=== PATIENT | female | born 1965 | race Caucasian/White ===

== ENCOUNTER 2022-06-24 10:52 | Inpatient (IN) ==
[2022-06-24] MEDS ORDERED: cefTRIAXone SODIUM 2,000 MG/70 ML BAG IV STA (11:21)
[2022-06-24] MEDS ORDERED: ALBUT/IPRATROP 3MG/0.5MG NEB 3 ML VIAL NEB ONE (11:21)
[2022-06-24] MEDS ORDERED: methylPREDNISolone 125 MG/2 ML VIAL IV STA (11:21)
--- NOTE | 2022-06-24 11:34 | Emergency Department Note ---
Impression & Plan Hypoxia, COPD exacerbation, SOB (shortness of breath), Left leg swelling ED Provider Note NAME: KYLAH Chen YOUNG AGE: 56 SEX: F : 1965 ARRIVES VIA: Ambulance INFORMANT: [Patient][nursing] ED PROVIDER(S): [Griffin Palafox MD] CHIEF COMPLAINT: Short of breath HISTORY OF PRESENT ILLNESS: The patient is a 56-year-old female with a history of COPD. She has noticed increasing shortness of breath for a few months. In the last 2 or 3 weeks, she has had increased cough. The cough has been productive. She has had some chills and sweats but no fever. She feels much worse with exertion. She denies chest pain. There has been no abdominal pain. The patient has notic ed some bloody stools with bowel movements but this has been an ongoing issue she feels from her hemorrhoids. The patient went to her doctor's office today, her O2 saturation was low at 84%, she does not typically wear oxygen. She was sent to the hospital for evaluation. REVIEW OF SYSTEMS: See HPI for pertinent positives and negatives. A total of ten systems were r eviewed and were otherwise negative. PMHx/PSHx: See Below SOCIAL HISTORY: See Below. PHYSICAL EXAM: GENERAL: Patient is in no acute distress. HEENT: No acute trauma, normocephalic atraumatic, mucous membranes moist, no nasal congestion, no scleral icterus. NECK: No stridor, no adenopathy, no meningismus, trachea is midline. LUNGS: The patient does seem short of breath with speaking. No actual respiratory distress. She has wheezing bilaterally with diminished breath sounds bilaterally. HEART: Without murmurs gallops or rubs, regular rate and rhythm. ABDOMEN: Soft, nontender, bowel sounds positive, no peritonitis. EXTREMITIES: No cyanosis. The left lower extremity is edematous when compared to the right. There is some slight erythema to the left lower extremity but no increased warmth. NEUROLOGIC: Oriented x 3, no acute motor or sensory deficits, no focal weakness. SKIN: No jaundice, no diaphoresis. DIFFERENTIAL DIAGNOSIS: Reactive airway disease, pneumonia, COVID-19, influenza, RSV, pneumothorax, COPD, CHF, infection, cardiac ischemia, pulmonary embolism, bronchitis, m usculoskeletal, gastrointestinal, as well as other pathologies. EMERGENCY DEPARTMENT COURSE/PROCEDURES: ECG: Indication was shortness of breath. The ECG shows a normal sinus rhythm with a rate of 67. There is a right bundle branch block. There is no ST elevation. No PVCs. The QTc is 456. Compared to an ECG from 31 May 2018, I see no significant change. Continuous Cardiac Monitoring: An order was placed for continuous cardiac monitoring. The monitor shows a rate of 72 with normal sinus rhythm. Critical Care Note: I have personally spent 49 minutes of critical care time in the direct management of this patient. This includes bedside care, interpretation of diagnostic studies, and testing, discussion with consultants, patient, and family members, and other required patient management activities. This 49 minutes is in excess of all separately billable procedures. MEDICAL DECISION MAKING: There is no leukocytosis or concerning anemia. There is a normal platelet count. No coagulopathy. No renal failure or significant electrolyte abnormality. Lactic acid level is not elevated making severe sepsis less likely. No worrisome liver enzyme elevation. ECG shows a normal sinus rhythm, no ischemia. Cardiac enzyme testing x1 is not consistent with acute cardiac injury. Urinalysis does not show infection. COVID, influenza and RSV test were negative. Chest x-ray did not show pneumonia or CHF, no pneumothorax. The patient was wheezing and seemed quite short of breath. She was recorded hypoxic at her doctor's office. The patient was aggressively managed. She was given a 1 hour DuoNeb, she received IV Solu-Medrol and IV ceftriaxone. The ceftriaxone was for empiric antibiotic coverage. The patient is in need of a hospital stay. She is in no condition to be discharged home. She appears to be having an exacerbation of her COPD. I did speak with the case management team, I talked to the patient. The on-call hospitalist was consulted. Past Med/Surg History Medical History Asthma inhalers and nebulizer prn Biliary colic Chronic back pain on suboxone Chronic hepatitis Treated with Mavyret, 8 week course. Finished in 05/2019 Closed head injury pt states "a long time ago" COPD (chronic obstructive pulmonary disease) Depression Emphysema lung History of drug abuse History of DVT (deep vein thrombosis) hx of in left leg HTN (hypertension) Migraine Morbid obesity with BMI of 40.0-44.9, adult Obesity, morbid, BMI 40.0-49.9 Personal history of stroke with residual effects 12/2016--left side pain--no neurologist [facility] Reactive lymphoid hyperplasia (RLH) of head, face and neck Tobacco use Surgical History History of bilateral tubal ligation History of section x3 History of colonoscopy History of herniorrhaphy History of tooth extraction all teeth removed Hx of bilateral breast reduction surgery Family History Aunt Family history of diabetes mellitus Mother Family history of diabetes mellitus Other Cancer Diabetes Heart disease Hypertension Liver transplant recipient No family history of adverse response to anesthesia Social History Smoking Status: Current every day smoker Cigarettes Per Day: 0.5; Second Hand Exposure: Yes (father smoked); Do You Dip or Chew Tobacco: No; Tobacco Cessation Education Requested by Patient: No Hx Alcohol Use: No Hx Substance Use: Yes (pt states currently on suboxone) Preferred Language: Uzbek Communication Ability: Impaired Lead Presser Required: Yes and No Beliefs That Will Affect Care: None marital status: in relationship Current Living Situation: Other Current Living Situation Comment: patient states she lives with "her old man" Feels Safe at Home: Yes Safety Concerns: Feels Safe At This Time Assistive Devices: Cane and Glasses Assistive Devices Comment: pt states she has a cane at home but doesn't use it Allergies Allergies Allergy/AdvReac Type Severity Reaction Status Date / Time Penicillins Allergy Severe Hives Verified 05/03/20 12:20 adhesive AdvReac Intermediate itching Verified 05/03/20 12:20 morphine AdvReac Intermediate redness, Verified 05/03/20 12:20 hives tramadol AdvReac Intermediate vomiting Verified 05/03/20 12:20 Home Meds Home Medications Medication Instructions Recorded Confirmed albuterol sulfate 90 mcg/actuation 2 puff inhalation Q4H PRN 06/24/22 06/24/22 aerosol inhaler Shortness Of Breath Or Wheezing buprenorphine 8 mg-naloxone 2 mg 1 tab sublingual TID 06/24/22 06/24/22 sublingual tablet ipratropium 0.5 mg-albuterol 3 mg 3 ml inhalation Q4H PRN Shortness 06/24/22 06/24/22 (2.5 mg base)/3 mL nebulization Of Breath Or Wheezing soln pantoprazole 20 mg tablet,delayed 20 mg PO DAILY 06/24/22 06/24/22 release Results & Data (ED) Vital Signs Vital Signs - 24 hr 06/24/22 10:53 06/24/22 10:53 06/24/22 14:03 Temperature 36.9 C Temperature Source Oral Pulse Rate 71 Pulse Rate from SpO2 Sensor Respiratory Rate 22 Blood Pressure 132/77 Blood Pressure Mean 95 Pulse Oximetry 92 88 L Oxygen Delivery Method Room Air Room Air Room Air Oxygen Flow Rate Sepsis Recent Fever Within 48 Hours No Sepsis New/Unexplained Change in Mental Status No Sepsis Action Taken by Nursing No Action Required 06/24/22 11:02 06/24/22 11:30 06/24/22 12:00 Temperature Temperature Source Pulse Rate 68 64 Pulse Rate from SpO2 Sensor 67 Respiratory Rate 15 18 Blood Pressure Blood Pressure Mean Pulse Oximetry 94 97 99 Oxygen Delivery Method Nasal Cannula Nasal Cannula Nasal Cannula Oxygen Flow Rate 2 2 2 Sepsis Recent Fever Within 48 Hours Sepsis New/Unexplained Change in Mental Status Sepsis Action Taken by Nursing 06/24/22 12:30 06/24/22 13:00 06/24/22 13:30 Temperature Temperature Source Pulse Rate 68 71 64 Pulse Rate from SpO2 Sensor Respiratory Rate 21 15 13 Blood Pressure Blood Pressure Mean Pulse Oximetry 100 92 93 Oxygen Delivery Method Nasal Cannula Nasal Cannula Nasal Cannula Oxygen Flow Rate 2 2 2 Sepsis Recent Fever Within 48 Hours Sepsis New/Unexplained Change in Mental Status Sepsis Action Taken by Nursing 06/24/22 14:00 Temperature Temperature Source Pulse Rate 62 Pulse Rate from SpO2 Sensor Respiratory Rate 20 Blood Pressure Blood Pressure Mean Pulse Oximetry 88 L Oxygen Delivery Method Room Air Oxygen Flow Rate Sepsis Recent Fever Within 48 Hours Sepsis New/Unexplained Change in Mental Status Sepsis Action Taken by Shelter Medications Current Medication List: was personally reviewed by me Laboratory Data Attestation: I reviewed the patient's lab results. Result diagrams: 06/24/22 12:27 06/24/22 12:27 Lab Results 06/24/22 06/24/22 06/24/22 Range/Units 12:27 12:27 12:27 WBC 8.56 (4.8-10.8) K/ul RBC 4.20 (3.93-5.22) M/uL Hgb 13.8 (12.0-16.0) g/dl Hct 42.1 (34.1-44.9) % MCV 100.2 H (80.0-100.0) fL MCH 32.9 (25.0-34.0) pg MCHC 32.8 (32.0-36.0) g/dL RDW Std Deviation 49.0 H (36.4-46.3) fL RDW Coeff of Sharon 13.3 (11.5-14.5) % Plt Count 157 (130-400) K/uL MPV 12.3 (9.4-12.3) fL Immature Gran % (Auto) 0.2 % Neut % (Auto) 76.3 % Lymph % (Auto) 16.5 % [place]umas % (Auto) 4.3 % Eos % (Auto) 2.3 % Baso % (Auto) 0.4 % Neut # (Auto) 6.53 H (1.4-6.5) K/uL Lymph # (Auto) 1.41 (1.2-3.4) K/uL [place] # (Auto) 0.37 (0.24-0.82) K/uL Eos # (Auto) 0.20 (0-0.50) K/uL Baso # (Auto) 0.03 (0-0.2) K/uL Immature Gran # (Auto) 0.02 (0.00-0.02) K/uL PT 10.7 (9.0-12.0) Seconds INR 1.0 (0.9-1.1) APTT 25.1 (21.0-31.0) Seconds PTT Ratio 0.9 Sodium (136-145) mmol/L Potassium (3.5-5.1) mmol/L Chloride (98-107) mmol/L Carbon Dioxide (21-32) mmol/L Anion Gap (3-11) BUN (6-23) mg/dl Creatinine (0.6-1.2) mg/dl Est Cr Clr Drug Dosing ml/min Est GFR ( Amer) ml/min Est GFR (Non-Af Amer) ml/min BUN/Creatinine Ratio (10-20) Glucose (70-99(Fasting)) mg/dl Lactate 0.6 (0.4-2.0) mmol/L Calcium (8.5-10.1) mg/dl Magnesium (1.7-2.4) mg/dl Total Bilirubin (0.2-1.0) mg/dl AST (13-39) U/L ALT (7-52) U/L Alkaline Phosphatase (34-104) U/L Troponin I High Sens (0-14) pg/ml Total Protein (6.0-8.3) gm/dl Albumin (3.4-5.0) gm/dl Globulin (2.5-4.0) gm/dl Albumin/Globulin Ratio (0.9-2) 06/24/22 Range/Units 12:27 WBC (4.8-10.8) K/ul RBC (3.93-5.22) M/uL Hgb (12.0-16.0) g/dl Hct (34.1-44.9) % MCV (80.0-100.0) fL MCH (25.0-34.0) pg MCHC (32.0-36.0) g/dL RDW Std Deviation (36.4-46.3) fL RDW Coeff of Sharon (11.5-14.5) % Plt Count (130-400) K/uL MPV (9.4-12.3) fL Immature Gran % (Auto) % Neut % (Auto) % Lymph % (Auto) % [place] % (Auto) % Eos % (Auto) % Baso % (Auto) % Neut # (Auto) (1.4-6.5) K/uL Lymph # (Auto) (1.2-3.4) K/uL [place] # (Auto) (0.24-0.82) K/uL Eos # (Auto) (0-0.50) K/uL Baso # (Auto) (0-0.2) K/uL Immature Gran # (Auto) (0.00-0.02) K/uL PT (9.0-12.0) Seconds INR (0.9-1.1) APTT (21.0-31.0) Seconds PTT Ratio Sodium 137 (136-145) mmol/L Potassium 4.2 (3.5-5.1) mmol/L Chloride 102 (98-107) mmol/L Carbon Dioxide 32 (21-32) mmol/L Anion Gap 3 (3-11) BUN 14 (6-23) mg/dl Creatinine 0.59 L (0.6-1.2) mg/dl Est Cr Clr Drug Dosing 129.3 ml/min Est GFR ( Amer) 120.4 ml/min Est GFR (Non-Af Amer) 103.9 ml/min BUN/Creatinine Ratio 23.7 H (10-20) Glucose 97 (70-99(Fasting)) mg/dl Lactate (0.4-2.0) mmol/L Calcium 8.5 (8.5-10.1) mg/dl Magnesium 1.7 (1.7-2.4) mg/dl Total Bilirubin 0.4 (0.2-1.0) mg/dl AST 9 L (13-39) U/L ALT 6 L (7-52) U/L Alkaline Phosphatase 102 (34-104) U/L Troponin I High Sens 2.3 (0-14) pg/ml Total Protein 6.4 (6.0-8.3) gm/dl Albumin 3.7 (3.4-5.0) gm/dl Globulin 2.7 (2.5-4.0) gm/dl Albumin/Globulin Ratio 1.4 (0.9-2) Administered Medications Albuterol (Albut/Ipratrop 3mg/0.5mg Neb 3 Ml Vial) 3 ml NEB QIDR [facility]; Protocol Stop: 07/24/22 16:33 Last Admin: 06/24/22 19:26 Dose: 3 ml Documented By: Admin: 06/24/22 17:37 Dose: Not Given Documented By: REMINGTON Enoxaparin Sodium (Enoxaparin Inj 40 Mg/0.4 Ml Syr) 40 mg SQ Q24H [facility] Stop: 07/24/22 16:59 Last Admin: 06/24/22 17:52 Dose: 40 mg Documented By: LOU Nicotine (Nicotine 14 Mg/24 Hr Patch) 14 mg TD QAM [facility] Stop: 07/24/22 16:59 Last Admin: 06/24/22 17:52 Dose: 14 mg Documented By: LOU Discontinued Medications Albuterol (Albut/Ipratrop 3mg/0.5mg Neb 3 Ml Vial) 12 ml NEB ONE ONE; Protocol Stop: 06/24/22 11:22 Last Admin: 06/24/22 11:51 Dose: 12 ml Documented By: HG Furosemide (Furosemide Inj 20 Mg/2 Ml Vial) 20 mg IV NOW STA Stop: 06/24/22 15:04 Last Admin: 06/24/22 15:36 Dose: 20 mg Documented By: ML Ceftriaxone Sodium (Rocephin) 2,000 mg in 70 mls @ 140 mls/hr IV NOW STA Stop: 06/24/22 11:50 Last Infusion: 06/24/22 12:14 Dose: 0 mls/hr Documented By: Admin: 06/24/22 11:42 Dose: 140 mls/hr Documented By: HG Methylprednisolone (Methylprednisolone 125 Mg/2 Ml Vial) 125 mg IV NOW STA Stop: 06/24/22 11:22 Last Admin: 06/24/22 11:40 Dose: 125 mg Documented By: HG Imaging Data Radiologist's Impression: Chest X-Ray 06/24/22 11:22 XR chest 1V portable HISTORY: Dyspnea COMPARISON: Chest 05/31/2018. FINDINGS: The heart is borderline enlarged. There is mild central pulmonary vascular congestion without overt edema. No focal lung consolidations to suggest a pneumonia. No pleural effusions. No pneumothorax. IMPRESSION: Mild central pulmonary vascular congestion without overt edema. ACT 112: Negative or not required by law. Electronically signed by: Julio Jones M.D. 06/24/2022 12:23 PM Venous Doppler Study 06/24/22 11:22 LEFT LOWER EXTREMITY VENOUS DOPPLER HISTORY: Dyspnea COMPARISON STUDY: Left leg venous Doppler 05/31/2018. FINDINGS: The left common femoral vein is patent. There is again noted chronic standing within the left femoral, popliteal, posterior tibial veins consistent with chronic thrombus. This remains unchanged. There is normal compressibility, flow, and augmentation within the left lower extremity deep venous system. IMPRESSION: No change in the chronic nonocclusive DVT as described above. No evidence for acute DVT within the left lower extremity. ACT 112: Negative or not required by law. Electronically signed by: Julio Jones M.D. 06/24/2022 2:38 PM Discharge Plan Visit Data Chief Complaint: Shortness of Breath/Dyspnea ED Provider: Griffin Palafox Discharge Problem: Hypoxia, COPD exacerbation, SOB (shortness of breath), Left leg swelling Patient Disposition: Admitted As Inpatient Condition: Fair Discharge Instructions Interventions: ED Discharge Assessment Last Done: 06/24/22 15:56
--- NOTE | 2022-06-24 12:25 | XRay Report ---
XR chest 1V portable HISTORY: Dyspnea COMPARISON: Chest 05/31/2018. FINDINGS: The heart is borderline enlarged. There is mild central pulmonary vascular congestion witho ut overt edema. No focal lung consolidations to suggest a pneumonia. No pleural effusions. No pneumot horax. IMPRESSION: Mild central pulmonary vascular congestion without overt edema. ACT 112: Negative or not required by law. Electronically signed by: Julio Jones M.D. 06/24/2022 12:23 PM
[2022-06-24 12:40] LABS: Basophils # (auto) 0.03 K/uL (0-0.2); Basophils % (auto) 0.4 %; Eosinophils % (auto) 2.3 %; Hematocrit (blood only) 42.1 % (34.1-44.9); Hemoglobin 13.8 g/dl (12.0-16.0); Immature Granulocytes # (auto) 0.02 K/uL (0.00-0.02); Immature Granulocytes % (auto) 0.2 %; Lymphocytes # (auto) 1.41 K/uL (1.2-3.4); Lymphocytes % (auto) 16.5 %; Mean Corpuscular Hemoglobin 32.9 pg (25.0-34.0); Mean Corpuscular Hgb Conc 32.8 g/dL (32.0-36.0); Mean Corpuscular Volume 100.2 fL (80.0-100.0); Mean Platelet Volume 12.3 fL (9.4-12.3); Monocytes # (auto) 0.37 K/uL (0.24-0.82); Monocytes % (auto) 4.3 %; Neutrophils # (auto) 6.53 K/uL (1.4-6.5); Neutrophils % (auto) 76.3 %; Platelet Count 157 K/uL (130-400); RDW Coefficient of Variation 13.3 % (11.5-14.5); White Blood Count 8.56 K/ul (4.8-10.8)
[2022-06-24 12:50] LABS: Partial Thromboplastin Ratio 0.9; Partial Thromboplastin Time 25.1 Seconds (21.0-31.0); Prothrombin Time 10.7 Seconds (9.0-12.0)
[2022-06-24 13:05] LABS: Troponin I High Sensitivity 2.3 pg/ml (0-14)
[2022-06-24 13:06] LABS: Albumin Globulin Ratio 1.4 (0.9-2); Albumin Level 3.7 gm/dl (3.4-5.0); BUN Creatinine Ratio 23.7 (10-20); Bilirubin,Total 0.4 mg/dl (0.2-1.0); Calcium 8.5 mg/dl (8.5-10.1); Creatinine Clr Calc Pharmacy 129.3 ml/min; Est GFR (African American) 120.4 ml/min; Est GFR (Non-African American) 103.9 ml/min; Globulin 2.7 gm/dl (2.5-4.0); Magnesium 1.7 mg/dl (1.7-2.4); Potassium 4.2 mmol/L (3.5-5.1); Total Protein 6.4 gm/dl (6.0-8.3)
[2022-06-24 13:17] LABS: Influenza A virus by PCR Negative (Neg); Influenza B virus by PCR Negative (Neg); RSV by PCR Negative (Neg); SARS CoV2 RNA(COVID-19) Ceph NEGATIVE (Negative)
--- NOTE | 2022-06-24 14:13 | History & Physical Report ---
Date of Service June 24, 2022 Assessment & Plan (1) Acute respiratory failure: (2) COPD exacerbation: Plan: Patient is 56-year-old female with PMH COPD, chronic DVT LLE, RBBB, HTN, chronic hepatitis C presented to ER with c/o increased exertional SOB for past 2-3 months with acute worsening past 2 weeks with productive cough, congestion. Has not been using inhalers outpatient. Outpatient clinic today with O2 sat of 84% In ER afebrile, 88% on RA up to 92% on 2L via NC, other vitals stable. No leukocytosis, lactate WNL. Negative COVID-19, influenza, RSV PCR CXR: Mild central pulmonary vascular congestion without overt edema. Suspect acute COPD exacerbation. DDx: CHF Blood cultures pending In ER given Rocephin, hour-long neb treatment, Solu-Medrol 125mg IV Patient previously on fluticasone-salmeterol 250-50 however has not taken for years. Albuterol that she had been using is outdated Supplemental oxygen as needed Continue Rocephin Duonebs Solu-Medrol 40 mg every 8 hours Monitor I's and O's, low-sodium diet BNP pending. Initial dose Lasix 20 mg IV given in ER. Monitor. May need to consider further work-up CBC, BMP in a.m. (3) Edema of left lower extremity: Plan: Chronic DVT of LLE Chronic edema of LLE, skin discoloration LLE venous Doppler: No change in the chronic nonocclusive DVT as described above. No evidence for acute DVT within the left lower extremity If worsening may need to consider arterial Doppler (4) HTN (hypertension): Plan: Patient has not seen PCP for 2 years. Has not been on medication BP stable Monitor BP (5) Chronic hepatitis: Plan: Chronic hepatitis C Completed treatment with Mavyret x8 weeks and 05/2019 (6) History of drug abuse: Plan: History IV drug use with cocaine. Last use reported in 2008 Follows with [facility] Continue Suboxone (7) Tobacco use: Plan: Smokes half pack per day x40 years Smoking cessation encouraged Nicotine patch (8) Constipation: Plan: Chronic constipation with chronic painful BMs and red rectal bleeding with BMs only. Patient on Suboxone Hemoglobin stable. Start bowel regimen History colonoscopy 2020 diverticulosis sigmoid colon, otherwise unremarkable exam May need to consider outpatient GI follow-up (9) Obesity, morbid, BMI 40.0-49.9: Plan: BMI 48 Lifestyle modifications recommended DVT Prophylaxis Lovenox SQ Full Code as per discussion with pt Follows with Dr Santiago for routine care Pt was seen and care coordinated with Dr Avila. See addendum History of Present Illness Chief Complaint: SOB Primary Care Provider: Elliott Santiago MD Patient is 56-year-old female with PMH COPD, chronic DVT LLE, RBBB, HTN, chronic hepatitis C presented to ER with c/o SOB. History obtained from patient and chart review. Patient reports past 2 to 3 months with shortness of breath with exertion and chest tightness. Minimal exertion with walking throughout her house makes her short of breath and she needs to stop and rest. Also has dizziness with the exertional shortness of breath. She complains of increasing shortness of breath and wheezing of the last couple weeks. Has chronic nonproductive cough however has worsened over the past couple weeks. Reports nasal congestion, sweats, decreased appetite productive cough of green color sputum for the past 2 weeks. Denies any known fever. She has been using an albuterol inhaler as needed without relief however, inhaler patient has been using in 2018. She states she has been using a friend's nebulizer past few days with minimal relief of shortness of breath. She reports chronic left lower extremity edema and leg discoloration. Feels more pain to left lower leg and more purple discoloration for past couple of months. History of DVT to that leg many years ago. Patient denies any recent injury or trauma. Patient reports has been sedentary secondary to exertional shortness of breath. Chronic orthopnea, uses 2 pillows. Unsure if worsening. Also reports chronic constipation. Does not use any OTC treatments. She reports pain to anus with BM as well as bright red blood noted on toilet paper with BMs. Denies rectal bleeding not associated with BMs. History colonoscopy 2019: Diverticulosis in sigmoid colon, exam otherwise normal. Patient was seen at PCP office today and found to have pulse ox of 84% on room air and was transported to ER via EMS. Patient has not been seen at PCP since 2019 and has not been taking her medications regularly. Denies N/V/D, CHEN, syncope, vision changes, neck pain, palpitations, hemoptysis, sore throat, choking, otalgia, abdominal pain, paresthesias, weakness, extremity weakness, rashes, urinary symptoms. Allergies Allergy/AdvReac Type Severity Reaction Status Date / Time Penicillins Allergy Severe Hives Verified 05/03/20 12:20 adhesive AdvReac Intermediate itching Verified 05/03/20 12:20 morphine AdvReac Intermediate redness, Verified 05/03/20 12:20 hives tramadol AdvReac Intermediate vomiting Verified 05/03/20 12:20 Home Medications Medication Instructions Recorded Confirmed Type albuterol sulfate 90 mcg/actuation 2 puff inhalation Q4H PRN 06/24/22 06/24/22 History aerosol inhaler Shortness Of Breath Or Wheezing buprenorphine 8 mg-naloxone 2 mg 1 tab sublingual TID 06/24/22 06/24/22 History sublingual tablet ipratropium 0.5 mg-albuterol 3 mg 3 ml inhalation Q4H PRN Shortness 06/24/22 06/24/22 History (2.5 mg base)/3 mL nebulization Of Breath Or Wheezing soln pantoprazole 20 mg tablet,delayed 20 mg PO DAILY 06/24/22 06/24/22 History release Past Med/Surg History Medical History Asthma inhalers and nebulizer prn Biliary colic Chronic back pain on suboxone Chronic hepatitis Treated with Mavyret, 8 week course. Finished in 05/2019 Closed head injury pt states "a long time ago" COPD (chronic obstructive pulmonary disease) Depression Emphysema lung History of drug abuse History of DVT (deep vein thrombosis) hx of in left leg HTN (hypertension) Migraine Morbid obesity with BMI of 40.0-44.9, adult Obesity, morbid, BMI 40.0-49.9 Personal history of stroke with residual effects 12/2016--left side pain--no neurologist RBBB Reactive lymphoid hyperplasia (RLH) of head, face and neck Tobacco use Surgical History History of bilateral tubal ligation History of section x3 History of colonoscopy History of herniorrhaphy History of tooth extraction all teeth removed Hx of bilateral breast reduction surgery Family History Aunt Family history of diabetes mellitus Mother Family history of diabetes mellitus Other Cancer Diabetes Heart disease Hypertension Liver transplant recipient No family history of adverse response to anesthesia Social History Smoking Status: Current every day smoker Cigarettes Per Day: 0.5; Second Hand Exposure: Yes (father smoked); Do You Dip or Chew Tobacco: No; Tobacco Cessation Education Requested by Patient: No Hx Alcohol Use: No Hx Substance Use: Yes (pt states currently on suboxone) Preferred Language: [place] Communication Ability: Impaired Document Control Associate Required: Yes and No Beliefs That Will Affect Care: None marital status: in relationship Current Living Situation: Other Current Living Situation Comment: patient states she lives with "her old man" Feels Safe at Home: Yes Safety Concerns: Feels Safe At This Time Assistive Devices: Cane and Glasses Assistive Devices Comment: pt states she has a cane at home but doesn't use it Review of Systems Review of Systems: All systems reviewed & are unremarkable except as noted in HPI & below Physical Exam Physical Exam: General: no acute distress on 2L oxygen, obese Head: normocephalic, atraumatic Eyes: conjunctiva non-injected, anicteric ENT: normal inspection external ears, nose, mucous membranes moist Neck: supple, trachea midline Lungs: +dyspneic with lying supine, sitting up in no respiratory distress on 2L via NC, +diffuse wheezing throughout, no rales noted CV: RRR, no murmur Abd: protuberant, normal BS, soft, non-tender Rectal: +skin tag, no thrombosed hemorrhoids, no fissure noted, no blood noted Ext: no cyanosis, LLE: +edema, red/purple discoloration lower leg, skin is warm to touch and similar to RLE, +diffuse tenderness to palpation LLE, dorsalis pedis pulses intact, sensation to light touch intact Neuro: A&O x 3, no focal deficits noted, normal affect Skin: warm, dry Results & Data Results & Data ([facility]) Vital Signs (Past 12 Hours) Vital Signs Temp Pulse Resp BP Pulse Ox O2 Del Method 06/24/22 14:03 88 L Room Air 06/24/22 10:53 36.9 C 71 22 132/77 92 Room Air 06/24/22 10:53 Room Air Laboratory Results Short CBC 12/07/22 Range/Units 12:27 WBC 8.56 (4.8-10.8) K/ul Hgb 13.8 (12.0-16.0) g/dl Hct 42.1 (34.1-44.9) % Plt Count 157 (130-400) K/uL BMP 06/24/22 12:27 Sodium 137 Potassium 4.2 Chloride 102 Carbon Dioxide 32 BUN 14 Creatinine 0.59 L Glucose 97 Calcium 8.5 Liver Function 06/24/22 Range/Units 12:27 Total Bilirubin 0.4 (0.2-1.0) mg/dl AST 9 L (13-39) U/L ALT 6 L (7-52) U/L Alkaline Phosphatase 102 (34-104) U/L Albumin 3.7 (3.4-5.0) gm/dl Diagnostic Findings Chest X-Ray 06/24/22 11:22 XR chest 1V portable HISTORY: Dyspnea COMPARISON: Chest 05/31/2018. FINDINGS: The heart is borderline enlarged. There is mild central pulmonary vascular congestion without overt edema. No focal lung consolidations to suggest a pneumonia. No pleural effusions. No pneumothorax. IMPRESSION: Mild central pulmonary vascular congestion without overt edema. ACT 112: Negative or not required by law. Electronically signed by: Julio Jones M.D. 06/24/2022 12:23 PM Venous Doppler Study 06/24/22 11:22 LEFT LOWER EXTREMITY VENOUS DOPPLER HISTORY: Dyspnea COMPARISON STUDY: Left leg venous Doppler 05/31/2018. FINDINGS: The left common femoral vein is patent. There is again noted chronic standing within the left femoral, popliteal, posterior tibial veins consistent with chronic thrombus. This remains unchanged. There is normal compressibility, flow, and augmentation within the left lower extremity deep venous system. IMPRESSION: No change in the chronic nonocclusive DVT as described above. No evidence for acute DVT within the left lower extremity. ACT 112: Negative or not required by law. Electronically signed by: Julio Jones M.D. 06/24/2022 2:38 PM ECG Rhythm: sinus rhythm Findings: + RBBB Change: no significant change Supervising Physician Co-Signing Physician Notes ATTENDING ADDENDUM: I have seen and examined the patient and have discussed the case with the provider above. I agree with the assessment and plan as stated with the following exceptions. 56-year-old female smoker presents with a COPD exacerbation. Symptoms including cough, productive sputum, shortness of breath especially with exertion have been present for the past couple of weeks. She is on chronic Suboxone and has a low activity level at baseline. She has a history of a provoked DVT with over 30 years ago and reports that 7 months back her leg from the knee down became more swollen, darker in color and painful. She reports some numbness is present in this area. Denies history of CAD or CHF. On physical exam she is overweight and is not in any significant respiratory distress. She has an intermittent coarse cough and wheezing all throughout her lung carrasquillo. She is resting comfortably at 94% oxygen saturation on 2 L/min via nasal cannula. She has no conversational dyspnea. Cardiac auscultation reveals S1/2 without murmurs gallops or rubs. Abdomen is protuberant but soft and nondistended. Miosis is seen in the right pupil with left pupil being of normal diameter. Patient reports not being able to sweat on her left side? Work-up reveals a normal CBC with an elevated MCV of 100. Coags are within normal limits, CMP is within normal limits. Magnesium is 1.7. Lactate is 0.6. Glucose within normal limits. Urinalysis is unrevealing. Nasal swab for flu, RSV and COVID are negative. CXR with no infiltrate and mild congestion. Overall this is an obese 56-year-old smoker presenting with COPD exacerbation. Agree with continuation of steroids, scheduled nebulized bronchodilator therapy and Rocephin. Smoking cessation strongly advised. Continue oxygen supplementation and other supportive cares as needed. For her left leg she has very tight leggings on today which may be obscuring the color of her left leg which was slightly darker than the right. An ultrasound Doppler of the left leg revealed evidence of a chronic DVT. We will continue to monitor this leg with the leggings off to see if there is any difference by tomorrow. May consider arterial studies if needed but would probably be best served as outpatient. For her anisocoria and anhydrosis, will screen for pancoast tumor with chest CT. DO [place]
--- NOTE | 2022-06-24 14:30 | Electrocardiogram Report ---
Test Reason : Blood Pressure : / mmHG Vent. Rate : 067 BPM Atrial Rate : 067 BPM P-R Int : 146 ms QRS Dur : 134 ms QT Int : 432 ms P-R-T Axes : 035 042 026 degrees QTc Int : 456 ms Normal sinus rhythm Right bundle branch block Abnormal ECG When compared with ECG of 31-MAY-2018 18:21, No significant change was found Confirmed by Julien Jimenez ([id number]) on 06/24/2022 2:30:17 PM Referred By: Confirmed By:Julien Jimenez
--- NOTE | 2022-06-24 14:40 | Ultrasound Report ---
LEFT LOWER EXTREMITY VENOUS DOPPLER HISTORY: Dyspnea COMPARISON STUDY: Left leg venous Doppler 05/31/2018. FINDINGS: The left common femoral vein is patent. There is again noted chronic standing within the le ft femoral, popliteal, posterior tibial veins consistent with chronic thrombus. This remains unchange d. There is normal compressibility, flow, and augmentation within the left lower extremity deep venou s system. IMPRESSION: No change in the chronic nonocclusive DVT as described above. No evidence for acute DVT within the le ft lower extremity. ACT 112: Negative or not required by law. Electronically signed by: Julio Jones M.D. 06/24/2022 2:38 PM
[2022-06-24] MEDS ORDERED: FUROSEMIDE INJ 20 MG/2 ML VIAL IV STA (15:03)
[2022-06-24 16:03] LABS: Appearance Urine Clear (Clear); Bilirubin Urine Negative (Negative); Blood Urine Negative (Negative); Color Urine Yellow; Glucose Urine UA Negative (Negative); Ketones Urine Negative (Negative); Leukocyte Esterase Urine Negative (Negative); Nitrite Urine Negative (Negative); Protein Urine Negative (Negative); Specific Gravity Urine 1.018 (1.000-1.030); Urobilinogen Urine Negative (Negative); pH Urine 5.5 (4.5-7.5)
--- NOTE | 2022-06-24 16:04 | Communication Note ---
Date of Service: June 24, 2022 ATTENDING ADDENDUM: I have seen and examined the patient and have discussed the case with the provider above. I agree with the assessment and plan as stated with the following exceptions. 56-year-old female smoker presents with a COPD exacerbation. Symptoms including cough, productive sputum, shortness of breath especially with exertion have been present for the past couple of weeks. She is on chronic Suboxone and has a low activity level at baseline. She has a history of a provoked DVT with over 30 years ago and reports that 7 months back her leg from the knee down became more swollen, darker in color and painful. She reports some numbness is present in this area. Denies history of CAD or CHF. On physical exam she is overweight and is not in any significant respiratory distress. She has an intermittent coarse cough and wheezing all throughout her lung carrasquillo. She is resting comfortably at 94% oxygen saturation on 2 L/min via nasal cannula. She has no conversational dyspnea. Cardiac auscultation reveals S1/2 without murmurs gallops or rubs. Abdomen is protuberant but soft and nondistended. Miosis is seen in the right pupil with left pupil being of normal diameter. Patient reports not being able to sweat on her left side? Work-up reveals a normal CBC with an elevated MCV of 100. Coags are within normal limits, CMP is within normal limits. Magnesium is 1.7. Lactate is 0.6. Glucose within normal limits. Urinalysis is unrevealing. Nasal swab for flu, RSV and COVID are negative. CXR with no infiltrate and mild congestion. Overall this is an obese 56-year-old smoker presenting with COPD exacerbation. Agree with continuation of steroids, scheduled nebulized bronchodilator therapy and Rocephin. Smoking cessation strongly advised. Continue oxygen supplementation and other supportive cares as needed. For her left leg she has very tight leggings on today which may be obscuring the color of her left leg which was slightly darker than the right. An ultrasound Doppler of the left leg revealed evidence of a chronic DVT. We will continue to monitor this leg with the leggings off to see if there is any difference by tomorrow. May consider arterial studies if needed but would probably be best served as outpatient. For her anisocoria and anhydrosis, will screen for pancoast tumor with chest CT. DO [place]
[2022-06-24] MEDS ORDERED: ONDANSETRON INJ 2 MG/ML 2 ML VIAL IV PRN (16:34)
--- NOTE | 2022-06-24 16:59 | CT Scan Report ---
CT chest diagnostic wo con CT DOSE: 886.51 mGy.cm HISTORY: Maryanne's syndrome. Shortness of breath. Atypical chest pain., rule out pancoast tumor TECHNIQUE: Multiaxial CT images of the chest were performed without contrast. A dose lowering techni que was utilized adhering to the principles of ALARA. COMPARISON: Chest CTA 03/23/2016. FINDINGS: The central airways are patent. No pneumothorax. No pleural effusions. A stable 3 mm subple ural nodule within the right middle lobe on image 176. There is a punctate calcified granuloma within the base of the right lower lobe posteriorly. Small patchy densities within the lung bases favor dep endent change/atelectasis. Otherwise, no focal lung consolidations to suggest a pneumonia. No new or suspicious pulmonary nodules identified. No suspicious lytic or blastic osseous lesions. Degenerative changes noted within the thoracic spine. No mediastinal or hilar lymphadenopathy. Normal caliber tho racic aorta. Mild calcified plaque within the coronary arteries. The heart is normal in size. Limited views of the upper abdomen demonstrate a normal liver, spleen, and adrenal glands. Normal esophagus. IMPRESSION: No significant abnormality within the chest. Specifically, no pulmonary masses identified ACT 112: Negative or not required by law. Electronically signed by: Julio Jones M.D. 06/24/2022 4:57 PM
[2022-06-24] MEDS: ALBUT/IPRATROP 3MG/0.5MG NEB 3 ML VIAL NEB SCH ×2 (17:37→19:26)
[2022-06-24] MEDS: ENOXAPARIN INJ 40 MG/0.4 ML SYR SQ SCH (17:52)
[2022-06-24] MEDS: NICOTINE 14 MG/24 HR PATCH TD SCH (17:52)
[2022-06-24] MEDS: DOCUSATE SODIUM 100 MG CAP PO SCH (19:48)
[2022-06-24] MEDS: BUPRENORPHINE/NALOXONE 8/2 MG TAB SL SCH (20:30)
[2022-06-24] MEDS ORDERED: NON-FORMULARY MEDICATION (Buprenorphine-Naloxone 8-2 mg tablet, sublingual) SL SCH (21:00)
[2022-06-24] MEDS ORDERED: ALBUT/IPRATROP 3MG/0.5MG NEB 3 ML VIAL NEB STA (22:53)
[2022-06-24] MEDS: MAGNESIUM SULFATE / D5W 1 GM/100 ML BAG IV SCH (23:23)
[2022-06-25] MEDS: MAGNESIUM SULFATE / D5W 1 GM/100 ML BAG IV SCH (01:19)
[2022-06-25] MEDS: ALBUT/IPRATROP 3MG/0.5MG NEB 3 ML VIAL NEB SCH ×6 (07:19→22:15)
[2022-06-25] MEDS: NICOTINE 14 MG/24 HR PATCH TD SCH (07:23)
[2022-06-25] MEDS: POLYETHYLENE (MIRALAX) 17 GM PACK PO SCH (07:24)
[2022-06-25] MEDS: DOCUSATE SODIUM 100 MG CAP PO SCH ×2 (07:24→20:24)
[2022-06-25] MEDS: ACETAMINOPHEN 325 MG TAB PO PRN (07:24)
[2022-06-25] MEDS: PANTOprazole 40 MG TAB PO SCH (07:24)
[2022-06-25] MEDS: methylPREDNISolone 40 MG in SYRINGE 0 ML IV SCH ×2 (07:25→17:11)
[2022-06-25] MEDS: BUPRENORPHINE/NALOXONE 8/2 MG TAB SL SCH ×3 (07:25→20:37)
[2022-06-25 08:55] LABS: Hematocrit (blood only) 42.9 % (34.1-44.9); Hemoglobin 14.5 g/dl (12.0-16.0); Mean Corpuscular Hemoglobin 32.4 pg (25.0-34.0); Mean Corpuscular Hgb Conc 33.8 g/dL (32.0-36.0); Mean Corpuscular Volume 95.8 fL (80.0-100.0); Mean Platelet Volume 12.3 fL (9.4-12.3); Platelet Count 166 K/uL (130-400); RDW Coefficient of Variation 13.2 % (11.5-14.5); RDW Standard Deviation 46.6 fL (36.4-46.3); Red Blood Count 4.48 M/uL (3.93-5.22); White Blood Count 11.59 K/ul (4.8-10.8)
[2022-06-25 09:26] LABS: BUN Creatinine Ratio 32.2 (10-20); Calcium 9.1 mg/dl (8.5-10.1); Creatinine Clr Calc Pharmacy 126.9 ml/min; Est GFR (African American) 120.4 ml/min; Est GFR (Non-African American) 103.9 ml/min; Potassium 4.7 mmol/L (3.5-5.1)
[2022-06-25] MEDS: FLUTICASONE/VILANTEROL 100/25MCG 14 PUFFS/INHALER INH SCH (10:31)
[2022-06-25] MEDS ORDERED: cefTRIAXone SODIUM 2,000 MG in DEXTROSE 5% 50 ML IV SCH (11:00)
[2022-06-25] MEDS ORDERED: ALBUT/IPRATROP 3MG/0.5MG NEB 3 ML VIAL NEB SCH (12:15)
--- NOTE | 2022-06-25 12:29 | Hospitalist Progress Note ---
Date of Service June 25, 2022 Assessment & Plan (1) Acute respiratory failure: (2) COPD exacerbation: Plan: Patient is 56-year-old female with PMH COPD, chronic DVT LLE, RBBB, HTN, chronic hepatitis C presented to ER with c/o increased exertional SOB for past 2-3 months with acute worsening past 2 weeks with productive cough, congestion. Has not been using inhalers outpatient. Outpatient clinic today with O2 sat of 84% In ER afebrile, 88% on RA up to 92% on 2L via NC, other vitals stable. No leukocytosis, lactate WNL. Negative COVID-19, influenza, RSV PCR CXR: Mild central pulmonary vascular congestion without overt edema. Suspect acute COPD exacerbation. DDx: CHF Blood cultures pending In ER given Rocephin, hour-long neb treatment, Solu-Medrol 125mg IV Patient previously on fluticasone-salmeterol 250-50 however has not taken for years. Albuterol that she had been using is outdated BNP- 100s. Plan: DuoNeb [id number] every 4 hours. Continue IV steroid with methylprednisolone. Azithromycin for 3 days for COPD excerebration. will start the patient on LAMA on discharge for COPD management. Will need follow-up with PCP and pulmonology referral. (3) Edema of left lower extremity: Plan: Chronic DVT of LLE Chronic edema of LLE, skin discoloration LLE venous Doppler: No change in the chronic nonocclusive DVT as described a shanel. No evidence for acute DVT within the left lower extremity (4) HTN (hypertension): Plan: Patient has not seen PCP for 2 years. Has not been on medication BP stable Monitor BP (5) Chronic hepatitis: Plan: Chronic hepatitis C Completed treatment with [facility] x8 weeks and 05/2019 (6) History of drug abuse: Plan: History IV drug use with cocaine. Last use reported in 2008 Follows with [facility] Continue Suboxone (7) Tobacco use: Plan: Smokes half pack per day x40 years Nicotine patch Discussed smoking cessation (8) Constipation: Plan: Chronic constipation with chronic painful BMs and red rectal bleeding with BMs only. Patient on Suboxone Hemoglobin stable. Start bowel regimen History colonoscopy 2020 diverticulosis sigmoid colon, otherwise unremarkable exam (9) Obesity, morbid, BMI 40.0-49.9: Plan: BMI 48 Lifestyle modifications recommended DVT Prophylaxis Lovenox SQ Full Code as per discussion with pt Follows with Dr Santiago for routine care Admission and Anticipated Discharge Date Admission Date: June 24, 2022 Subjective Patient seen and examined at bedside. She reports shortness of breath on exertion. Denies any chest pain, dizziness, abdominal pain or urinary symptoms. Review of Systems Review of Systems: All systems reviewed & are unremarkable except as noted in Subjective Physical Exam Physical Exam: Constitutional: WD/WN, vitals as above, NAD, sitting up in bed, pleasant, conversing easily Respiratory: Bilateral wheeze heard with prolonged expiration. Cardiovascular: RRR, no murmur, no edema Vessels: no JVD or carotid bruit Chest: normal inspection of chest Abdomen: normal bowel sounds, soft, nontender, no hepatosplenomegaly Musculoskeletal: no cyanosis or clubbing, extremities motor strength 5/5 Skin: no rashes, warm and dry normal turgor Neurologic: PERRL, EOMI, accommodation nl, no face palsy, no dysarthria CN's II- XI intact bilaterally and moves all extremities Psychiatric: A+Ox3, euthymic affect Lymphatic: no cervical or axillary lymphadenopathy : deferred Results & Data Results & Data ([facility]) Vital Signs (Past 12 Hours) Vital Signs Temp Pulse Pulse Resp BP Pulse Ox O2 Del Method 06/25/22 11:38 36.5 C 76 18 125/69 95 Nasal Cannula 06/25/22 10:48 74 20 94 Nasal Cannula 06/25/22 08:00 Nasal Cannula 06/25/22 07:29 36.7 C 79 20 149/99 H 93 Nasal Cannula 06/25/22 07:21 70 20 91 Nasal Cannula 06/25/22 07:03 86 06/25/22 03:38 36.6 C 61 18 111/75 94 Nasal Cannula O2 Flow Rate 06/25/22 11:38 2 06/25/22 10:48 2 06/25/22 08:00 2 06/25/22 07:29 2 06/25/22 07:21 2 06/25/22 07:03 06/25/22 03:38 2 Laboratory Results Laboratory Results WBC 11.59 K/ul (4.8-10.8) H 06/25/22 08:27 RBC 4.48 M/uL (3.93-5.22) 06/25/22 08: Hgb 14.5 g/dl (12.0-16.0) 06/25/22 08: Hct 42.9 % (34.1-44.9) 06/25/22 08: MCV 95.8 fL (80.0-100.0) 06/25/22 08: MCH 32.4 pg (25.0-34.0) 06/25/22 08: MCHC 33.8 g/dL (32.0-36.0) 06/25/22 08: RDW Std Deviation 46.6 fL (36.4-46.3) H 06/25/22 08: RDW Coeff of [place] 13.2 % (11.5-14.5) 06/25/22 08: Plt Count 166 K/uL (130-400) 06/25/22 08: MPV 12.3 fL (9.4-12.3) 06/25/22 08: Immature Gran % (Auto) 0.2 % 06/24/22 12:27 Neut % (Auto) 76.3 % 06/24/22 12:27 Lymph % (Auto) 16.5 % 06/24/22 12:27 [place] % (Auto) 4.3 % 06/24/22 12:27 Eos % (Auto) 2.3 % 06/24/22 12:27 Baso % (Auto) 0.4 % 06/24/22 12:27 Neut # (Auto) 6.53 K/uL (1.4-6.5) H 06/24/22 12:27 Lymph # (Auto) 1.41 K/uL (1.2-3.4) 06/24/22 12:27 [place] # (Auto) 0.37 K/uL (0.24-0.82) 06/24/22 12:27 Eos # (Auto) 0.20 K/uL (0-0.50) 06/24/22 12:27 Baso # (Auto) 0.03 K/uL (0-0.2) 06/24/22 12:27 Immature Gran # (Auto) 0.02 K/uL (0.00-0.02) 06/24/22 12:27 PT 10.7 Seconds (9.0-12.0) 06/24/22 12:27 INR 1.0 (0.9-1.1) 06/24/22 12:27 APTT 25.1 Seconds (21.0-31.0) 06/24/22 12:27 PTT Ratio 0.9 06/24/22 12:27 Sodium 136 mmol/L (136-145) 06/25/22 08:27 Potassium 4.7 mmol/L (3.5-5.1) 06/25/22 08:27 Chloride 101 mmol/L (98-107) 06/25/22 08:27 Carbon Dioxide 28 mmol/L (21-32) 06/25/22 08:27 Anion Gap 7 (3-11) 06/25/22 08:27 BUN 19 mg/dl (6-23) 06/25/22 08:27 Creatinine 0.59 mg/dl (0.6-1.2) L 06/25/22 08:27 Est Cr Clr Drug Dosing 126.9 ml/min 06/25/22 08:27 Est GFR ( Amer) 120.4 ml/min 06/25/22 08:27 Est GFR (Non-Af Amer) 103.9 ml/min 06/25/22 08:27 BUN/Creatinine Ratio 32.2 (10-20) H 06/25/22 08:27 Glucose 127 mg/dl (70-99(Fasting)) H 06/25/22 08:27 Lactate 0.6 mmol/L (0.4-2.0) 06/24/22 12:27 Calcium 9.1 mg/dl (8.5-10.1) 06/25/22 08:27 Magnesium 1.7 mg/dl (1.7-2.4) 06/24/22 12:27 Total Bilirubin 0.4 mg/dl (0.2-1.0) 06/24/22 12:27 AST 9 U/L (13-39) L 06/24/22 12:27 ALT 6 U/L (7-52) L 06/24/22 12:27 Alkaline Phosphatase 102 U/L (34-104) 06/24/22 12:27 Troponin I High Sens 2.3 pg/ml (0-14) 06/24/22 12:27 B-Natriuretic Peptide 100 pg/ml (0-100) 06/24/22 15:50 Total Protein 6.4 gm/dl (6.0-8.3) 06/24/22 12:27 Albumin 3.7 gm/dl (3.4-5.0) 06/24/22 12:27 Globulin 2.7 gm/dl (2.5-4.0) 06/24/22 12: Albumin/Globulin Ratio 1.4 (0.9-2) 06/24/22 12:27 Urine Color Yellow 06/24/22 15:48 Urine Appearance Clear (Clear) 06/24/22 15:48 Urine pH 5.5 (4.5-7.5) 06/24/22 15:48 Ur Specific [place] 1.018 (1.000-1.030) 06/24/22 15:48 Urine Protein Negative (Negative) 06/24/22 15:48 Urine Glucose (UA) Negative (Negative) 06/24/22 15:48 Urine Ketones Negative (Negative) 06/24/22 15:48 Urine Blood Negative (Negative) 06/24/22 15:48 Urine Nitrite Negative (Negative) 06/24/22 15:48 Urine Bilirubin Negative (Negative) 06/24/22 15:48 Urine Urobilinogen Negative (Negative) 06/24/22 15:48 Ur Leukocyte Esterase Negative (Negative) 06/24/22 15:48 SARS-CoV-2 (PCR) NEGATIVE (Negative) 06/24/22 Unknown Influenza Type A (PCR) Negative (Neg) 06/24/22 Unknown Influenza Type B (PCR) Negative (Neg) 06/24/22 Unknown RSV (RT-PCR) Negative (Neg) 06/24/22 Unknown Impressions Chest X-Ray 06/24/22 11:22 XR chest 1V portable HISTORY: Dyspnea COMPARISON: Chest 05/31/2018. FINDINGS: The heart is borderline enlarged. There is mild central pulmonary vascular congestion without overt edema. No focal lung consolidations to suggest a pneumonia. No pleural effusions. No pneumothorax. IMPRESSION: Mild central pulmonary vascular congestion without overt edema. ACT 112: Negative or not required by law. Electronically signed by: Julio Jones M.D. 06/24/2022 12:23 PM Venous Doppler Study 06/24/22 11:22 LEFT LOWER EXTREMITY VENOUS DOPPLER HISTORY: Dyspnea COMPARISON STUDY: Left leg venous Doppler 05/31/2018. FINDINGS: The left common femoral vein is patent. There is again noted chronic standing within the left femoral, popliteal, posterior tibial veins consistent with chronic thrombus. This remains unchanged. There is normal compressibility, flow, and augmentation within the left lower extremity deep venous system. IMPRESSION: No change in the chronic nonocclusive DVT as described above. No evidence for acute DVT within the left lower extremity. ACT 112: Negative or not required by law. Electronically signed by: Julio Jones M.D. 06/24/2022 2:[address] 06/24/22 15:59 CT chest diagnostic wo con CT DOSE: 886.51 mGy.cm HISTORY: Maryanne's syndrome. Shortness of breath. Atypical chest pain., rule out pancoast tumor TECHNIQUE: Multiaxial CT images of the chest were performed without contrast. A dose lowering technique was utilized adhering to the principles of ALARA. COMPARISON: Chest CTA 03/23/2016. FINDINGS: The central airways are patent. No pneumothorax. No pleural effusions. A stable 3 mm subpleural nodule within the right middle lobe on image 176. There is a punctate calcified granuloma within the base of the right lower lobe posteriorly. Small patchy densities within the lung bases favor dependent change/atelectasis. Otherwise, no focal lung consolidations to suggest a pneumonia. No new or suspicious pulmonary nodules identified. No suspicious lytic or blastic osseous lesions. Degenerative changes noted within the thoracic spine. No mediastinal or hilar lymphadenopathy. Normal caliber thoracic aorta. Mild calcified plaque within the coronary arteries. The heart is normal in size. Limited views of the upper abdomen demonstrate a normal liver, spleen, and adrenal glands. Normal esophagus. IMPRESSION: No significant abnormality within the chest. Specifically, no pulmonary masses identified ACT 112: Negative or not required by law. Electronically signed by: Julio Jones M.D. 06/24/2022 4:57 PM
[2022-06-25] MEDS: AZITHROMYCIN 250 MG TAB PO SCH (13:29)
[2022-06-25] MEDS: ENOXAPARIN INJ 40 MG/0.4 ML SYR SQ SCH (17:12)
[2022-06-25] MEDS: DICLOFENAC SOD 1% GEL 100 GM TUBE EXT SCH (20:24)
[2022-06-26] MEDS: methylPREDNISolone 40 MG in SYRINGE 0 ML IV SCH ×3 (01:31→16:44)
[2022-06-26] MEDS: ALBUT/IPRATROP 3MG/0.5MG NEB 3 ML VIAL NEB SCH ×6 (02:55→22:14)
[2022-06-26 07:25] LABS: Basophils # (auto) 0.01 K/uL (0-0.2); Basophils % (auto) 0.1 %; Hematocrit (blood only) 42.9 % (34.1-44.9); Hemoglobin 13.7 g/dl (12.0-16.0); Immature Granulocytes # (auto) 0.09 K/uL (0.00-0.02); Immature Granulocytes % (auto) 0.6 %; Lymphocytes # (auto) 0.63 K/uL (1.2-3.4); Lymphocytes % (auto) 4.4 %; Mean Corpuscular Hgb Conc 31.9 g/dL (32.0-36.0); Mean Corpuscular Volume 100.2 fL (80.0-100.0); Mean Platelet Volume 13.1 fL (9.4-12.3); Monocytes # (auto) 0.38 K/uL (0.24-0.82); Monocytes % (auto) 2.7 %; Neutrophils # (auto) 13.09 K/uL (1.4-6.5); Neutrophils % (auto) 92.2 %; Platelet Count 159 K/uL (130-400); RDW Coefficient of Variation 13.5 % (11.5-14.5); RDW Standard Deviation 49.4 fL (36.4-46.3); Red Blood Count 4.28 M/uL (3.93-5.22)
[2022-06-26 07:28] LABS: BUN Creatinine Ratio 37.7 (10-20); Calcium 8.8 mg/dl (8.5-10.1); Creatinine Clr Calc Pharmacy 96.1 ml/min; Est GFR (African American) 114.4 ml/min; Est GFR (Non-African American) 98.7 ml/min; Potassium 4.8 mmol/L (3.5-5.1)
[2022-06-26] MEDS: PANTOprazole 40 MG TAB PO SCH (08:24)
[2022-06-26] MEDS: AZITHROMYCIN 250 MG TAB PO SCH (08:24)
[2022-06-26] MEDS: FLUTICASONE/VILANTEROL 100/25MCG 14 PUFFS/INHALER INH SCH (08:25)
[2022-06-26] MEDS: DICLOFENAC SOD 1% GEL 100 GM TUBE EXT SCH ×2 (08:25→20:58)
[2022-06-26] MEDS: NICOTINE 14 MG/24 HR PATCH TD SCH (08:25)
[2022-06-26] MEDS: BUPRENORPHINE/NALOXONE 8/2 MG TAB SL SCH ×3 (08:31→20:58)
[2022-06-26] MEDS: POLYETHYLENE (MIRALAX) 17 GM PACK PO SCH (08:31)
[2022-06-26] MEDS: DOCUSATE SODIUM 100 MG CAP PO SCH ×2 (08:31→20:58)
--- NOTE | 2022-06-26 10:13 | Hospitalist Progress Note ---
Date of Service June 26, 2022 Assessment & Plan (1) Acute respiratory failure: (2) COPD exacerbation: Plan: Patient is 56-year-old female with PMH COPD, chronic DVT LLE, RBBB, HTN, chronic hepatitis C presented to ER with c/o increased exertional SOB for past 2-3 months with acute worsening past 2 weeks with productive cough, congestion. Has not been using inhalers outpatient. Outpatient clinic today with O2 sat of 84% In ER afebrile, 88% on RA up to 92% on 2L via NC, other vitals stable. No leukocytosis, lactate WNL. Negative COVID-19, influenza, RSV PCR CXR: Mild central pulmonary vascular congestion without overt edema. Suspect acute COPD exacerbation. DDx: CHF Blood cultures pending In ER given Rocephin, hour-long neb treatment, Solu-Medrol 125mg IV Patient previously on fluticasone-salmeterol 250-50 however has not taken for years. Albuterol that she had been using is outdated BNP- 100s. Plan: Patient continues to be symptomatic and has bilateral wheeze on examination. We will continue on DuoNeb [id number]. Continue IV steroid for today; will transition to oral based on response. Azithromycin for 3 days for COPD excerebration; 6 currently on day 2. will start the patient on LAMA on discharge for COPD management. Will need follow-up with PCP and pulmonology referral. (3) Edema of left lower extremity: Plan: Chronic DVT of LLE Chronic edema of LLE, skin discoloration LLE venous Doppler: No change in the chronic nonocclusive DVT as described above. No evidence for acute DVT within the left lower extremity (4) HTN (hypertension): Plan: Patient has not seen PCP for 2 years. Has not been on medication BP stable Monitor BP (5) Chronic hepatitis: Plan: Chronic hepatitis C Completed treatment with [facility] x8 weeks and 05/2019 (6) History of drug abuse: Plan: History IV drug use with cocaine. Last use reported in 2008 Follows with [facility] Continue Suboxone (7) Tobacco use: Plan: Smokes half pack per day x40 years Nicotine patch Discussed smoking cessation (8) Constipation: Plan: Chronic constipation with chronic painful BMs and red rectal bleeding with BMs only. Patient on Suboxone Hemoglobin stable. on bowel regimen History colonoscopy 2020 diverticulosis sigmoid colon, otherwise unremarkable exam (9) Obesity, morbid, BMI 40.0-49.9: Plan: BMI 48 Lifestyle modifications recommended DVT Prophylaxis Lovenox SQ Full Code as per discussion with pt Follows with Dr Santiago for routine care Admission and Anticipated Discharge Date Admission Date: June 24, 2022 Subjective Patient seen and examined at bedside. She reports slight improvement in her shortness of breath. No chest pain, abdomen pain or urinary symptoms. She feels that the breathing treatment has been helping her. Review of Systems Review of Systems: All systems reviewed & are unremarkable except as noted in Subjective Physical Exam Physical Exam: Constitutional: WD/WN, vitals as above, NAD, sitting up in bed, pleasant, conversing easily Respiratory: Bilateral wheeze heard; slightly improved compared to yesterday. Cardiovascular: RRR, no murmur, no edema Vessels: no JVD or carotid bruit Chest: normal inspection of chest Abdomen: normal bowel sounds, soft, nontender, no hepatosplenomegaly Musculoskeletal: no cyanosis or clubbing, extremities motor strength 5/5 Skin: no rashes, warm and dry normal turgor Neurologic: PERRL, EOMI, accommodation nl, no face palsy, no dysarthria CN's II- XI intact bilaterally and moves all extremities Psychiatric: A+Ox3, euthymic affect Lymphatic: no cervical or axillary lymphadenopathy : deferred Results & Data Results & Data ([facility]) Vital Signs (Past 12 Hours) Vital Signs Temp Pulse Pulse Resp BP BP Pulse Ox 06/26/22 07:43 06/26/22 07:36 36.9 C 65 18 113/70 95 06/26/22 07:22 63 19 96 06/26/22 06:49 54 L 06/26/22 03:35 36.5 C 75 16 118/70 94 06/26/22 02:30 06/25/22 22:29 80 06/25/22 23:05 36.9 C 78 20 103/66 93 06/25/22 22:16 76 18 94 O2 Del Method O2 Flow Rate 06/26/22 07:43 Nasal Cannula 2 06/26/22 07:36 Nasal Cannula 2 06/26/22 07:22 Nasal Cannula 2 06/26/22 06:49 06/26/22 03:35 Nasal Cannula 1.5 06/26/22 02:30 Nasal Cannula 2 06/25/22 22:29 06/25/22 23:05 Nasal Cannula 2.0 06/25/22 22:16 Nasal Cannula 2 Laboratory Results Laboratory Results WBC 14.20 K/ul (4.8-10.8) H 06/26/22 06:15 RBC 4.28 M/uL (3.93-5.22) 06/26/22 06:15 Hgb 13.7 g/dl (12.0-16.0) 06/26/22 06:15 Hct 42.9 % (34.1-44.9) 06/26/22 06:15 MCV 100.2 fL (80.0-100.0) H 06/26/22 06:15 MCH 32.0 pg (25.0-34.0) 06/26/22 06:15 MCHC 31.9 g/dL (32.0-36.0) L 06/26/22 06:15 RDW Std Deviation 49.4 fL (36.4-46.3) H 06/26/22 06:15 RDW Coeff of [place] 13.5 % (11.5-14.5) 06/26/22 06:15 Plt Count 159 K/uL (130-400) 06/26/22 06:15 MPV 13.1 fL (9.4-12.3) H 06/26/22 06:15 Immature Gran % (Auto) 0.6 % 06/26/22 06:15 Neut % (Auto) 92.2 % 06/26/22 06:15 Lymph % (Auto) 4.4 % 06/26/22 06:15 [place] % (Auto) 2.7 % 06/26/22 06:15 Eos % (Auto) 0.0 % 06/26/22 06:15 Baso % (Auto) 0.1 % 06/26/22 06:15 Neut # (Auto) 13.09 K/uL (1.4-6.5) H 06/26/22 06:15 Lymph # (Auto) 0.63 K/uL (1.2-3.4) L 06/26/22 06:15 [place] # (Auto) 0.38 K/uL (0.24-0.82) 06/26/22 06:15 Eos # (Auto) 0.00 K/uL (0-0.50) 06/26/22 06:15 Baso # (Auto) 0.01 K/uL (0-0.2) 06/26/22 06:15 Immature Gran # (Auto) 0.09 K/uL (0.00-0.02) H 06/26/22 06:15 PT 10.7 Seconds (9.0-12.0) 06/24/22 12:27 INR 1.0 (0.9-1.1) 06/24/22 12:27 APTT 25.1 Seconds (21.0-31.0) 06/24/22 12:27 PTT Ratio 0.9 06/24/22 12:27 Sodium 138 mmol/L (136-145) 06/26/22 06:15 Potassium 4.8 mmol/L (3.5-5.1) 06/26/22 06:15 Chloride 104 mmol/L (98-107) 06/26/22 06:15 Carbon Dioxide 30 mmol/L (21-32) 06/26/22 06:15 Anion Gap 4 (3-11) 06/26/22 06:15 BUN 26 mg/dl (6-23) H 06/26/22 06:15 Creatinine 0.69 mg/dl (0.6-1.2) 06/26/22 06:15 Est Cr Clr Drug Dosing 96.1 ml/min 06/26/22 06:15 Est GFR ( Amer) 114.4 ml/min 06/26/22 06:15 Est GFR (Non-Af Amer) 98.7 ml/min 06/26/22 06:15 BUN/Creatinine Ratio 37.7 (10-20) H 06/26/22 06:15 Glucose 134 mg/dl (70-99(Fasting)) H 06/26/22 06:15 Lactate 0.6 mmol/L (0.4-2.0) 06/24/22 12:27 Calcium 8.8 mg/dl (8.5-10.1) 06/26/22 06:15 Magnesium 1.7 mg/dl (1.7-2.4) 06/24/22 12:27 Total Bilirubin 0.4 mg/dl (0.2-1.0) 06/24/22 12:27 AST 9 U/L (13-39) L 06/24/22 12:27 ALT 6 U/L (7-52) L 06/24/22 12:27 Alkaline Phosphatase 102 U/L (34-104) 06/24/22 12:27 Troponin I High Sens 2.3 pg/ml (0-14) 06/24/22 12:27 B-Natriuretic Peptide 100 pg/ml (0-100) 06/24/22 15:50 Total Protein 6.4 gm/dl (6.0-8.3) 06/24/22 12:27 Albumin 3.7 gm/dl (3.4-5.0) 06/24/22 12:27 Globulin 2.7 gm/dl (2.5-4.0) 06/24/22 12:27 Albumin/Globulin Ratio 1.4 (0.9-2) 06/24/22 12:27 Urine Color Yellow 06/24/22 15:48 Urine Appearance Clear (Clear) 06/24/22 15:48 Urine pH 5.5 (4.5-7.5) 06/24/22 15:48 Ur Specific [place] 1.018 (1.000-1.030) 06/24/22 15:48 Urine Protein Negative (Negative) 06/24/22 15:48 Urine Glucose (UA) Negative (Negative) 06/24/22 15:48 Urine Ketones Negative (Negative) 06/24/22 15:48 Urine Blood Negative (Negative) 06/24/22 15:48 Urine Nitrite Negative (Negative) 06/24/22 15:48 Urine Bilirubin Negative (Negative) 06/24/22 15:48 Urine Urobilinogen Negative (Negative) 06/24/22 15:48 Ur Leukocyte Esterase Negative (Negative) 06/24/22 15:48 SARS-CoV-2 (PCR) NEGATIVE (Negative) 06/24/22 Unknown Influenza Type A (PCR) Negative (Neg) 06/24/22 Unknown Influenza Type B (PCR) Negative (Neg) 06/24/22 Unknown RSV (RT-PCR) Negative (Neg) 06/24/22 Unknown Impressions Chest X-Ray 06/24/22 11:22 XR chest 1V portable HISTORY: Dyspnea COMPARISON: Chest 05/31/2018. FINDINGS: The heart is borderline enlarged. There is mild central pulmonary vascular congestion without overt edema. No focal lung consolidations to suggest a pneumonia. No pleural effusions. No pneumothorax. IMPRESSION: Mild central pulmonary vascular congestion without overt edema. ACT 112: Negative or not required by law. Electronically signed by: Julio Jones M.D. 06/24/2022 12:23 PM Venous Doppler Study 06/24/22 11:22 LEFT LOWER EXTREMITY VENOUS DOPPLER HISTORY: Dyspnea COMPARISON STUDY: Left leg venous Doppler 05/31/2018. FINDINGS: The left common femoral vein is patent. There is again noted chronic standing within the left femoral, popliteal, posterior tibial veins consistent with chronic thrombus. This remains unchanged. There is normal compressibility, flow, and augmentation within the left lower extremity deep venous system. IMPRESSION: No change in the chronic nonocclusive DVT as described above. No evidence for acute DVT within the left lower extremity. ACT 112: Negative or not required by law. Electronically signed by: Julio Jones M.D. 06/24/2022 2:[address] 06/24/22 15:59 CT chest diagnostic wo con CT DOSE: 886.51 mGy.cm HISTORY: Maryanne's syndrome. Shortness of breath. Atypical chest pain., rule out pancoast tumor TECHNIQUE: Multiaxial CT images of the chest were performed without contrast. A dose lowering technique was utilized adhering to the principles of ALARA. COMPARISON: Chest CTA 03/23/2016. FINDINGS: The central airways are patent. No pneumothorax. No pleural effusions. A stable 3 mm subpleural nodule within the right middle lobe on image 176. There is a punctate calcified granuloma within the base of the right lower lobe posteriorly. Small patchy densities within the lung bases favor dependent change/atelectasis. Otherwise, no focal lung consolidations to suggest a pneumonia. No new or suspicious pulmonary nodules identified. No suspicious lytic or blastic osseous lesions. Degenerative changes noted within the thoracic spine. No mediastinal or hilar lymphadenopathy. Normal caliber thoracic aorta. Mild calcified plaque within the coronary arteries. The heart is normal in size. Limited views of the upper abdomen demonstrate a normal liver, spleen, and adrenal glands. Normal esophagus. IMPRESSION: No significant abnormality within the chest. Specifically, no pulmonary masses identified ACT 112: Negative or not required by law. Electronically signed by: Julio Jones M.D. 06/24/2022 4:57 PM
[2022-06-26] MEDS: ENOXAPARIN INJ 40 MG/0.4 ML SYR SQ SCH (16:44)
[2022-06-27] MEDS: methylPREDNISolone 40 MG in SYRINGE 0 ML IV SCH ×3 (00:50→16:10)
[2022-06-27] MEDS: ALBUT/IPRATROP 3MG/0.5MG NEB 3 ML VIAL NEB SCH ×6 (02:28→22:24)
[2022-06-27 06:37] LABS: BUN Creatinine Ratio 38.2 (10-20); Calcium 8.4 mg/dl (8.5-10.1); Creatinine Clr Calc Pharmacy 99.3 ml/min; Est GFR (African American) 114.9 ml/min; Est GFR (Non-African American) 99.2 ml/min
[2022-06-27 07:03] LABS: Basophils # (auto) 0.01 K/uL (0-0.2); Basophils % (auto) 0.1 %; Hematocrit (blood only) 42.8 % (34.1-44.9); Hemoglobin 13.7 g/dl (12.0-16.0); Immature Granulocytes # (auto) 0.16 K/uL (0.00-0.02); Immature Granulocytes % (auto) 1.3 %; Lymphocytes # (auto) 0.63 K/uL (1.2-3.4); Lymphocytes % (auto) 5.1 %; Mean Corpuscular Hemoglobin 32.3 pg (25.0-34.0); Mean Corpuscular Volume 100.9 fL (80.0-100.0); Mean Platelet Volume 13.2 fL (9.4-12.3); Monocytes # (auto) 0.29 K/uL (0.24-0.82); Monocytes % (auto) 2.4 %; Neutrophils # (auto) 11.21 K/uL (1.4-6.5); Neutrophils % (auto) 91.1 %; Platelet Count 152 K/uL (130-400); RDW Coefficient of Variation 13.4 % (11.5-14.5); RDW Standard Deviation 49.8 fL (36.4-46.3); Red Blood Count 4.24 M/uL (3.93-5.22)
[2022-06-27] MEDS: NICOTINE 14 MG/24 HR PATCH TD SCH (08:41)
[2022-06-27] MEDS: PANTOprazole 40 MG TAB PO SCH (08:41)
[2022-06-27] MEDS: POLYETHYLENE (MIRALAX) 17 GM PACK PO SCH (08:41)
[2022-06-27] MEDS: DICLOFENAC SOD 1% GEL 100 GM TUBE EXT SCH ×2 (08:42→21:21)
[2022-06-27] MEDS: AZITHROMYCIN 250 MG TAB PO SCH (08:42)
[2022-06-27] MEDS: DOCUSATE SODIUM 100 MG CAP PO SCH ×2 (08:43→21:22)
[2022-06-27] MEDS: ACETAMINOPHEN 325 MG TAB PO PRN ×3 (08:44→21:24)
[2022-06-27] MEDS: BUPRENORPHINE/NALOXONE 8/2 MG TAB SL SCH ×3 (08:50→21:24)
--- NOTE | 2022-06-27 09:46 | Pulmonary Consultation ---
Date of Consultation June 27, 2022 Assessment & Plan (1) Bronchospasm: (2) SOB (shortness of breath): (3) Tobacco use: (4) Obesity, morbid, BMI 40.0-49.9: Plan Agree with empiric systemic corticosteroids and weaning to p.o. steroids starting tomorrow. Agree with Pulmicort and Brovana while inpatient. Continue 4 times daily DuoNebs. We will also add hypertonic saline and vest percussive therapy to help promote mucociliary clearance. Incentive spirometry to help promote lung expansion. Would not give more than a 10-day course of systemic corticosteroids. Transition to high-dose ICS/LABA under the presumption that she has asthma and COPD overlap. Will need RAST panel and IgE level as an outpatient. Will need PFTs and NIOX. Recommend out of bed to chair. Early PT. Target oxygen saturations 90 to 92%. Will need oxygen evaluation prior to discharge. Complete smoking cessation encouraged. Weight loss encouraged. Recommend outpatient sleep study. Discussed with bedside nurse and asked that she call RT for an urgent DuoNeb treatment now given the patient's cough and wheezing. Thank you for the consult. Please call with questions. History of Present Illness Reason for Consultation: "COPD exacerbation" Attending Physician: Sacha Graves MD History of Present Illness 56-year-old female with a history of DVT, hypertension, hepatitis C, IV drug abuse and tobacco abuse presenting to the hospital due to increasing shortness of breath and cough. She is currently requiring supplemental oxygen. She is on IV Solu-Medrol, Pulmicort twice daily and Brovana twice daily. CT chest this admission did not reveal any acute findings. No evidence of emphysema seen. She does endorse chronic cough that has gotten worse along with shortness of breath. She is endorsing wheeze. She has a [id number] smoking history. She continues to have a severe cough with occasional yellow sputum production. Denies chest pain. No fevers or chills. Short of breath with minimal exertion. She only uses a rescue inhaler at home and she has run out of the medication. Allergies Allergy/AdvReac Type Severity Reaction Status Date / Time Penicillins Allergy Severe Hives Verified 05/03/20 12:20 adhesive AdvReac Intermediate itching Verified 05/03/20 12:20 morphine AdvReac Intermediate redness, Verified 05/03/20 12:20 hives tramadol AdvReac Intermediate vomiting Verified 05/03/20 12:20 Home Medications Medication Instructions Recorded Confirmed Type albuterol sulfate 90 mcg/actuation 2 puff inhalation Q4H PRN 06/24/22 06/24/22 History aerosol inhaler Shortness Of Breath Or Wheezing buprenorphine 8 mg-naloxone 2 mg 1 tab sublingual TID 06/24/22 06/24/22 History sublingual tablet ipratropium 0.5 mg-albuterol 3 mg 3 ml inhalation Q4H PRN Shortness 06/24/22 06/24/22 History (2.5 mg base)/3 mL nebulization Of Breath Or Wheezing soln pantoprazole 20 mg tablet,delayed 20 mg PO DAILY 06/24/22 06/24/22 History release Patient History Medical History Asthma inhalers and nebulizer prn Biliary colic Bronchospasm Chronic back pain on suboxone Chronic hepatitis Treated with Mavyret, 8 week course. Finished in 05/2019 Closed head injury pt states "a long time ago" COPD (chronic obstructive pulmonary disease) Depression Emphysema lung History of drug abuse History of DVT (deep vein thrombosis) hx of in left leg HTN (hypertension) Migraine Morbid obesity with BMI of 40.0-44.9, adult Obesity, morbid, BMI 40.0-49.9 Personal history of stroke with residual effects 12/2016--left side pain--no neurologist RBBB Reactive lymphoid hyperplasia (RLH) of head, face and neck Tobacco use Surgical History History of bilateral tubal ligation History of section x3 History of colonoscopy History of herniorrhaphy History of tooth extraction all teeth removed Hx of bilateral breast reduction surgery Family History Aunt Family history of diabetes mellitus Mother Family history of diabetes mellitus Other Cancer Diabetes Heart disease Hypertension Liver transplant recipient No family history of adverse response to anesthesia Social History Smoking Status: Current every day smoker Cigarettes Per Day: 0.5; Second Hand Exposure: Yes (father smoked); Do You Dip or Chew Tobacco: No; Tobacco Cessation Education Requested by Patient: No Hx Alcohol Use: No Hx Substance Use: Yes (pt states currently on suboxone) Preferred Language: German Communication Ability: Impaired Fiscal Clerk Required: Yes and No Beliefs That Will Affect Care: None marital status: in relationship Current Living Situation: Other Current Living Situation Comment: patient states she lives with "her old man" Feels Safe at Home: Yes Safety Concerns: Feels Safe At This Time Assistive Devices: Glasses Assistive Devices Comment: pt states she has a cane at home but doesn't use it Review of Systems Review of Systems: All systems reviewed & are unremarkable except as noted in HPI & below Physical Exam Physical Exam: Constitutional: Obese appearing female in mild distress. Eyes: Pupils are equal round and reactive to light. Conjunctivae are normal. Anicteric sclera. Ears nose, mouth and throat: Mallampati class 2. Normal posterior oropharynx. Uvula is midline. Neck: Trachea is midline. Visual inspection is normal. Respiratory: Diffuse expiratory wheeze and rhonchi. Prolonged phase of exhalation. Cardiovascular: Regular rate and rhythm. No murmurs. No edema. Gastrointestinal: Normal bowel sounds, soft, nontender and nondistended. No hepatosplenomegaly noted. Musculoskeletal: No cyanosis. Patient is able to move all extremities. Strength is 5 out of 5 in the upper and lower extremities. Skin: No rashes, warm dry and intact. Neurologic: No obvious focal neurological deficits seen. Psychiatric: Alert and oriented x3 with a euthymic affect. Results & Data Results & Data ([facility]) Vital Signs (Past 12 Hours) Vital Signs Temp Pulse Pulse Resp BP BP Pulse Ox 06/27/22 07:41 06/27/22 07:27 36.6 C 79 20 161/88 H 89 L 06/27/22 06:25 85 27 H 94 06/27/22 04:55 61 127/82 95 06/27/22 03:08 68 141/83 H 06/27/22 02:59 36.6 C 70 18 90/56 L 96 06/27/22 02:29 18 96 06/26/22 21:55 70 06/26/22 23:19 36.8 C 81 20 106/68 94 06/26/22 22:16 79 18 93 O2 Del Method O2 Flow Rate 06/27/22 07:41 Nasal Cannula 2 06/27/22 07:27 Nasal Cannula 2 06/27/22 06:25 Nasal Cannula 1 06/27/22 04:55 Nasal Cannula 2 06/27/22 03:08 06/27/22 02:59 Nasal Cannula 2 06/27/22 02:29 Nasal Cannula 1 06/26/22 21:55 06/26/22 23:19 Nasal Cannula 1 06/26/22 22:16 Nasal Cannula 1 PG Care Time/CCT Total # of Minutes Spent Total Time Spent with Patient: Total time spent is greater than 50% in coordination of care (as documented) at patient's floor/unit and/or counseling patient: Coding Level of Care Code 27689 Inpt Consult Level 5 Diagnoses Bronchospasm J98.01 SOB (shortness of breath) R06.02 Tobacco use Z72.0 Obesity, morbid, BMI 40.0-49.9 E66.01
[2022-06-27] MEDS: BUDESONIDE 0.5 MG/2 ML VIAL (PULMICORT) NEB SCH ×2 (10:18→19:44)
[2022-06-27] MEDS: FORMOTEROL 20 MCG/2 ML VIAL NEB SCH ×2 (10:18→19:44)
--- NOTE | 2022-06-27 11:19 | Hospitalist Progress Note ---
Date of Service June 27, 2022 Assessment & Plan (1) Acute respiratory failure: (2) COPD exacerbation: Plan: Patient is 56-year-old female with PMH COPD, chronic DVT LLE, RBBB, HTN, chronic hepatitis C presented to ER with c/o increased exertional SOB for past 2-3 months with acute worsening past 2 weeks with productive cough, congestion. Has not been using inhalers outpatient. Outpatient clinic today with O2 sat of 84% In ER afebrile, 88% on RA up to 92% on 2L via NC, other vitals stable. No leukocytosis, lactate WNL. Negative COVID-19, influenza, RSV PCR CXR: Mild central pulmonary vascular congestion without overt edema. Suspect acute COPD exacerbation. DDx: CHF Blood cultures pending In ER given Rocephin, hour-long neb treatment, Solu-Medrol 125mg IV Patient previously on fluticasone-salmeterol 250-50 however has not taken for years. Albuterol that she had been using is outdated BNP- 100s. Plan: Patient continues to be symptomatic and has bilateral wheeze on examination. We will continue on DuoNeb [id number]. Continue IV steroid for today; will transition to oral based on response. Pulmonology on board; agree with same. - Started on budesonide and formoterol nebulizer. Azithromycin for 3 days for COPD excerebration; currently on day 3. Plan for transition to high-dose ICS/LABA on discharge. Patient also started on hypertonic saline. --PT OT ordered. (3) Edema of left lower extremity: Plan: Chronic DVT of LLE Chronic edema of LLE, skin discoloration LLE venous Doppler: No change in the chronic nonocclusive DVT as described above. No evidence for acute DVT within the left lower extremity (4) HTN (hypertension): Plan: Patient has not seen PCP for 2 years. Has not been on medication BP stable Monitor BP (5) Chronic hepatitis: Plan: Chronic hepatitis C Completed treatment with Mavyret x8 weeks and 05/2019 (6) History of drug abuse: Plan: History IV drug use with cocaine. Last use reported in 2008 Follows with [facility] Continue Suboxone (7) Tobacco use: Plan: Smokes half pack per day x40 years Nicotine patch Discussed smoking cessation (8) Constipation: Plan: Chronic constipation with chronic painful BMs and red rectal bleeding with BMs only. Patient on Suboxone Hemoglobin stable. on bowel regimen History colonoscopy 2020 diverticulosis sigmoid colon, otherwise unremarkable exam (9) Obesity, morbid, BMI 40.0-49.9: Plan: BMI 48 Lifestyle modifications recommended DVT Prophylaxis Lovenox SQ Full Code as per discussion with pt Follows with Dr Santiago for routine care Admission and Anticipated Discharge Date Admission Date: June 24, 2022 Subjective Patient seen and examined at bedside. She reports continued shortness of breath. She reports that she had attack of asthma overnight. Review of Systems Review of Systems: All systems reviewed & are unremarkable except as noted in Subjective Physical Exam Physical Exam: Constitutional: WD/WN, vitals as above, NAD, sitting up in bed, pleasant, conversing easily Respiratory: Bilateral diffuse wheeze heard with prolonged expiration. Cardiovascular: RRR, no murmur, no edema Vessels: no JVD or carotid bruit Chest: normal inspection of chest Abdomen: normal bowel sounds, soft, nontender, no hepatosplenomegaly Musculoskeletal: no cyanosis or clubbing, extremities motor strength 5/5 Skin: no rashes, warm and dry normal turgor Neurologic: PERRL, EOMI, accommodation nl, no face palsy, no dysarthria CN's II-XI intact bilaterally and moves all extremities Psychiatric: A+Ox3, euthymic affect Lymphatic: no cervical or axillary lymphadenopathy : deferred Results & Data Results & Data ([facility]) Vital Signs (Past 12 Hours) Vital Signs Temp Pulse Pulse Resp BP BP Pulse Ox 06/27/22 11:14 37.1 C 82 19 144/82 H 92 06/27/22 10:23 77 20 95 06/27/22 07:00 84 06/27/22 07:41 06/27/22 07:27 36.6 C 79 20 161/88 H 89 L 06/27/22 06:25 85 27 H 94 06/27/22 04:55 61 127/82 95 06/27/22 03:08 68 141/83 H 06/27/22 02:59 36.6 C 70 18 90/56 L 96 06/27/22 02:29 18 96 06/26/22 23:19 36.8 C 81 20 106/68 94 O2 Del Method O2 Flow Rate 06/27/22 11:14 Nasal Cannula 2 06/27/22 10:23 Nasal Cannula 1 06/27/22 07:00 06/27/22 07:41 Nasal Cannula 2 06/27/22 07:27 Nasal Cannula 2 06/27/22 06:25 Nasal Cannula 1 06/27/22 04:55 Nasal Cannula 2 06/27/22 03:08 06/27/22 02:59 Nasal Cannula 2 06/27/22 02:29 Nasal Cannula 1 06/26/22 23:19 Nasal Cannula 1 Laboratory Results Laboratory Results WBC 12.30 K/ul (4.8-10.8) H 06/27/22 05:44 RBC 4.24 M/uL (3.93-5.22) 06/27/22 05:44 Hgb 13.7 g/dl (12.0-16.0) 06/27/22 05:44 Hct 42.8 % (34.1-44.9) 06/27/22 05:44 MCV 100.9 fL (80.0-100.0) H 06/27/22 05:44 MCH 32.3 pg (25.0-34.0) 06/27/22 05:44 MCHC 32.0 g/dL (32.0-36.0) 06/27/22 05:44 RDW Std Deviation 49.8 fL (36.4-46.3) H 06/27/22 05:44 RDW Coeff of [place] 13.4 % (11.5-14.5) 06/27/22 05:44 Plt Count 152 K/uL (130-400) 06/27/22 05:44 MPV 13.2 fL (9.4-12.3) H 06/27/22 05:44 Immature Gran % (Auto) 1.3 % 06/27/22 05:44 Neut % (Auto) 91.1 % 06/27/22 05:44 Lymph % (Auto) 5.1 % 06/27/22 05:44 [place] % (Auto) 2.4 % 06/27/22 05:44 Eos % (Auto) 0.0 % 06/27/22 05:44 Baso % (Auto) 0.1 % 06/27/22 05:44 Neut # (Auto) 11.21 K/uL (1.4-6.5) H 06/27/22 05:44 Lymph # (Auto) 0.63 K/uL (1.2-3.4) L 06/27/22 05:44 [place] # (Auto) 0.29 K/uL (0.24-0.82) 06/27/22 05:44 Eos # (Auto) 0.00 K/uL (0-0.50) 06/27/22 05:44 Baso # (Auto) 0.01 K/uL (0-0.2) 06/27/22 05:44 Immature Gran # (Auto) 0.16 K/uL (0.00-0.02) H 06/27/22 05:44 PT 10.7 Seconds (9.0-12.0) 06/24/22 12:27 INR 1.0 (0.9-1.1) 06/24/22 12: APTT 25.1 Seconds (21.0-31.0) 06/24/22 12: PTT Ratio 0.9 06/24/22 12:27 Sodium 137 mmol/L (136-145) 06/27/22 05:44 Potassium 5.0 mmol/L (3.5-5.1) 06/27/22 05:44 Chloride 104 mmol/L (98-107) 06/27/22 05:44 Carbon Dioxide 31 mmol/L (21-32) 06/27/22 05:44 Anion Gap 2 (3-11) L 06/27/22 05:44 BUN 26 mg/dl (6-23) H 06/27/22 05:44 Creatinine 0.68 mg/dl (0.6-1.2) 06/27/22 05:44 Est Cr Clr Drug Dosing 99.3 ml/min 06/27/22 05:44 Est GFR ( Amer) 114.9 ml/min 06/27/22 05:44 Est GFR (Non-Af Amer) 99.2 ml/min 06/27/22 05:44 BUN/Creatinine Ratio 38.2 (10-20) H 06/27/22 05:44 Glucose 127 mg/dl (70-99(Fasting)) H 06/27/22 05:44 Lactate 0.6 mmol/L (0.4-2.0) 06/24/22 12:27 Calcium 8.4 mg/dl (8.5-10.1) L 06/27/22 05:44 Magnesium 1.7 mg/dl (1.7-2.4) 06/24/22 12:27 Total Bilirubin 0.4 mg/dl (0.2-1.0) 06/24/22 12:27 AST 9 U/L (13-39) L 06/24/22 12:27 ALT 6 U/L (7-52) L 06/24/22 12:27 Alkaline Phosphatase 102 U/L (34-104) 06/24/22 12:27 Troponin I High Sens 2.3 pg/ml (0-14) 06/24/22 12:27 B-Natriuretic Peptide 100 pg/ml (0-100) 06/24/22 15:50 Total Protein 6.4 gm/dl (6.0-8.3) 06/24/22 12:27 Albumin 3.7 gm/dl (3.4-5.0) 06/24/22 12:27 Globulin 2.7 gm/dl (2.5-4.0) 06/24/22 12:27 Albumin/Globulin Ratio 1.4 (0.9-2) 06/24/22 12:27 Urine Color Yellow 06/24/22 15:48 Urine Appearance Clear (Clear) 06/24/22 15:48 Urine pH 5.5 (4.5-7.5) 06/24/22 15:48 Ur Specific [place] 1.018 (1.000-1.030) 06/24/22 15:48 Urine Protein Negative (Negative) 06/24/22 15:48 Urine Glucose (UA) Negative (Negative) 06/24/22 15:48 Urine Ketones Negative (Negative) 06/24/22 15:48 Urine Blood Negative (Negative) 06/24/22 15:48 Urine Nitrite Negative (Negative) 06/24/22 15:48 Urine Bilirubin Negative (Negative) 06/24/22 15:48 Urine Urobilinogen Negative (Negative) 06/24/22 15:48 Ur Leukocyte Esterase Negative (Negative) 06/24/22 15:48 SARS-CoV-2 (PCR) NEGATIVE (Negative) 06/24/22 Unknown Influenza Type A (PCR) Negative (Neg) 06/24/22 Unknown Influenza Type B (PCR) Negative (Neg) 06/24/22 Unknown RSV (RT-PCR) Negative (Neg) 06/24/22 Unknown Impressions Chest X-Ray 06/24/22 11:22 XR chest 1V portable HISTORY: Dyspnea COMPARISON: Chest 05/31/2018. FINDINGS: The heart is borderline enlarged. There is mild central pulmonary vascular congestion without overt edema. No focal lung consolidations to suggest a pneumonia. No pleural effusions. No pneumothorax. IMPRESSION: Mild central pulmonary vascular congestion without overt edema. ACT 112: Negative or not required by law. Electronically signed by: Julio Jones M.D. 06/24/2022 12:23 PM Venous Doppler Study 06/24/22 11:22 LEFT LOWER EXTREMITY VENOUS DOPPLER HISTORY: Dyspnea COMPARISON STUDY: Left leg venous Doppler 05/31/2018. FINDINGS: The left common femoral vein is patent. There is again noted chronic standing within the left femoral, popliteal, posterior tibial veins consistent with chronic thrombus. This remains unchanged. There is normal compressibility, flow, and augmentation within the left lower extremity deep venous system. IMPRESSION: No change in the chronic nonocclusive DVT as described above. No evidence for acute DVT within the left lower extremity. ACT 112: Negative or not required by law. Electronically signed by: Julio Jones M.D. 06/24/2022 2:[address] 06/24/22 15:59 CT chest diagnostic wo con CT DOSE: 886.51 mGy.cm HISTORY: Maryanne's syndrome. Shortness of breath. Atypical chest pain., rule out pancoast tumor TECHNIQUE: Multiaxial CT images of the chest were performed without contrast. A dose lowering technique was utilized adhering to the principles of ALARA. COMPARISON: Chest CTA 03/23/2016. FINDINGS: The central airways are patent. No pneumothorax. No pleural effusions. A stable 3 mm subpleural nodule within the right middle lobe on image 176. There is a punctate calcified granuloma within the base of the right lower lobe posteriorly. Small patchy densities within the lung bases favor dependent change/atelectasis. Otherwise, no focal lung consolidations to suggest a pneumonia. No new or suspicious pulmonary nodules identified. No suspicious lytic or blastic osseous lesions. Degenerative changes noted within the thoracic spine. No mediastinal or hilar lymphadenopathy. Normal caliber thoracic aorta. Mild calcified plaque within the coronary arteries. The heart is normal in size. Limited views of the upper abdomen demonstrate a normal liver, spleen, and adrenal glands. Normal esophagus. IMPRESSION: No significant abnormality within the chest. Specifically, no pulmonary masses identified ACT 112: Negative or not required by law. Electronically signed by: Julio Jones M.D. 06/24/2022 4:57 PM
[2022-06-27] MEDS: ENOXAPARIN INJ 40 MG/0.4 ML SYR SQ SCH (16:10)
[2022-06-27] MEDS: SODIUM CHLOR 7% 4 ML NEB NEB SCH (19:44)
[2022-06-27] MEDS: guaiFENesin 600 MG TABCR PO SCH (21:22)
[2022-06-28] MEDS: methylPREDNISolone 40 MG in SYRINGE 0 ML IV SCH ×2 (00:51→08:06)
[2022-06-28] MEDS: ALBUT/IPRATROP 3MG/0.5MG NEB 3 ML VIAL NEB SCH ×3 (02:15→10:17)
[2022-06-28] MEDS: ACETAMINOPHEN 325 MG TAB PO PRN (02:39)
[2022-06-28] MEDS: FORMOTEROL 20 MCG/2 ML VIAL NEB SCH (07:23)
[2022-06-28] MEDS: BUDESONIDE 0.5 MG/2 ML VIAL (PULMICORT) NEB SCH (07:23)
[2022-06-28] MEDS: SODIUM CHLOR 7% 4 ML NEB NEB SCH (07:42)
[2022-06-28] MEDS: DICLOFENAC SOD 1% GEL 100 GM TUBE EXT SCH (08:06)
[2022-06-28] MEDS: guaiFENesin 600 MG TABCR PO SCH (08:06)
[2022-06-28] MEDS: NICOTINE 14 MG/24 HR PATCH TD SCH (08:06)
[2022-06-28] MEDS: PANTOprazole 40 MG TAB PO SCH (08:06)
[2022-06-28] MEDS: DOCUSATE SODIUM 100 MG CAP PO SCH (08:07)
[2022-06-28] MEDS: POLYETHYLENE (MIRALAX) 17 GM PACK PO SCH (08:07)
[2022-06-28] MEDS: BUPRENORPHINE/NALOXONE 8/2 MG TAB SL SCH ×2 (08:11→13:39)
--- NOTE | 2022-06-28 10:33 | Pulmonology Progress Note ---
Date of Service June 28, 2022 Assessment & Plan (1) Bronchospasm: (2) SOB (shortness of breath): (3) Tobacco use: (4) Obesity, morbid, BMI 40.0-49.9: Plan Agree with empiric systemic corticosteroids and weaning to p.o. steroids starting today. Agree with Pulmicort and Brovana while inpatient. Continue 4 times daily DuoNebs. Continue hypertonic saline and vest percussive therapy to help promote mucociliary clearance. Incentive spirometry to help promote lung expansion. Would not give more than a 10-day course of systemic corticosteroids. Transition to high-dose ICS/LABA under the presumption that she has asthma and COPD overlap. Will need RAST panel and IgE level as an outpatient. Will need PFTs and NIOX. Recommend out of bed to chair. Early PT. Target oxygen saturations 90 to 92%. Will need oxygen evaluation prior to discharge. Complete smoking cessation encouraged. Weight loss encouraged. Recommend outpatient sleep study. Please call with questions. Pulmonary to sign off. Thank you for the consult. Admission and Anticipated Discharge Date Admission Date: June 24, 2022 Subjective Patient appears comfortable and more improved than yesterday. Saturating well on room air. Wheezing and coughing have improved some. Still not at baseline. Review of Systems Review of Systems: All systems reviewed & are unremarkable except as noted in HPI & below Physical Exam Physical Exam: Constitutional: Obese appearing female in mild distress. Eyes: Pupils are equal round and reactive to light. Conjunctivae are normal. Anicteric sclera. Ears nose, mouth and throat: Mallampati class 2. Normal posterior oropharynx. Uvula is midline. Neck: Trachea is midline. Visual inspection is normal. Respiratory: Diffuse expiratory wheeze and rhonchi. Prolonged phase of exhalation. Cardiovascular: Regular rate and rhythm. No murmurs. No edema. Gastrointestinal: Normal bowel sounds, soft, nontender and nondistended. No hepatosplenomegaly noted. Musculoskeletal: No cyanosis. Patient is able to move all extremities. Strength is 5 out of 5 in the upper and lower extremities. Skin: No rashes, warm dry and intact. Neurologic: No obvious focal neurological deficits seen. Psychiatric: Alert and oriented x3 with a euthymic affect. Results & Data Results & Data ([facility]) Vital Signs (Past 12 Hours) Vital Signs Temp Pulse Pulse Pulse Pulse Pulse Pulse 06/28/22 10:20 105 H 86 76 06/28/22 10:18 83 06/28/22 09:37 36.6 C 65 60 06/28/22 07:10 51 L 06/28/22 07:52 36.6 C 60 06/28/22 07:35 06/28/22 07:26 06/28/22 02:28 36.7 C 65 06/28/22 02:16 06/27/22 23:52 62 06/27/22 22:50 37 C 67 Resp Resp Resp Resp BP BP Pulse Ox 06/28/22 10:20 28 H 20 18 06/28/22 10:18 20 93 06/28/22 09:37 20 161/88 H 155/90 H 94 06/28/22 07:10 06/28/22 07:52 20 155/90 H 94 06/28/22 07:35 06/28/22 07:26 24 06/28/22 02:28 20 155/84 H 94 06/28/22 02:16 20 06/27/22 23:52 06/27/22 22:50 20 144/81 H 95 Pulse Ox Pulse Ox Pulse Ox O2 Del Method O2 Flow Rate 06/28/22 10:20 91 93 92 06/28/22 10:18 Room Air 06/28/22 09:37 06/28/22 07:10 06/28/22 07:52 Nasal Cannula 1 06/28/22 07:35 Nasal Cannula 2 06/28/22 07:26 Nasal Cannula 06/28/22 02:28 Nasal Cannula 0.5 06/28/22 02:16 Nasal Cannula 1 06/27/22 23:52 06/27/22 22:50 Nasal Cannula 0.5 PG Care Time/CCT Total # of Minutes Spent Total Time Spent with Patient: Total time spent is greater than 50% in coordination of care (as documented) at patient's floor/unit and/or counseling patient: Coding Level of Care Code 83266 Subseq Hosp Care Lvl 2 Diagnoses Bronchospasm J98.01 SOB (shortness of breath) R06.02 Tobacco use Z72.0 Obesity, morbid, BMI 40.0-49.9 E66.01
--- NOTE | 2022-06-28 10:57 | Discharge Summary ---
Date of Service June 28, 2022 Admission HPI Per Admitting Provider Patient is 56-year-old female with PMH COPD, chronic DVT LLE, RBBB, HTN, chronic hepatitis C presented to ER with c/o SOB. History obtained from patient and chart review. Patient reports past 2 to 3 months with shortness of breath with exertion and chest tightness. Minimal exertion with walking throughout her house makes her short of breath and she needs to stop and rest. Also has dizziness with the exertional shortness of breath. She complains of increasing shortness of breath and wheezing of the last couple weeks. Has chronic nonproductive cough however has worsened over the past couple weeks. Reports nasal congestion, sweats, decreased appetite productive cough of green color sputum for the past 2 weeks. Denies any known fever. She has been using an albuterol inhaler as needed without relief however, inhaler patient has been using in 2018. She states she has been using a friend's nebulizer past few days with minimal relief of shortness of breath. She reports chronic left lower extremity edema and leg discoloration. Feels more pain to left lower leg and more purple discoloration for past couple of months. History of DVT to that leg many years ago. Patient denies any recent injury or trauma. Patient reports has been sedentary secondary to exertional shortness of breath. Chronic orthopnea, uses 2 pillows. Unsure if worsening. Also reports chronic constipation. Does not use any OTC treatments. She reports pain to anus with BM as well as bright red blood noted on toilet paper with BMs. Denies rectal bleeding not associated with BMs. History colonoscopy 2019: Diverticulosis in sigmoid colon, exam otherwise normal. Patient was seen at PCP office today and found to have pulse ox of 84% on room air and was transported to ER via EMS. Patient has not been seen at PCP since 2019 and has not been taking her medications regularly. Denies N/V/D, CHEN, syncope, vision changes, neck pain, palpitations, hemoptysis, sore throat, choking, otalgia, abdominal pain, paresthesias, weakness, extremity weakness, rashes, urinary symptoms. Admission Exam Per Admitting Provider General: no acute distress on 2L oxygen, obese Head: normocephalic, atraumatic Eyes: conjunctiva non-injected, anicteric ENT: normal inspection external ears, nose, mucous membranes moist Neck: supple, trachea midline Lungs: +dyspneic with lying supine, sitting up in no respiratory distress on 2L via NC, +diffuse wheezing throughout, no rales noted CV: RRR, no murmur Abd: protuberant, normal BS, soft, non-tender Rectal: +skin tag, no thrombosed hemorrhoids, no fissure noted, no blood noted Ext: no cyanosis, LLE: +edema, red/purple discoloration lower leg, skin is warm to touch and similar to RLE, +diffuse tenderness to palpation LLE, dorsalis pedis pulses intact, sensation to light touch intact Neuro: A&O x 3, no focal deficits noted, normal affect Skin: warm, dry Principal Diagnosis (1) Acute respiratory failure: (2) COPD exacerbation: Discharge Exam Constitutional: WD/WN, vitals as above, NAD, sitting up in bed, pleasant, conversing easily Respiratory: Bilateral diffuse wheeze heard with prolonged expiration. Cardiovascular: RRR, no murmur, no edema Vessels: no JVD or carotid bruit Chest: normal inspection of chest Abdomen: normal bowel sounds, soft, nontender, no hepatosplenomegaly Musculoskeletal: no cyanosis or clubbing, extremities motor strength 5/5 Skin: no rashes, warm and dry normal turgor Neurologic: PERRL, EOMI, accommodation nl, no face palsy, no dysarthria CN's II- XI intact bilaterally and moves all extremities Psychiatric: A+Ox3, euthymic affect Lymphatic: no cervical or axillary lymphadenopathy : deferred Discharge Data Allergies Allergy/AdvReac Type Severity Reaction Status Date / Time Penicillins Allergy Severe Hives Verified 05/03/20 12:20 adhesive AdvReac Intermediate itching Verified 05/03/20 12:20 morphine AdvReac Intermediate redness, Verified 05/03/20 12:20 hives tramadol AdvReac Intermediate vomiting Verified 05/03/20 12:20 Consultations 06/24/22 14:06 ED Decision to Admit Stat 06/27/22 08:25 Consult Pulmonology Routine Ordered Studies 06/24/22 11:22 US venous doppler LE LT Stat 06/24/22 15:59 CT chest diagnostic wo con Routine Hospital Course (1) Acute respiratory failure: (2) COPD exacerbation: Patient is 56-year-old female with PMH COPD, chronic DVT LLE, RBBB, HTN, chronic hepatitis C presented to ER with c/o increased exertional SOB for past 2-3 months with acute worsening past 2 weeks with productive cough, congestion. Has not been using inhalers outpatient. In ER afebrile, 88% on RA up to 92% on 2L via NC, other vitals stable. No leukocytosis, lactate WNL. Negative COVID-19, influenza, RSV PCR. Patient was admitted to telemetry floor for COPD exacerbation. She was started on IV Solu-Medrol, [id number] duo nebs, budesonide and formoterol nebulizer. She was also given azithromycin 500 mg for 3 days. Pulmonology was consulted for comanagement. Over the course of the hospitalization, patient's breathing and wheezing improved. Two-step oxygen evaluation was done; patient did not require any home oxygen. She was discharged home with prednisone taper. She was started on inhaled corticosteroids/LABA as per recommendation per pulmonology. She was instructed to follow-up with her primary care doctor and obtain pulmonology referral for PFT and long-term management of COPD. Total Time Total Time Spent Total Time Spent (In Minutes): 40 Total Time Includes: Examination of the Patient, Discharge Planning, Medication Reconciliation, Communication With Other Providers and Other Discharge Plan Discharge Items Patient Disposition: Home - Self-Care Reason For Visit: HYPOXIA Discharge Diagnosis: Acute respiratory failure COPD exacerbation Condition on Discharge: Fair Activity: Resume your previous activity Non-emergency contact: Primary Care Provider Call non-emergency contact if: you have any medication questions and your symptoms worsen Follow-up/Referrals: Elliott Santiago MD [Primary Care Provider] - (Date & Time 07/01/2022 12:40 PM Provider Josh Sandoval MD [facility] ) Diet: Regular Addtl Attending Provider Instructions: You were admitted to the hospital with COPD exacerbation. You were restarted on following medications: 1) Inhaler, Advair Diskus twice daily. 2) Tablet Prednisone: 40mg daily for 2 days---> 20mg once daily for 2 days--> 10 mg once daily for 2 days Use rescue inhaler and DuoNeb as needed for shortness of breath. You have primary care appointment on July 01. You will need pulmonology referral for PFT and long-term management for COPD. You will also need outpatient sleep study. Pending Studies at Discharge: No Stand-Alone Forms: My [facility], Smoking Cessation Medications and DC Order Prescriptions: New prednisone 10 mg tablet See Taper PO BID Qty: 14 0RF Taper: Taper, Blank 40 mg DAILY for 2 Days 20 mg DAILY for 2 Days 10 mg DAILY for 2 Days fluticasone propion-salmeterol [Advair Diskus] 250-50 mcg/dose blister with de vice 1 inh inhalation BID Qty: 60 0RF ipratropium-albuterol 0.5 mg-3 mg(2.5 mg base)/3 mL solution for nebulization 3 ml inhalation Q8H PRN (Reason: wheezing) Qty: 90 0RF Continued ipratropium-albuterol 0.5 mg-3 mg(2.5 mg base)/3 mL solution for nebulization 3 ml INHALATION Q4H PRN (Reason: Shortness Of Breath Or Wheezing) pantoprazole 20 mg tablet,delayed release (DR/EC) 20 mg PO DAILY albuterol sulfate 90 mcg/actuation HFA aerosol inhaler 2 puff INHALATION Q4H PRN (Reason: Shortness Of Breath Or Wheezing) buprenorphine-naloxone 8-2 mg tablet, sublingual 1 tab SUBLINGUAL TID Discharge Orders: Discharge Order (Routine); Ordered 06/28/22 Ordered By: Sacha Graves Admission Data Admit Date/Time: 06/24/22 14:19 Attending Provider: Sacha Graves Admit Provider: Christy Avila Primary Care Provider: Elliott Santiago Other Providers: Christy Avila ; Jesus Benson Other Interventions: Discharge Summary Assessment (RN) Last Done: 06/28/22 09:37
[2022-06-28] MEDS ORDERED: predniSONE 20 MG TAB PO SCH (11:00)
[2022-06-29] MEDS ORDERED: predniSONE 20 MG TAB PO SCH (09:00)
== END 2022-06-28 14:20 | disposition home or self-care (01) | DRG 190 ==
LOC: ED 10:52 → SUATTDRO 14:19 → EDINP 14:19 → 2N 15:56

== ENCOUNTER 2022-07-04 04:50 | Inpatient (IN) ==
[2022-07-04] MEDS ORDERED: dexAMETHasone**PF** 10 MG/ML VIAL IV ONE (04:59)
[2022-07-04] MEDS ORDERED: ALBUT/IPRATROP 3MG/0.5MG NEB 3 ML VIAL NEB ONE (04:59)
--- NOTE | 2022-07-04 05:03 | Emergency Department Note ---
Impression & Plan Acute and chronic respiratory failure with hypoxia, COPD with acute exacerbation, Acute febrile illness ED Provider Note Name: KYLAH Chen YOUNG Age: 56 Sex: F Arrives Via: Ambulance Informant: Patient, EMS ED Provider: Andrew Sosa MD Chief Complaint: Shortness of breath Impression: As per impressions above Medical Decision Makin-year-old female with extensive past medical history including severe COPD with previous hospitalizations including 1 week ago. Patient notes initially doing well at home though over the last day rapidly worsening shortness of breath. EMS arrived to find patient with oxygen sats in the 70s. She improved on CPAP by EMS on the way to the ER and on arrival was transitioned to BiPAP. She is significantly more comfortable on BiPAP with a continuous DuoNeb. She is febrile somewhat tachycardiac thus blood cultures were obtained along with a lactate. She was also given empiric cefepime and Doxy for presumed lung source of infection. She was given a small bolus of fluid but without hypotension nor elevated lactate and not feel fluid recess beyond initial bolus was necessary. She is not septic shock at this time. Chest x-ray without any clear evidence of pneumonia. Given the need for BiPAP and her findings the hospitalist was consulted for further management. While patient does have a history of DVT and is not on any anticoagulation in the setting of her exam consistent with COPD exacerbation and a fever likely secondary to whatever infectious etiology is setting off her COPD exacerbation I do not feel that getting a CT PE study is indicated at this time. Also note that patient's EKG does show some worsening of ST depressions compared to previous EKG which I would suspect is secondary to her respiratory event and at this point troponin remained stable without significant chest discomfort. Prior Medical Record and Triage/Nursing Notes reviewed by Me Additional history obtained from chart Differentials:Reactive airway disease, pneumonia, pneumothorax, COPD, CHF, infections, cardiac ischemia, pulmonary embolism, musculoskeletal, gastrointestinal, as well as other pathologies. Vital Signs: reviewed and remarkable for fever and hypoxia Interventions: BiPAP, DuoNeb continuous, Decadron 10 mg IV, cefepime 2 g IV, doxycycline 100 mg IV, Tylenol 1 g IV Labs:Reviewed and remarkable for no significant abnormalities Imagin view chest x-ray no acute infiltrate appreciated EKG:Per My Interpretation: Indication SHOB: Sinus Tach 102 bpm, qtc 477. No Ectopy. No Ischemia. Compared to EKG 06/24/[address] depressions anteriorly Cardiac/Tele Monitoring: Cardiac Monitoring: An Order was placed for continuous cardiac monitoring. The monitor shows a rate of 90 with a normal sinus rhythm. [facility] Plan: Disposition:Hospitalization. Condition: Fair History of Present Illness: 56-year-old female arrives for evaluation of shortness of breath. Patient with a history of COPD/emphysema who had been admitted at this facility last week for COPD exacerbation. Patient arrives with severe worsening over the last 24 to 48 hours. She notes she is about done with her steroid prescription. This evening unable to breathe thus 911 was called. EMS reported and in the 70s and she was put on oxygen. She was switched to CPAP for increased respiratory issues. CPAP did seem to help in route. Patient notes she is having chest tightness and significant difficulty breathing. She does feel better now that she is on the CPAP. She denies any swelling to her arms or legs beyond baseline. States no fevers, falls, trauma. Denies any abdominal pain or back pain. No medications prior to arrival. Gets better with CPAP, worse with any exertion. ROS: See above HPI for pertinent positives & negatives. A total of 10 systems reviewed and were otherwise negative. Past Medical History:See Below Past Surgical History:See Below Family History:See Below Social History:See Below Home Medications:See Below Allergies:See Below Vitals:Blood Pressure: 111/72, Pulse 98, RR 26, T 38.2C, O2 99% on BIPAP Physical Exam: GENERAL: Patient is severely unwell appearing and in moderate distress. CPAP on patient. EYES: No scleral icterus, unremarkable pupils. ENT: Mucous membranes moist, no nasal congestion. NECK: No masses appreciated, nomeningismus, trachea is midline. RESPIRATORY: Diffuse tight lung sounds with expiratory wheezing CARDIOVASCULAR: Regular rate and rhythm.No murmurs, rubs, gallops appreciated. GASTROINTESTINAL: Abdomen soft, non-tender, no peritonitis.Bowel sounds positive.No masses appreciated. BACK: No midline tenderness, no CVA tenderness EXTREMITIES: Normal motion all extremities, no cyanosis, no edema. NEUROLOGIC: Alert and oriented, no acute motor or sensory deficits, no focal weakness, cranial nerves grossly intact. SKIN: No rash, no jaundice, no diaphoresis. PSYCH: Appropriate GCS: 15 ED Course: Times/Reassessments: Patient much improved on BiPAP breathing comfortably and agreeable to hospitalization. Critical Care: I have personally spent 35 minutes of critical care time in the direct management of this patient. Acute exacerbation of COPD with hypoxia in the setting of febrile illness requiring BiPAP.. This was a life/limb threatening event. This 35 minutes is in excess of all separately billable procedures. Andrew Sosa MD Past Med/Surg History Medical History Asthma inhalers and nebulizer prn Biliary colic Bronchospasm Chronic back pain on suboxone Chronic hepatitis Treated with Mavyret, 8 week course. Finished in 05/2019 Closed head injury pt states "a long time ago" COPD (chronic obstructive pulmonary disease) Depression Emphysema lung History of drug abuse History of DVT (deep vein thrombosis) hx of in left leg HTN (hypertension) Migraine Morbid obesity with BMI of 40.0-44.9, adult Obesity, morbid, BMI 40.0-49.9 Personal history of stroke with residual effects 12/2016--left side pain--no neurologist RBBB Reactive lymphoid hyperplasia (RLH) of head, face and neck Tobacco use Surgical History History of bilateral tubal ligation History of section x3 History of colonoscopy History of herniorrhaphy History of tooth extraction all teeth removed Hx of bilateral breast reduction surgery Family History Aunt Family history of diabetes mellitus Mother Family history of diabetes mellitus Other Cancer Diabetes Heart disease Hypertension Liver transplant recipient No family history of adverse response to anesthesia Social History Smoking Status: Former smoker Tobacco Type: Cigarettes Cigarettes Per Day: 0.5; Second Hand Exposure: Yes (father smoked); Hx Alcohol Use: No Hx Substance Use: Yes (pt states currently on suboxone) Preferred Language: Mosotho Communication Ability: Impaired Police Aide Required: Yes and No Beliefs That Will Affect Care: None marital status: in relationship Current Living Situation: Other Current Living Situation Comment: patient states she lives with "her old man" Feels Safe at Home: Yes Assistive Devices: Glasses Allergies Allergies Allergy/AdvReac Type Severity Reaction Status Date / Time Penicillins Allergy Severe Hives Verified 10/16/20 12:20 adhesive AdvReac Intermediate itching Verified 05/03/20 12:20 morphine AdvReac Intermediate redness, Verified 05/03/20 12:20 hives tramadol AdvReac Intermediate vomiting Verified 05/03/20 12:20 Home Meds Home Medications Medication Instructions Recorded Confirmed albuterol sulfate 90 mcg/actuation 2 puff inhalation Q4H PRN 06/24/22 06/24/22 aerosol inhaler Shortness Of Breath Or Wheezing buprenorphine 8 mg-naloxone 2 mg 1 tab sublingual TID 06/24/22 06/24/22 sublingual tablet ipratropium 0.5 mg-albuterol 3 mg 3 ml inhalation Q4H PRN Shortness 06/24/22 06/24/22 (2.5 mg base)/3 mL nebulization Of Breath Or Wheezing soln pantoprazole 20 mg tablet,delayed 20 mg PO DAILY 06/24/22 06/24/22 release Previous Rx's Medication Instructions Recorded fluticasone 250 mcg-salmeterol 50 1 inh inhalation BID #60 ea 06/28/22 mcg/dose blistr powdr for inhalation (Advair Diskus) ipratropium 0.5 mg-albuterol 3 mg 3 ml inhalation Q8H PRN wheezing 06/28/22 (2.5 mg base)/3 mL nebulization #90 mL soln prednisone 10 mg tablet See Taper PO BID #14 tabs 06/28/22 Results & Data (ED) Vital Signs Vital Signs - 24 hr 07/04/22 05:04 07/04/22 05:04 07/04/22 05:26 Temperature 38.2 C H Temperature Source Oral Pulse Rate 102 H Pulse Rate [Finger] 99 H Respiratory Rate 38 H 26 H Respiratory Effort / Characteristics Accessory Muscle Use Labored Short of Breath Labored Short of Breath Non-Labored Spontaneous Respiratory Depth Deep Respiratory Pattern Blood Pressure 151/91 H Blood Pressure [Right Arm] Blood Pressure Mean 111 Blood Pressure Mean [Right Arm] Blood Pressure Position Sitting Blood Pressure Position [Right Arm] Pulse Oximetry 98 99 Oxygen Delivery Method BiPAP BiPAP BiPAP Fraction of Inspired Oxygen 50 50 40 SaO2/FiO2 Ratio 196 Sepsis Recent Fever Within 48 Hours No Sepsis New/Unexplained Change in Mental Status N/A Sepsis Action Taken by Nursing Physician Notified 07/04/22 05:05 07/04/22 05:55 Temperature Temperature Source Pulse Rate 99 H Pulse Rate [Finger] 98 H Respiratory Rate 28 H 26 H Respiratory Effort / Characteristics Spontaneous Short of Breath Respiratory Depth Normal Respiratory Pattern Regular Blood Pressure Blood Pressure [Right Arm] 111/72 Blood Pressure Mean Blood Pressure Mean [Right Arm] 85 Blood Pressure Position Blood Pressure Position [Right Arm] Sitting Pulse Oximetry 98 99 Oxygen Delivery Method BiPAP Fraction of Inspired Oxygen 30 40 SaO2/FiO2 Ratio 247 Sepsis Recent Fever Within 48 Hours Sepsis New/Unexplained Change in Mental Status Sepsis Action Taken by Nursing Laboratory Data Result diagrams: 07/04/22 05:08 07/04/22 05:08 Lab Results 07/04/22 07/04/22 07/04/22 Range/Units 05:08 05:08 05:08 WBC 10.91 H (4.8-10.8) K/ul RBC 4.33 (3.93-5.22) M/uL Hgb 14.0 (12.0-16.0) g/dl Hct 43.2 (34.1-44.9) % MCV 99.8 (80.0-100.0) fL MCH 32.3 (25.0-34.0) pg MCHC 32.4 (32.0-36.0) g/dL RDW Std Deviation 49.2 H (36.4-46.3) fL RDW Coeff of Sharon 13.4 (11.5-14.5) % Plt Count 125 L (130-400) K/uL MPV 12.2 (9.4-12.3) fL Immature Gran % (Auto) 0.5 % Neut % (Auto) 85.7 % Lymph % (Auto) 6.3 % [place] % (Auto) 6.5 % Eos % (Auto) 0.9 % Baso % (Auto) 0.1 % Neut # (Auto) 9.34 H (1.4-6.5) K/uL Lymph # (Auto) 0.69 L (1.2-3.4) K/uL [place] # (Auto) 0.71 (0.24-0.82) K/uL Eos # (Auto) 0.10 (0-0.50) K/uL Baso # (Auto) 0.01 (0-0.2) K/uL Immature Gran # (Auto) 0.06 H (0.00-0.02) K/uL VBG pH (7.36-7.41) VBG pCO2 (38-50) mmHg VBG pO2 mmHg VBG HCO3 mmol/L VBG O2 Saturation % VBG Base Excess mEq/L Sodium 134 L (136-145) mmol/L Potassium 4.1 (3.5-5.1) mmol/L Chloride 97 L (98-107) mmol/L Carbon Dioxide 33 H (21-32) mmol/L Anion Gap 4 (3-11) BUN 15 (6-23) mg/dl Creatinine 0.59 L (0.6-1.2) mg/dl Est Cr Clr Drug Dosing 130.8 ml/min Est GFR ( Amer) 120.4 ml/min Est GFR (Non-Af Amer) 103.9 ml/min BUN/Creatinine Ratio 25.4 H (10-20) Glucose 102 H (70-99(Fasting)) mg/dl Lactate (0.4-2.0) mmol/L Calcium 8.0 L (8.5-10.1) mg/dl Magnesium 1.6 L (1.7-2.4) mg/dl Total Bilirubin 0.6 (0.2-1.0) mg/dl Direct Bilirubin 0.2 (0-0.2) mg/dl AST 13 (13-39) U/L ALT 12 (7-52) U/L Alkaline Phosphatase 75 (34-104) U/L Troponin I High Sens 10.5 (0-14) pg/ml Total Protein 6.2 (6.0-8.3) gm/dl Albumin 3.5 (3.4-5.0) gm/dl Procalcitonin < 0.05 (0-0.5) ng/ml 07/04/22 07/04/22 Range/Units 05:08 05:23 WBC (4.8-10.8) K/ul RBC (3.93-5.22) M/uL Hgb (12.0-16.0) g/dl Hct (34.1-44.9) % MCV (80.0-100.0) fL MCH (25.0-34.0) pg MCHC (32.0-36.0) g/dL RDW Std Deviation (36.4-46.3) fL RDW Coeff of Sharon (11.5-14.5) % Plt Count (130-400) K/uL MPV (9.4-12.3) fL Immature Gran % (Auto) % Neut % (Auto) % Lymph % (Auto) % [place] % (Auto) % Eos % (Auto) % Baso % (Auto) % Neut # (Auto) (1.4-6.5) K/uL Lymph # (Auto) (1.2-3.4) K/uL [place] # (Auto) (0.24-0.82) K/uL Eos # (Auto) (0-0.50) K/uL Baso # (Auto) (0-0.2) K/uL Immature Gran # (Auto) (0.00-0.02) K/uL VBG pH 7.42 H (7.36-7.41) VBG pCO2 55 H (38-50) mmHg VBG pO2 84 mmHg VBG HCO3 36 mmol/L VBG O2 Saturation 98.2 % VBG Base Excess 9.3 mEq/L Sodium (136-145) mmol/L Potassium (3.5-5.1) mmol/L Chloride (98-107) mmol/L Carbon Dioxide (21-32) mmol/L Anion Gap (3-11) BUN (6-23) mg/dl Creatinine (0.6-1.2) mg/dl Est Cr Clr Drug Dosing ml/min Est GFR ( Amer) ml/min Est GFR (Non-Af Amer) ml/min BUN/Creatinine Ratio (10-20) Glucose (70-99(Fasting)) mg/dl Lactate 0.5 (0.4-2.0) mmol/L Calcium (8.5-10.1) mg/dl Magnesium (1.7-2.4) mg/dl Total Bilirubin (0.2-1.0) mg/dl Direct Bilirubin (0-0.2) mg/dl AST (13-39) U/L ALT (7-52) U/L Alkaline Phosphatase (34-104) U/L Troponin I High Sens (0-14) pg/ml Total Protein (6.0-8.3) gm/dl Albumin (3.4-5.0) gm/dl Procalcitonin (0-0.5) ng/ml Administered Medications Doxycycline Hyclate 100 mg/ (Dextrose) 110 mls @ 50 mls/hr IV NOW STA Stop: 07/04/22 08:02 Last Admin: 07/04/22 06:42 Dose: 50 mls/hr Documented By: CONSTANTIN Magnesium Sulfate/Dextrose (Magnesium Sulfate / D5w) 1 gm in 100 mls @ 50 mls/hr IV Q2H BOB Stop: 07/04/22 10:14 Last Admin: 07/04/22 06:42 Dose: 50 mls/hr Documented By: CONSTANTIN Discontinued Medications Acetaminophen (Acetaminophen 1000 Mg/100 Ml Iv) Confirm Administered Dose 1,000 mg IV .STK-MED ONE Stop: 07/04/22 06:14 Last Admin: 07/04/22 06:14 Dose: Not Given Documented By: CONSTANTIN Albuterol (Albut/Ipratrop 3mg/0.5mg Neb 3 Ml Vial) 12 ml NEB ONE ONE; Protocol Stop: 07/04/22 05:00 Last Admin: 07/04/22 05:26 Dose: 12 ml Documented By: KERRY Dexamethasone Sodium Phosphate (DexamethasonePf 10 Mg/Ml Vial) 10 mg IV NOW ONE Stop: 07/04/22 05:00 Last Admin: 07/04/22 05:21 Dose: 10 mg Documented By: CONSTANTIN Sodium Chloride (Nss) 500 mls @ 999 mls/hr IV .Q31M ONE Stop: 07/04/22 05:48 Last Infusion: 07/04/22 05:52 Dose: 0 mls/hr Documented By: Admin: 07/04/22 05:21 Dose: 999 mls/hr Documented By: CONSTANTIN Cefepime HCl (Maxipime) 2,000 mg in 20 mls @ 5 mls/min IV NOW STA; Protocol Stop: 07/04/22 05:54 Last Admin: 07/04/22 05:59 Dose: 5 mls/min Documented By: CONSTANTIN Acetaminophen (Ofirmev) 1,000 mg in 100 mls @ 400 mls/hr IV NOW STA Stop: 07/04/22 06:22 Last Infusion: 07/04/22 06:39 Dose: 0 mls/hr Documented By: Admin: 07/04/22 06:24 Dose: 400 mls/hr Documented By: CONSTANTIN Discharge Plan Visit Data Chief Complaint: Respiratory Distress ED Provider: Andrew Sosa Discharge Problem: Acute and chronic respiratory failure with hypoxia, COPD with acute exacerbation, Acute febrile illness Forms Stand Alone Forms: My [facility] Prescriptions Prescriptions: No Action ipratropium-albuterol 0.5 mg-3 mg(2.5 mg base)/3 mL solution for nebulization 3 ml INHALATION Q4H PRN (Reason: Shortness Of Breath Or Wheezing) pantoprazole 20 mg tablet,delayed release (DR/EC) 20 mg PO DAILY albuterol sulfate 90 mcg/actuation HFA aerosol inhaler 2 puff INHALATION Q4H PRN (Reason: Shortness Of Breath Or Wheezing) buprenorphine-naloxone 8-2 mg tablet, sublingual 1 tab SUBLINGUAL TID prednisone 10 mg tablet See Taper PO BID Qty: 14 0RF Taper: Taper, Blank 40 mg DAILY for 2 Days 20 mg DAILY for 2 Days 10 mg DAILY for 2 Days fluticasone propion-salmeterol [Advair Diskus] 250-50 mcg/dose blister with device 1 inh inhalation BID Qty: 60 0RF ipratropium-albuterol 0.5 mg-3 mg(2.5 mg base)/3 mL solution for nebulization 3 ml inhalation Q8H PRN (Reason: wheezing) Qty: 90 0RF Referrals Referrals: Elliott Santiago MD [Primary Care Provider] -
[2022-07-04] MEDS ORDERED: ALBUTEROL 0.083% NEBU SOLN 3 ML VIAL ONE (05:04)
[2022-07-04] MEDS ORDERED: ALBUT/IPRATROP 3MG/0.5MG NEB 3 ML VIAL ONE (05:04)
[2022-07-04] MEDS ORDERED: SODIUM CHLORIDE 0.9% 500 ML IV ONE (05:18)
[2022-07-04 05:22] LABS: Basophils # (auto) 0.01 K/uL (0-0.2); Basophils % (auto) 0.1 %; Eosinophils % (auto) 0.9 %; Hematocrit (blood only) 43.2 % (34.1-44.9); Immature Granulocytes # (auto) 0.06 K/uL (0.00-0.02); Immature Granulocytes % (auto) 0.5 %; Lymphocytes # (auto) 0.69 K/uL (1.2-3.4); Lymphocytes % (auto) 6.3 %; Mean Corpuscular Hemoglobin 32.3 pg (25.0-34.0); Mean Corpuscular Hgb Conc 32.4 g/dL (32.0-36.0); Mean Corpuscular Volume 99.8 fL (80.0-100.0); Mean Platelet Volume 12.2 fL (9.4-12.3); Monocytes # (auto) 0.71 K/uL (0.24-0.82); Monocytes % (auto) 6.5 %; Neutrophils # (auto) 9.34 K/uL (1.4-6.5); Neutrophils % (auto) 85.7 %; Platelet Count 125 K/uL (130-400); RDW Coefficient of Variation 13.4 % (11.5-14.5); RDW Standard Deviation 49.2 fL (36.4-46.3); Red Blood Count 4.33 M/uL (3.93-5.22); White Blood Count 10.91 K/ul (4.8-10.8)
[2022-07-04 05:24] LABS: Base Excess VBG 9.3 mEq/L; HCO3 VBG 36 mmol/L; Oxygen Saturation VBG 98.2 %; PCO2 VBG 55 mmHg (38-50); PO2 VBG 84 mmHg; pH VBG 7.42 (7.36-7.41)
[2022-07-04] MEDS ORDERED: DOXYCYCLINE HYCLATE 100 MG in DEXTROSE 5% 100 ML IV STA (05:51)
[2022-07-04] MEDS ORDERED: CEFEPIME 2,000 MG/20 ML VIAL IV STA (05:51)
[2022-07-04 05:54] LABS: Troponin I High Sensitivity 10.5 pg/ml (0-14)
[2022-07-04 05:55] LABS: Albumin Level 3.5 gm/dl (3.4-5.0); BUN Creatinine Ratio 25.4 (10-20); Bilirubin Direct 0.2 mg/dl (0-0.2); Bilirubin,Total 0.6 mg/dl (0.2-1.0); Creatinine Clr Calc Pharmacy 130.8 ml/min; Est GFR (African American) 120.4 ml/min; Est GFR (Non-African American) 103.9 ml/min; Magnesium 1.6 mg/dl (1.7-2.4); Potassium 4.1 mmol/L (3.5-5.1); Total Protein 6.2 gm/dl (6.0-8.3)
[2022-07-04 05:59] LABS: Influenza B virus by PCR Negative (Neg); RSV by PCR Negative (Neg); SARS CoV2 RNA(COVID-19) Ceph NEGATIVE (Negative)
[2022-07-04] MEDS ORDERED: ACETAMINOPHEN 1,000 MG/100 ML VIAL IV STA (06:08)
[2022-07-04] MEDS ORDERED: ACETAMINOPHEN 1000 MG/100 ML IV IV ONE (06:13)
[2022-07-04] MEDS: MAGNESIUM SULFATE / D5W 1 GM/100 ML BAG IV SCH ×2 (06:42→09:56)
[2022-07-04 06:44] LABS: Influenza A virus by PCR Positive (Neg)
[2022-07-04] MEDS ORDERED: CLINDAMYCIN/D5W 600 MG/50 ML BAG IV STA (06:48)
--- NOTE | 2022-07-04 07:01 | History & Physical Report ---
Date of Service July 04, 2022 Assessment & Plan (1) Acute and chronic respiratory failure with hypoxia: Plan: Multifactorial : Protracted COPD exacerbation, influenza positive patient, possible aspiration pneumonitis, possible sepsis Possible CHF given fluid retention symptoms, possible underlying pulmonary hypertension, possible undiagnosed ERMA Rule out PE given pleuritic chest pain complaints Leg swelling possibly from CHF rule out recurrent DVT L GIB rule out C. difficile colitis/diverticulitis New onset thrombocytopenia secondary to illness HCV status post Rx chronic pain on Suboxone past history DVT status post Coumadin (related to as per patient) Steroid-induced hyperglycemia rule out DM ongoing tobacco abuse PCU Wean off BiPAP Steroids, nebs RTC CS, Clindamycin Tamiflu Swallow eval, aspiration precautions CT chest PE study Pulmonary consult Re: Respiratory failure, protracted COPD exacerbation Lasix IV 1 dose Check TTE Re: Possible CHF LE venous Dopplers rule out DVT Outpatient sleep study CT abdomen pelvis Re: Lower abdominal pain with GI bleed Stool C. difficile Follow H&H, transfuse PRBC if hemoglobin less than 7 and or for symptomatic anemia Further management pending work-up results Check hemoglobin A1c Nicotine patch DVT prophylaxis. SCDs if no acute DVT on LE venous Dopplers RE GI bleed Full code Total critical care time was 45 minutes. Text document was generated using [employer] voice recognition software. It may contain grammatical or spelling errors. Kindly contact undersigned for clarification of any documentation item in question. History of Present Illness Chief Complaint: Worsening shortness of breath Primary Care Provider: Dr. Kathryn Euceda History obtained from patien and records. Medical history significant for COPD, morbid obesity possible ERMA, HCV status post Rx, chronic pain on Suboxone, past history DVT status post thrombectomy status post Coumadin, diverticulosis, ongoing tobacco abuse. Recent confinement last week for respiratory failure secondary to COPD exacerbation. Patient discharged on redness on taper and started on inhaled corticosteroids/LABA as per Pulmonology recommendations. Patient still was not feeling well at time of discharge but she wanted to go home. Patient Pulmonology and Sleep medicine referrals given possible symptoms of ERMA, daytime sleepiness contemplated following PCP visit 3 days ago. Worsening shortness of breath symptoms the last few days. Pleuritic chest pain associated with junky cough productive of yellow sputum. Patient admits to occasional choking and gagging symptoms with food/water intake. Patient not sure about COVID-19 contacts given recent confinement and PCP visit. Patient has not received COVID-19 vaccination. Fluid retention with abdominal distention, possible weight gain, leg swelling left greater than the right. Achy lower abdominal pain with bloody stools nondiarrheal yesterday morning as per patient. EMS called to patient's home. O2 sats noted to be 70s upon EMS arrival. BiPAP initiated upon arrival at the ER. Cefepime, doxycycline, Decadron and neb treatment administered at the ER. Medical History as above 2020 colonoscopy showed diverticulosis Surgical History : section, dental surgery, thrombectomy, hernia repair, BTL, breast reduction Family History : Breast cancer Personal/Social history : 1 pack daily, no EtOH intake, disabled Allergies Allergy/AdvReac Type Severity Reaction Status Date / Time Penicillins Allergy Severe Hives Verified 05/03/20 12:20 adhesive AdvReac Intermediate itching Verified 05/03/20 12:20 morphine AdvReac Intermediate redness, Verified 05/03/20 12:20 hives tramadol AdvReac Intermediate vomiting Verified 05/03/20 12:20 Home Medications Medication Instructions Recorded Confirmed Type albuterol sulfate 90 mcg/actuation 2 puff inhalation Q4H PRN 06/24/22 06/24/22 History aerosol inhaler Shortness Of Breath Or Wheezing buprenorphine 8 mg-naloxone 2 mg 1 tab sublingual TID 06/24/22 06/24/22 History sublingual tablet ipratropium 0.5 mg-albuterol 3 mg 3 ml inhalation Q4H PRN Shortness 06/24/22 06/24/22 History (2.5 mg base)/3 mL nebulization Of Breath Or Wheezing soln pantoprazole 20 mg tablet,delayed 20 mg PO DAILY 06/24/22 06/24/22 History release prednisone 10 mg tablet See Taper PO BID #14 tabs 06/28/22 Rx Flonase 50 mcg NA HS 07/04/22 07/04/22 History Mucinex 600 mg PO BID 07/04/22 07/04/22 History fluticasone 250 mcg-salmeterol 50 2 inh inhalation BID 07/04/22 07/04/22 History mcg/dose blistr powdr for inhalation nicotine 14 mg/24 hr daily 14 mg transdermal DAILY 07/04/22 07/04/22 History transdermal patch Past Med/Surg History Medical History Asthma inhalers and nebulizer prn Biliary colic Bronchospasm Chronic back pain on suboxone Chronic hepatitis Treated with Mavyret, 8 week course. Finished in 05/2019 Closed head injury pt states "a long time ago" COPD (chronic obstructive pulmonary disease) Depression Emphysema lung History of drug abuse History of DVT (deep vein thrombosis) hx of in left leg HTN (hypertension) Migraine Morbid obesity with BMI of 40.0-44.9, adult Obesity, morbid, BMI 40.0-49.9 Personal history of stroke with residual effects 12/2016--left side pain--no neurologist RBBB Reactive lymphoid hyperplasia (RLH) of head, face and neck Tobacco use Surgical History History of bilateral tubal ligation History of section x3 History of colonoscopy History of herniorrhaphy History of tooth extraction all teeth removed Hx of bilateral breast reduction surgery Family History Aunt Family history of diabetes mellitus Mother Family history of diabetes mellitus Other Cancer Diabetes Heart disease Hypertension Liver transplant recipient No family history of adverse response to anesthesia Social History Smoking Status: Former smoker Tobacco Type: Cigarettes Cigarettes Per Day: 0.5; Second Hand Exposure: Yes (father smoked); Hx Alcohol Use: No Hx Substance Use: Yes (pt states currently on suboxone) Preferred Language: Mosotho Communication Ability: Impaired Well Flow Operator Required: Yes and No Beliefs That Will Affect Care: None marital status: in relationship Current Living Situation: Other Current Living Situation Comment: patient states she lives with "her old man" Feels Safe at Home: Yes Assistive Devices: Glasses Review of Systems Review of Systems: As per HPI, all other systems reviewed and negative Physical Exam Physical Exam: GENERAL: Comfortable, morbidly obese, respiratory distress SKIN: Normal color, warm HEENT: Hecker palpebral conjunctivae, no ptosis, dry buccal mucosa, BiPAP in place NECK : Supple, short neck, no tenderness CHEST : Decreased breath sounds, expiratory wheezes, no tenderness HEART : RRR, no obvious murmurs ABDOMEN: Some distention, minimal hypogastric tenderness EXTREMITIES : Bilateral LE swelling, left greater than the right, no overt tenderness, no other conspicuous deformities noted NEUROLOGIC : Coherent, no facial asymmetry, no other gross focality Results & Data Results & Data ([facility]) Vital Signs (Past 12 Hours) Vital Signs Temp Pulse Pulse Resp BP BP Pulse Ox 07/04/22 05:55 98 H 26 H 111/72 99 07/04/22 05:05 99 H 28 H 98 07/04/22 05:26 99 H 26 H 99 07/04/22 05:04 38.2 C H 102 H 38 H 151/91 H 98 07/04/22 05:04 O2 Del Method FiO2 07/04/22 05:55 BiPAP 40 07/04/22 05:05 30 07/04/22 05:26 BiPAP 40 07/04/22 05:04 BiPAP 50 07/04/22 05:04 BiPAP 50 Laboratory Results Laboratory Results WBC 10.91 K/ul (4.8-10.8) H 07/04/22 05:08 RBC 4.33 M/uL (3.93-5.22) 07/04/22 05:08 Hgb 14.0 g/dl (12.0-16.0) 07/04/22 05:08 Hct 43.2 % (34.1-44.9) 07/04/22 05:08 MCV 99.8 fL (80.0-100.0) 07/04/22 05:08 MCH 32.3 pg (25.0-34.0) 07/04/22 05:08 MCHC 32.4 g/dL (32.0-36.0) 07/04/22 05:08 RDW Std Deviation 49.2 fL (36.4-46.3) H 07/04/22 05:08 RDW Coeff of Sharon 13.4 % (11.5-14.5) 07/04/22 05:08 Plt Count 125 K/uL (130-400) L 07/04/22 05:08 MPV 12.2 fL (9.4-12.3) 07/04/22 05:08 Immature Gran % (Auto) 0.5 % 07/04/22 05:08 Neut % (Auto) 85.7 % 07/04/22 05:08 Lymph % (Auto) 6.3 % 07/04/22 05:08 Lyon % (Auto) 6.5 % 07/04/22 05:08 Eos % (Auto) 0.9 % 07/04/22 05:08 Baso % (Auto) 0.1 % 07/04/22 05:08 Neut # (Auto) 9.34 K/uL (1.4-6.5) H 07/04/22 05:08 Lymph # (Auto) 0.69 K/uL (1.2-3.4) L 07/04/22 05:08 Lyon # (Auto) 0.71 K/uL (0.24-0.82) 07/04/22 05:08 Eos # (Auto) 0.10 K/uL (0-0.50) 07/04/22 05:08 Baso # (Auto) 0.01 K/uL (0-0.2) 07/04/22 05:08 Immature Gran # (Auto) 0.06 K/uL (0.00-0.02) H 07/04/22 05:08 VBG pH 7.42 (7.36-7.41) H 07/04/22 05:08 VBG pCO2 55 mmHg (38-50) H 07/04/22 05:08 VBG pO2 84 mmHg 07/04/22 05:08 VBG HCO3 36 mmol/L 07/04/22 05:08 VBG O2 Saturation 98.2 % 07/04/22 05:08 VBG Base Excess 9.3 mEq/L 07/04/22 05:08 Sodium 134 mmol/L (136-145) L 07/04/22 05:08 Potassium 4.1 mmol/L (3.5-5.1) 07/04/22 05:08 Chloride 97 mmol/L (98-107) L 07/04/22 05:08 Carbon Dioxide 33 mmol/L (21-32) H 07/04/22 05:08 Anion Gap 4 (3-11) 07/04/22 05:08 BUN 15 mg/dl (6-23) 07/04/22 05:08 Creatinine 0.59 mg/dl (0.6-1.2) L 07/04/22 05:08 Est Cr Clr Drug Dosing 130.8 ml/min 07/04/22 05:08 Est GFR ( Amer) 120.4 ml/min 07/04/22 05:08 Est GFR (Non-Af Amer) 103.9 ml/min 07/04/22 05:08 BUN/Creatinine Ratio 25.4 (10-20) H 07/04/22 05:08 Glucose 102 mg/dl (70-99(Fasting)) H 07/04/22 05:08 Lactate 0.5 mmol/L (0.4-2.0) 07/04/22 05:23 Calcium 8.0 mg/dl (8.5-10.1) L 07/04/22 05:08 Magnesium 1.6 mg/dl (1.7-2.4) L 07/04/22 05:08 Total Bilirubin 0.6 mg/dl (0.2-1.0) 07/04/22 05:08 Direct Bilirubin 0.2 mg/dl (0-0.2) 07/04/22 05:08 AST 13 U/L (13-39) 07/04/22 05:08 ALT 12 U/L (7-52) 07/04/22 05:08 Alkaline Phosphatase 75 U/L (34-104) 07/04/22 05:08 Troponin I High Sens 10.5 pg/ml (0-14) 07/04/22 05:08 Total Protein 6.2 gm/dl (6.0-8.3) 07/04/22 05:08 Albumin 3.5 gm/dl (3.4-5.0) 07/04/22 05:08 Procalcitonin < 0.05 ng/ml (0-0.5) 07/04/22 05:08 SARS-CoV-2 (PCR) NEGATIVE (Negative) 07/04/22 05:08 Influenza Type A (PCR) Positive (Neg) A* 07/04/22 05:08 Influenza Type B (PCR) Negative (Neg) 07/04/22 05:08 RSV (RT-PCR) Negative (Neg) 07/04/22 05:08 Diagnostic Findings Chest x-ray as per my interpretation atelectasis, interstitial congestion EKG as per my interpretation : Rate 105, sinus tachycardia, normal axis, RBBB, T wave abnormalities inferior leads Code Status & VTE Plan VTE Prophylaxis Plan VTE Prophylaxis will be ordered: Yes
--- NOTE | 2022-07-04 07:05 | XRay Report ---
SINGLE VIEW CHEST CLINICAL HISTORY: Dyspnea. FINDINGS: An AP, portable, upright chest radiograph is compared to chest x-ray and chest CT dated 06/24/2022. The examination is degraded by portable technique and apical lordotic positioning. The heart is enlarged. The pulmonary vasculature is not congested. Emphysema and chronic interstitial thickenin g is similar to previous. Scarring/atelectasis is noted at the lung bases. No airspace consolidation or large pleural effusion is identified. No pneumothorax is seen. The skeletal structures are osteope gladys. The bony thorax is grossly intact. IMPRESSION: Cardiomegaly and emphysema with no acute cardiopulmonary abnormality identified. ACT 112: Negative or not required by law. Electronically signed by: Griffin Velasquez M.D. 07/04/2022 7:03 AM
[2022-07-04] MEDS ORDERED: FUROSEMIDE INJ 20 MG/2 ML VIAL IV STA (07:06)
[2022-07-04] MEDS ORDERED: OSELTAMIVIR PHOSPHATE 75 MG CAP PO STA (07:08)
[2022-07-04] MEDS ORDERED: NICOTINE 21 MG/24 HR TDSY TD STA (07:09)
[2022-07-04] MEDS ORDERED: FUROSEMIDE INJ 20 MG/2 ML VIAL IV ONE (08:28)
[2022-07-04] MEDS ORDERED: NICOTINE 21 MG/24 HR TDSY TD ONE (08:28)
[2022-07-04] MEDS ORDERED: OPTIRAY 320 500ml IV ONE (08:53)
--- NOTE | 2022-07-04 09:21 | CT Scan Report ---
CT ANGIOGRAM OF THE CHEST; CT SCAN OF THE ABDOMEN AND PELVIS WITH IV CONTRAST CLINICAL HISTORY: Atypical chest pain. Generalized abdominal pain. GI bleeding. COMPARISON STUDY: Chest CT dated 06/24/2022. Abdominal CT dated 05/22/2015. TECHNIQUE: Following the IV administration of 116 of Optiray 320, CT angiogram of the chest is perfor med from the upper abdomen to the thoracic inlet utilizing the pulmonary embolus protocol. Images are reviewed in the axial, sagittal, coronal planes. 3-D MIPS images are created and assessed. Subsequen tly, CT scan of the abdomen and pelvis was performed from the lung bases to the proximal femora. Imag es are reviewed in the axial, sagittal, and coronal planes. IV contrast was administered without comp lication. A dose lowering technique was utilized adhering to the principles of ALARA. The examination s are degraded by large body habitus, and by streak artifact from the body wall abutting the CT gantr y. There is also significant motion artifact on the chest CT. CT DOSE: 2676.07 mGy.cm FINDINGS: CHEST: Thyroid: Imaged portions of the thyroid gland are normal in size and attenuation. Thoracic aorta: The thoracic aorta is normal in caliber and demonstrates standard 3-vessel arch anato my. No dissection is seen. Pulmonary vasculature: The pulmonary trunk is normal in caliber. There are no filling defects identif ied in the main, lobar, or proximal segmental pulmonary arteries to indicate pulmonary embolus. Evalu ation of the segmental and subsegmental branches is degraded by motion artifact. Heart: The heart is normal in size and without pericardial effusion. There are scattered coronary art jean marie calcifications. Lungs and pleural spaces: Evaluation of the lung parenchyma is significantly degraded by motion artif act. Mild emphysematous change is noted. Mild patchy airspace consolidation is seen throughout both l ungs. This is new from 06/24/2022 and typical for an infectious/inflammatory pneumonitis. No pleural e ffusion is identified. The trachea and central airways are clear. Diffuse peribronchial thickening is observed. Mediastinum: There is no mediastinal lymphadenopathy. Thelma: Mildly enlarged hilar nodes measure up to 11 mm in short axis. Axillae: There is no axillary lymphadenopathy. Bony thorax: The skeletal structures are osteopenic. Mild degenerative change is seen throughout the thoracic spine. No lytic or blastic lesions are identified. ABDOMEN AND PELVIS: Liver: The contrast-enhanced liver is top normal in size, measuring 18 cm in length. The liver demons trates diffusely diminished attenuation indicating steatosis. There is no intrahepatic biliary ductal dilatation. The hepatic veins and portal veins are patent. Gallbladder: Unremarkable. Spleen: Normal in size and attenuation. Pancreas: The pancreas is moderately atrophic and grossly unremarkable. Adrenal glands: Unremarkable. Kidneys: The contrast enhanced kidneys demonstrate mild cortical atrophy and are without hydronephros is. The kidneys enhance symmetrically. A 9 cm simple cyst arises from the lower pole of the left kidn ey. A retroaortic left renal vein is incidentally noted. Abdominal vasculature: The abdominal aorta is normal in course and caliber noting moderate atheroscle rotic calcification. Bowel: There is [id number] colonic diverticulosis without CT evidence of acute diverticulitis. No bowel obstruction is seen. Moderate fecal retention is noted throughout the colon. The appendix is well-visualized and normal. Peritoneum: There is no intraperitoneal free air or abdominal ascites. There is a fat-containing umbi lical hernia. Lymphadenopathy: None. Pelvic viscera: The bladder, uterus, and adnexa are normal as visualized. Skeletal structures: The skeletal structures are osteopenic. There is mild lumbosacral spondylosis. N o lytic or blastic lesions are seen. Soft tissues: Induration is seen throughout the abdominal/pelvic pannus with mild interval thickening . No organized/drainable fluid collection is seen to suggest abscess. IMPRESSION: 1. Streak and motion degraded examination is. 2. There is no evidence of central pulmonary embolus in the main, lobar, or proximal segmental pulmon vida arteries. The segmental and subsegmental branches are not well assessed due to motion artifact. 3. There is diffuse bronchial thickening with mild patchy airspace consolidation throughout both lung s. This is new from 06/24/2022 and is typical for an infectious/inflammatory pneumonitis. Clinical cor relation will be required. 4. No pleural effusion is identified. 5. No acute infectious or inflammatory findings are seen in the abdomen or pelvis. 6. Hepatic steatosis. 7. Colonic diverticulosis without CT evidence of acute diverticulitis. 8. Induration is seen throughout the abdominal/pelvic pannus with mild dermal thickening. Correlate c linically for evidence of cellulitis. 9. Additional findings as above. ACT 112: Negative or not required by law. Electronically signed by: Griffin Velasquez M.D. 07/04/2022 9:19 AM
[2022-07-04] MEDS ORDERED: PNEUMOCOCCAL POLYSACCHARIDES 25 MCG/0.5 ML VIAL/SYR IM ONE (09:37)
[2022-07-04] MEDS ORDERED: ACETAMINOPHEN 325 MG TAB PO PRN (09:52)
[2022-07-04] MEDS ORDERED: PROMETHAZINE HCL 12.5 MG in SODIUM CHLORIDE 0.9% 50 ML IV PRN (09:52)
[2022-07-04] MEDS: FLUTICASONE/VILANTEROL 100/25MCG 14 PUFFS/INHALER INH SCH (09:57)
[2022-07-04 10:02] LABS: Appearance Urine Clear (Clear); Bilirubin Urine Negative (Negative); Blood Urine Negative (Negative); Color Urine Yellow; Glucose Urine UA Negative (Negative); Ketones Urine Negative (Negative); Leukocyte Esterase Urine Negative (Negative); Nitrite Urine Negative (Negative); Protein Urine Negative (Negative); Specific Gravity Urine 1.014 (1.000-1.030); Urobilinogen Urine Negative (Negative)
[2022-07-04 10:13] LABS: Hematocrit (blood only) 44.8 % (34.1-44.9); Hemoglobin 14.5 g/dl (12.0-16.0)
[2022-07-04 10:28] LABS: Estimated Average Glucose 120 mg/dl; Hemoglobin A1C 5.8 % (4.5-5.6)
[2022-07-04] MEDS: BUPRENORPHINE/NALOXONE 8/2 MG TAB SL SCH ×3 (10:37→20:59)
[2022-07-04] MEDS: PANTOprazole 40 MG TAB PO SCH (10:38)
[2022-07-04] MEDS ORDERED: XOPENEX/ATROVENT 1.25mg/0.5MG NEB COMBO NEB SCH (11:00)
[2022-07-04] MEDS: LEVALBUTEROL 1.25MG/0.5ML NEB INH SCH ×4 (11:16→23:15)
[2022-07-04] MEDS: IPRATROPIUM BROMIDE NEB SOLN 0.02% 2.5 ML VIAL INH SCH ×4 (11:16→23:15)
--- NOTE | 2022-07-04 11:39 | Hospitalist Progress Note ---
Date of Service July 04, 2022 Assessment & Plan (1) Acute respiratory failure: (2) COPD with acute exacerbation: Plan: She received Decadron in the ER and an 1 hour albuterol neb with improvement. She was also transiently on BiPAP with improvement for hypercarbia. She is still very fatigued and will place her back on BiPAP now while she is sleeping. Magnesium was given in the ER, also. She was tested positive for influenza A and was started on oseltamivir therapy. She is notably on chronic Suboxone therapy. Continue prednisone, fluticasone/vilanterol and umeclidinium bromide as scheduled per pulm. Continue oxygen supplementation as needed. Notably she is not on home oxygen. (3) Influenza A: Plan: Tamiflu and supportive care as outlined above. (4) Pain in left lower leg: Plan: Rule out DVT in this leg given recent hospitalization and repeat acute illness. US LLE pending. (5) Thrombocytopenia: Plan: 2/2 consumption of platelets in acute illness. (6) Tobacco use: Plan: Reports today that she is determined to stay quit. Last cigarette was two days ago. Praised for her intentions. (7) Obesity, morbid, BMI 40.0-49.9: Plan: Likely with underlying metabolic syndrome. Will discuss with her about seeing a television repair teacher and considering GLP-1 agonist therapy given BMI 4.6. (8) Chronic back pain: Plan: On chronic suboxone therapy. Lovenox started given elevated risk of DVT. Noted bloody stools reported on H&P, however, she is unable to confirm to me now and H/H is stable. Full Code Dispo-cont PCU monitoring. DO Rachelle Silva Hospitalist Admission and Anticipated Discharge Date Admission Date: July 04, 2022 Subjective 56-year-old obese female smoker with COPD and previous hospitalizations including 1 week ago presented to the ER for worsening shortness of breath. EMS reported oxygen saturation was in the 70s and she improved on CPAP in transit to the ER. She received a continuous DuoNeb and was noted to be febrile and tachycardic. Empiric cefepime and doxycycline were given. She is now up on the floor and is fatigued having trouble staying awake. When she is awake she is oriented and able to answer questions but falls back asleep easily. Blood gas reveals hypercarbia with a CO2 of 55 on VBG. pH is 7.42. She is very bronchospastic on exam and is saturating 98% on 4 L/min via nasal cannula. She reports cough and fever for the past 4 days with the last fever she had measuring 100.7 F. ROS also reveals pain in the anterior left lower leg that is new with some swelling without edema. She reports chronic numbness in her lower legs bilaterally. Review of Systems Review of Systems: All systems reviewed negative except as indicated above. Physical Exam Physical Exam: CONSTITUTIONAL: obese, vitals as above, NAD EYES: pupils are round and equal bilateally, normal conjunctivae, no scleral icterus ENT: external ear and nose normal, MMM NECK: trachea midline RESPIRATORY: wheezing all throughout lung [place], normal respiratory effort CARDIOVASCULAR: regular rate and rhythm, S1 and 2 heard without murmurs, gallops or rubs, no JVD, no peripheral edema CHEST: inspection of chest was normal (+pacemaker, +port) GASTROINTESTINAL: normal bowel sounds, soft, nontender, no hepatomegaly, no guarding MUSCULOSKELETAL: strength 5/5 throughout, head is normocephalic and atraumatic, neck supple, normal palpation of chest wall without tenderness SKIN: warm and dry, no rashes NEUROLOGIC: patellar DTRs 2+ bilat. PERRL, EOMI, no facial palsy, no dysarthria. Touch, pain and proprioception normal. CN 2-12 grossly intact, no sensory deficit, normal cognition, normal speech, no tremor PSYCHIATRIC: alert cooperative and oriented to person, place and time. Euth ymic mood, makes good eye contact, language grossly intact, recent and remote memory grossly intact. LYMPHATIC: no LAD Results & Data Results & Data ([facility]) Vital Signs (Past 12 Hours) Vital Signs Temp Pulse Pulse Pulse Resp BP BP 07/04/22 11:16 82 20 07/04/22 09:00 07/04/22 09:10 37.0 C 103 H 22 123/84 07/04/22 08:32 89 22 07/04/22 07:00 101 H 24 07/04/22 05:55 98 H 26 H 07/04/22 05:05 99 H 28 H 07/04/22 05:26 99 H 26 H 07/04/22 05:04 38.2 C H 102 H 38 H 151/91 H 07/04/22 05:04 BP Pulse Ox O2 Del Method O2 Flow Rate FiO2 07/04/22 11:16 96 Nasal Cannula 4 07/04/22 09:00 Nasal Cannula 5 07/04/22 09:10 94 Nasal Cannula 5 07/04/22 08:32 124/72 94 Nasal Cannula 4 07/04/22 07:00 111/72 94 Nasal Cannula 4 07/04/22 05:55 111/72 99 BiPAP 40 07/04/22 05:05 98 30 07/04/22 05:26 99 BiPAP 40 07/04/22 05:04 98 BiPAP 50 07/04/22 05:04 BiPAP 50 Laboratory Results Short CBC 07/04/22 07/04/22 Range/Units 05:08 09:50 WBC 10.91 H (4.8-10.8) K/ul Hgb 14.0 14.5 (12.0-16.0) g/dl Hct 43.2 44.8 (34.1-44.9) % Plt Count 125 L (130-400) K/uL BMP 07/04/22 05:08 Sodium 134 L Potassium 4.1 Chloride 97 L Carbon Dioxide 33 H BUN 15 Creatinine 0.59 L Glucose 102 H Calcium 8.0 L Liver Function 07/04/22 Range/Units 05:08 Total Bilirubin 0.6 (0.2-1.0) mg/dl Direct Bilirubin 0.2 (0-0.2) mg/dl AST 13 (13-39) U/L ALT 12 (7-52) U/L Alkaline Phosphatase 75 (34-104) U/L Albumin 3.5 (3.4-5.0) gm/dl Urine 07/04/22 Range/Units 09:45 Urine Color Yellow Urine Appearance Clear (Clear) Urine pH 7.0 (4.5-7.5) Ur Specific [place] 1.014 (1.000-1.030) Urine Protein Negative (Negative) Urine Glucose (UA) Negative (Negative) Diagnostic Findings Chest X-Ray 07/04/22 05:00 SINGLE VIEW CHEST CLINICAL HISTORY: Dyspnea. FINDINGS: An AP, portable, upright chest radiograph is compared to chest x-ray and chest CT dated 06/24/2022. The examination is degraded by portable technique and apical lordotic positioning. The heart is enlarged. The pulmonary vasculature is not congested. Emphysema and chronic interstitial thickening is similar to previous. Scarring/atelectasis is noted at the lung bases. No airspace consolidation or large pleural effusion is identified. No pneumothorax is seen. The skeletal structures are osteopenic. The bony thorax is grossly intact. IMPRESSION: Cardiomegaly and emphysema with no acute cardiopulmonary abnormality identified. ACT 112: Negative or not required by law. Electronically signed by: Griffin Velasquez M.D. 07/04/2022 7:03 AM Abdomen/Pelvis CT 07/04/22 06:47 CT ANGIOGRAM OF THE CHEST; CT SCAN OF THE ABDOMEN AND PELVIS WITH IV CONTRAST CLINICAL HISTORY: Atypical chest pain. Generalized abdominal pain. GI bleeding. COMPARISON STUDY: Chest CT dated 06/24/2022. Abdominal CT dated 05/22/2015. TECHNIQUE: Following the IV administration of 116 of Optiray 320, CT angiogram of the chest is performed from the upper abdomen to the thoracic inlet utilizing the pulmonary embolus protocol. Images are reviewed in the axial, sagittal, coronal planes. 3-D MIPS images are created and assessed. Subsequently, CT scan of the abdomen and pelvis was performed from the lung bases to the proximal femora. Images are reviewed in the axial, sagittal, and coronal planes. IV contrast was administered without complication. A dose lowering technique was utilized adhering to the principles of ALARA. The examinations are degraded by large body habitus, and by streak artifact from the body wall abutting the CT gantry. There is also significant motion artifact on the chest CT. CT DOSE: 2676.07 mGy.cm FINDINGS: CHEST: Thyroid: Imaged portions of the thyroid gland are normal in size and attenuation. Thoracic aorta: The thoracic aorta is normal in caliber and demonstrates standard 3-vessel arch anatomy. No dissection is seen. Pulmonary vasculature: The pulmonary trunk is normal in caliber. There are no filling defects identified in the main, lobar, or proximal segmental pulmonary arteries to indicate pulmonary embolus. Evaluation of the segmental and subsegmental branches is degraded by motion artifact. Heart: The heart is normal in size and without pericardial effusion. There are scattered coronary artery calcifications. Lungs and pleural spaces: Evaluation of the lung parenchyma is significantly degraded by motion artifact. Mild emphysematous change is noted. Mild patchy airspace consolidation is seen throughout both lungs. This is new from 06/24/2022 and typical for an infectious/inflammatory pneumonitis. No pleural effusion is identified. The trachea and central airways are clear. Diffuse peribronchial thickening is observed. Mediastinum: There is no mediastinal lymphadenopathy. Thelma: Mildly enlarged hilar nodes measure up to 11 mm in short axis. Axillae: There is no axillary lymphadenopathy. Bony thorax: The skeletal structures are osteopenic. Mild degenerative change is seen throughout the thoracic spine. No lytic or blastic lesions are identified. ABDOMEN AND PELVIS: Liver: The contrast-enhanced liver is top normal in size, measuring 18 cm in length. The liver demonstrates diffusely diminished attenuation indicating steatosis. There is no intrahepatic biliary ductal dilatation. The hepatic veins and portal veins are patent. Gallbladder: Unremarkable. Spleen: Normal in size and attenuation. Pancreas: The pancreas is moderately atrophic and grossly unremarkable. Adrenal glands: Unremarkable. Kidneys: The contrast enhanced kidneys demonstrate mild cortical atrophy and are without hydronephrosis. The kidneys enhance symmetrically. A 9 cm simple cyst arises from the lower pole of the left kidney. A retroaortic left renal vein is incidentally noted. Abdominal vasculature: The abdominal aorta is normal in course and caliber noting moderate atherosclerotic calcification. Bowel: There is [id number] colonic diverticulosis without CT evidence of acute diverticulitis. No bowel obstruction is seen. Moderate fecal retention is noted throughout the colon. The appendix is well-visualized and normal. Peritoneum: There is no intraperitoneal free air or abdominal ascites. There is a fat-containing umbilical hernia. Lymphadenopathy: None. Pelvic viscera: The bladder, uterus, and adnexa are normal as visualized. Skeletal structures: The skeletal structures are osteopenic. There is mild lumbosacral spondylosis. No lytic or blastic lesions are seen. Soft tissues: Induration is seen throughout the abdominal/pelvic pannus with mild interval thickening. No organized/drainable fluid collection is seen to suggest abscess. IMPRESSION: 1. Streak and motion degraded examination is. 2. There is no evidence of central pulmonary embolus in the main, lobar, or proximal segmental pulmonary arteries. The segmental and subsegmental branches are not well assessed due to motion artifact. 3. There is diffuse bronchial thickening with mild patchy airspace consolidation throughout both lungs. This is new from 06/24/2022 and is typical for an infectious/inflammatory pneumonitis. Clinical correlation will be required. 4. No pleural effusion is identified. 5. No acute infectious or inflammatory findings are seen in the abdomen or pelvis. 6. Hepatic steatosis. 7. Colonic diverticulosis without CT evidence of acute diverticulitis. 8. Induration is seen throughout the abdominal/pelvic pannus with mild dermal thickening. Correlate clinically for evidence of cellulitis. 9. Additional findings as above. ACT 112: Negative or not required by law. Electronically signed by: Griffin Velasquez M.D. 07/04/2022 9:19 AM Chest CTA 07/04/22 06:47 CT ANGIOGRAM OF THE CHEST; CT SCAN OF THE ABDOMEN AND PELVIS WITH IV CONTRAST CLINICAL HISTORY: Atypical chest pain. Generalized abdominal pain. GI bleeding. COMPARISON STUDY: Chest CT dated 06/24/2022. Abdominal CT dated 05/22/2015. TECHNIQUE: Following the IV administration of 116 of Optiray 320, CT angiogram of the chest is performed from the upper abdomen to the thoracic inlet utilizing the pulmonary embolus protocol. Images are reviewed in the axial, sagittal, coronal planes. 3-D MIPS images are created and assessed. Subsequently, CT scan of the abdomen and pelvis was performed from the lung bases to the proximal femora. Images are reviewed in the axial, sagittal, and coronal planes. IV contrast was administered without complication. A dose lowering technique was utilized adhering to the principles of ALARA. The examinations are degraded by large body habitus, and by streak artifact from the body wall abutting the CT gantry. There is also significant motion artifact on the chest CT. CT DOSE: 2676.07 mGy.cm FINDINGS: CHEST: Thyroid: Imaged portions of the thyroid gland are normal in size and attenuation. Thoracic aorta: The thoracic aorta is normal in caliber and demonstrates standard 3-vessel arch anatomy. No dissection is seen. Pulmonary vasculature: The pulmonary trunk is normal in caliber. There are no filling defects identified in the main, lobar, or proximal segmental pulmonary arteries to indicate pulmonary embolus. Evaluation of the segmental and subsegmental branches is degraded by motion artifact. Heart: The heart is normal in size and without pericardial effusion. There are scattered coronary artery calcifications. Lungs and pleural spaces: Evaluation of the lung parenchyma is significantly degraded by motion artifact. Mild emphysematous change is noted. Mild patchy airspace consolidation is seen throughout both lungs. This is new from 06/24/2022 and typical for an infectious/inflammatory pneumonitis. No pleural effusion is identified. The trachea and central airways are clear. Diffuse peribronchial thickening is observed. Mediastinum: There is no mediastinal lymphadenopathy. Thelma: Mildly enlarged hilar nodes measure up to 11 mm in short axis. Axillae: There is no axillary lymphadenopathy. Bony thorax: The skeletal structures are osteopenic. Mild degenerative change is seen throughout the thoracic spine. No lytic or blastic lesions are identified. ABDOMEN AND PELVIS: Liver: The contrast-enhanced liver is top normal in size, measuring 18 cm in length. The liver demonstrates diffusely diminished attenuation indicating steatosis. There is no intrahepatic biliary ductal dilatation. The hepatic veins and portal veins are patent. Gallbladder: Unremarkable. Spleen: Normal in size and attenuation. Pancreas: The pancreas is moderately atrophic and grossly unremarkable. Adrenal glands: Unremarkable. Kidneys: The contrast enhanced kidneys demonstrate mild cortical atrophy and are without hydronephrosis. The kidneys enhance symmetrically. A 9 cm simple cyst arises from the lower pole of the left kidney. A retroaortic left renal vein is incidentally noted. Abdominal vasculature: The abdominal aorta is normal in course and caliber noting moderate atherosclerotic calcification. Bowel: There is [id number] colonic diverticulosis without CT evidence of acute diverticulitis. No bowel obstruction is seen. Moderate fecal retention is noted throughout the colon. The appendix is well-visualized and normal. Peritoneum: There is no intraperitoneal free air or abdominal ascites. There is a fat-containing umbilical hernia. Lymphadenopathy: None. Pelvic viscera: The bladder, uterus, and adnexa are normal as visualized. Skeletal structures: The skeletal structures are osteopenic. There is mild lumbosacral spondylosis. No lytic or blastic lesions are seen. Soft tissues: Induration is seen throughout the abdominal/pelvic pannus with mild interval thickening. No organized/drainable fluid collection is seen to suggest abscess. IMPRESSION: 1. Streak and motion degraded examination is. 2. There is no evidence of central pulmonary embolus in the main, lobar, or proximal segmental pulmonary arteries. The segmental and subsegmental branches are not well assessed due to motion artifact. 3. There is diffuse bronchial thickening with mild patchy airspace consolidation throughout both lungs. This is new from 06/24/2022 and is typical for an infectious/inflammatory pneumonitis. Clinical correlation will be required. 4. No pleural effusion is identified. 5. No acute infectious or inflammatory findings are seen in the abdomen or pelvis. 6. Hepatic steatosis. 7. Colonic diverticulosis without CT evidence of acute diverticulitis. 8. Induration is seen throughout the abdominal/pelvic pannus with mild dermal thickening. Correlate clinically for evidence of cellulitis. 9. Additional findings as above. ACT 112: Negative or not required by law. Electronically signed by: Griffin Velasquez M.D. 07/04/2022 9:19 AM Medications Administered Current Inpatient Medications Acetaminophen (Acetaminophen 325 Mg Tab) 650 mg PO Q6H PRN PRN Reason: Fever/pain Stop: 08/03/22 09:51 Buprenorphine/Naloxone (Buprenorphine/Naloxone 8/2 Mg Tab) 1 tab SL TID BOB Stop: 08/03/22 08:59 Last Admin: 07/04/22 10:37 Dose: 1 tab Fluticasone Propionate (Fluticasone Propionate Na Spr 16 Gm Btl) 50 sprays NA HS [facility] Stop: 08/03/22 20:59 Fluticasone/Vilanterol (Fluticasone/Vilanterol 100/25mcg 14 Puffs/Inhaler) 1 puffs INH DAILY [facility] Stop: 08/03/22 08:59 Last Admin: 07/04/22 09:57 Dose: 1 puffs Promethazine HCl 12.5 mg/ (Sodium Chloride) 50.5 mls @ 202 mls/hr IV Q6H PRN PRN Reason: Nausea And Vomiting Stop: 08/03/22 09:51 Clindamycin Phosphate (Cleocin/D5w) 600 mg in 50 mls @ 100 mls/hr IV Q8H [facility] Stop: 07/11/22 15:59 Ipratropium [place] (Ipratropium [place] Neb Soln 0.02% 2.5 Ml Vial) 0.5 mg INH Q4R [facility]OB Stop: 08/03/22 10:59 Last Admin: 07/04/22 11:16 Dose: 0.5 mg Levalbuterol HCl (Levalbuterol 1.25mg/0.5ml Neb) 1.25 mg INH Q4R [facility] Stop: 08/03/22 10:59 Last Admin: 07/04/22 11:16 Dose: 1.25 mg Miscellaneous (Remove Nicoderm Patch) 1 each N/A DAILY@0859 [facility] Stop: 08/04/22 08:58 Nicotine (Nicotine 21 Mg/24 Hr Tdsy) 21 mg TD QAM [facility] Stop: 08/04/22 08:59 Oseltamivir Phosphate (Oseltamivir Phosphate 75 Mg Cap) 75 mg PO BID [facility]; Protocol Stop: 07/08/22 21:01 Pantoprazole Sodium (Pantoprazole 40 Mg Tab) 40 mg PO DAILY [facility] Stop: 08/03/22 08:59 Last Admin: 07/04/22 10:38 Dose: 40 mg Prednisone (Prednisone 20 Mg Tab) 40 mg PO DAILY [facility] Stop: 08/03/22 11:59 Umeclidinium [place] (Umeclidinium [place] 62.5mcg/Blister 7 Puffs/Inhaler) 1 puffs INH DAILY [facility] Stop: 08/03/22 11:44
--- NOTE | 2022-07-04 11:42 | Pulmonary Consultation ---
Date of Consultation July 04, 2022 Assessment & Plan (1) Bronchospasm: (2) SOB (shortness of breath): (3) Tobacco use: (4) Obesity, morbid, BMI 40.0-49.9: Plan Impression: 56-year-old female with history of tobacco abuse and morbid obesity with hypoxemic hypercarbic respiratory failure admitted with exacerbation. She continues to smoke which is likely aggravating the issue and compliance with medical recommendations appears to been an issue as well. She was also found to be flu positive Recommendations: 1. Acute exacerbation COPD/asthma: Prednisone 40 mg a day for 5 days. Breo and Incruse. Outpatient PFTs. 2. Nightly BiPAP 02/03. She has an appointment scheduled with [facility] sleep medicine and will need outpatient polysomnography. Weight loss is paramount. 3. Smoking cessation recommended. Patient was advised that if she continues to smoke, she will have progressive respiratory issues including hospitalizations. 4. Wean oxygen to saturation of 88%. Given her hypercarbia would not try and target oxygen saturations higher than this. 5. Influenza: Currently on Tamiflu. Thank you for the consult. We will reassess in a.m. History of Present Illness Attending Physician: Christy Avila, History of Present Illness Asked by hospitalist to assist in evaluation management this patient admitted with acute exacerbation of obstructive lung disease and hypoxemic and hypercarbic respiratory failure. History is obtained from discussion with the patient as well as the bedside nurse. Patient is a 56-year-old female who is morbidly obese. She is pending evaluation for sleep disordered breathing. She was just admitted to the facility 06/24 through 06/28 for COPD exacerbation. She was post be discharged on inhalers but the patient states she never got any inhalers. She has not kept follow-up appointments to schedule her sleep study. The patient reports to me that she is not smoking although she reported previously to the nurse that she continued to smoke at the rate of a pack per day. She was seen in the emergency room and found to be hypoxemic. She was placed on BiPAP. She is now on nasal cannula. She states she wants to eat. She is coughing and expectorating phlegm. Allergies Allergy/AdvReac Type Severity Reaction Status Date / Time Penicillins Allergy Severe Hives Verified 05/03/20 12:20 adhesive AdvReac Intermediate itching Verified 05/03/20 12:20 morphine AdvReac Intermediate redness, Verified 05/03/20 12:20 hives tramadol AdvReac Intermediate vomiting Verified 05/03/20 12:20 Home Medications Medication Instructions Recorded Confirmed Type albuterol sulfate 90 mcg/actuation 2 puff inhalation Q4H PRN 06/24/22 06/24/22 History aerosol inhaler Shortness Of Breath Or Wheezing buprenorphine 8 mg-naloxone 2 mg 1 tab sublingual TID 06/24/22 06/24/22 History sublingual tablet ipratropium 0.5 mg-albuterol 3 mg 3 ml inhalation Q4H PRN Shortness 06/24/22 06/24/22 History (2.5 mg base)/3 mL nebulization Of Breath Or Wheezing soln pantoprazole 20 mg tablet,delayed 20 mg PO DAILY 06/24/22 06/24/22 History release prednisone 10 mg tablet See Taper PO BID #14 tabs 06/28/22 Rx Flonase 50 mcg NA HS 07/04/22 07/04/22 History Mucinex 600 mg PO BID 07/04/22 07/04/22 History fluticasone 250 mcg-salmeterol 50 2 inh inhalation BID 07/04/22 07/04/22 History mcg/dose blistr powdr for inhalation nicotine 14 mg/24 hr daily 14 mg transdermal DAILY 07/04/22 07/04/22 History transdermal patch Patient History Medical History Asthma inhalers and nebulizer prn Biliary colic Bronchospasm Chronic back pain on suboxone Chronic hepatitis Treated with Mavyret, 8 week course. Finished in 05/2019 Closed head injury pt states "a long time ago" COPD (chronic obstructive pulmonary disease) Depression Emphysema lung History of drug abuse History of DVT (deep vein thrombosis) hx of in left leg HTN (hypertension) Migraine Morbid obesity with BMI of 40.0-44.9, adult Obesity, morbid, BMI 40.0-49.9 Personal history of stroke with residual effects 12/2016--left side pain--no neurologist RBBB Reactive lymphoid hyperplasia (RLH) of head, face and neck Tobacco use Surgical History History of bilateral tubal ligation History of section x3 History of colonoscopy History of herniorrhaphy History of tooth extraction all teeth removed Hx of bilateral breast reduction surgery Family History Aunt Family history of diabetes mellitus Mother Family history of diabetes mellitus Other Cancer Diabetes Heart disease Hypertension Liver transplant recipient No family history of adverse response to anesthesia Social History Smoking Status: Current every day smoker Tobacco Type: Cigarettes Cigarettes Per Day: 20; Second Hand Exposure: No; Do You Dip or Chew Tobacco: No; Tobacco Cessation Education Requested by Patient: No Hx Alcohol Use: No Hx Substance Use: Yes Last Used Substance Other:: LAST USED APPROX. 7 YEARS AGO Substance Use Type Other:: COCAINE Preferred Language: French Communication Ability: Effective Senior Erp Consultant Required: No Beliefs That Will Affect Care: None marital status: in relationship Current Living Situation: Other Current Living Situation Comment: LIVES WITH BOYFRIEND Other Information That Helps Us Care for You: No Feels Safe at Home: Yes Safety Concerns: Feels Safe At This Time Assistive Devices: Denture - Upper, Denture - Lower and Glasses Review of Systems Review of Systems: Please refer to admission H&P. No additions or deletions Physical Exam Physical Exam: Constitutional: Obese appearing female in no distress. Eyes: Pupils are equal round and reactive to light. Conjunctivae are normal. Anicteric sclera. Ears nose, mouth and throat: Mallampati class 4. Normal posterior oropharynx. Uvula is midline. Neck: Trachea is midline. Visual inspection is normal. Respiratory: Diffuse expiratory wheeze and rhonchi. Prolonged phase of exhalation. Cardiovascular: Regular rate and rhythm. No murmurs. No edema. Gastrointestinal: Normal bowel sounds, soft, nontender and nondistended. No hepatosplenomegaly noted. Musculoskeletal: No cyanosis. Patient is able to move all extremities. Strength is 5 out of 5 in the upper and lower extremities. Skin: No rashes, warm dry and intact. Neurologic: No obvious focal neurological deficits seen. Results & Data Results & Data ([facility]) Vital Signs (Past 12 Hours) Vital Signs Temp Pulse Pulse Pulse Resp BP BP 07/04/22 11:16 82 20 07/04/22 09:00 07/04/22 09:10 37.0 C 103 H 22 123/84 07/04/22 08:32 89 22 07/04/22 07:00 101 H 24 07/04/22 05:55 98 H 26 H 07/04/22 05:05 99 H 28 H 07/04/22 05:26 99 H 26 H 07/04/22 05:04 38.2 C H 102 H 38 H 151/91 H 07/04/22 05:04 BP Pulse Ox O2 Del Method O2 Flow Rate FiO2 07/04/22 11:16 96 Nasal Cannula 4 07/04/22 09:00 Nasal Cannula 5 07/04/22 09:10 94 Nasal Cannula 5 07/04/22 08:32 124/72 94 Nasal Cannula 4 07/04/22 07:00 111/72 94 Nasal Cannula 4 07/04/22 05:55 111/72 99 BiPAP 40 07/04/22 05:05 98 30 07/04/22 05:26 99 BiPAP 40 07/04/22 05:04 98 BiPAP 50 07/04/22 05:04 BiPAP 50 Critical Care Results & Data Vital Signs (Past 12 Hours) Vital Signs Temp Pulse Pulse Pulse Resp BP BP 07/04/22 11:16 82 20 07/04/22 09:00 07/04/22 09:10 37.0 C 103 H 22 123/84 07/04/22 08:32 89 22 07/04/22 07:00 101 H 24 07/04/22 05:55 98 H 26 H 07/04/22 05:05 99 H 28 H 07/04/22 05:26 99 H 26 H 07/04/22 05:04 38.2 C H 102 H 38 H 151/91 H 07/04/22 05:04 BP Pulse Ox O2 Del Method O2 Flow Rate FiO2 07/04/22 11:16 96 Nasal Cannula 4 07/04/22 09:00 Nasal Cannula 5 07/04/22 09:10 94 Nasal Cannula 5 07/04/22 08:32 124/72 94 Nasal Cannula 4 07/04/22 07:00 111/72 94 Nasal Cannula 4 07/04/22 05:55 111/72 99 BiPAP 40 07/04/22 05:05 98 30 07/04/22 05:26 99 BiPAP 40 07/04/22 05:04 98 BiPAP 50 07/04/22 05:04 BiPAP 50 Lab & Micro Results (Past 24 Hours) RBC 4.33 M/uL (3.93-5.22) 07/04/22 WBC 10.91 K/ul (4.8-10.8) H 07/04/22 Hgb 14.5 g/dl (12.0-16.0) 07/04/22 Hct 44.8 % (34.1-44.9) 07/04/22 MCV 99.8 fL (80.0-100.0) 07/04/22 MCH 32.3 pg (25.0-34.0) 07/04/22 MCHC 32.4 g/dL (32.0-36.0) 07/04/22 RDW Standard Deviation 49.2 fL (36.4-46.3) H 07/04/22 RDW Coefficient of Variation 13.4 % (11.5-14.5) 07/04/22 Plt Count 125 K/uL (130-400) L 07/04/22 MPV 12.2 fL (9.4-12.3) 07/04/22 Neutrophils (%) (Auto) 85.7 % 07/04/22 Lymphocytes (%) (Auto) 6.3 % 07/04/22 Monocytes # (Auto) 0.71 K/uL (0.24-0.82) 07/04/22 Eosinophils # (Auto) 0.10 K/uL (0-0.50) 07/04/22 Immature Granulocyte % (Auto) 0.5 % 07/04/22 Neutrophils # (Auto) 9.34 K/uL (1.4-6.5) H 07/04/22 Lymphocytes # (Auto) 0.69 K/uL (1.2-3.4) L 07/04/22 Monocytes # (Auto) 0.71 K/uL (0.24-0.82) 07/04/22 Eosinophils # (Auto) 0.10 K/uL (0-0.50) 07/04/22 Basophils # (Auto) 0.01 K/uL (0-0.2) 07/04/22 Immature Granulocyte # (Auto) 0.06 K/uL (0.00-0.02) H 07/04 Na 134 mmol/L (136-145) L 07/04/22 K 4.1 mmol/L (3.5-5.1) 07/04/22 Cl 97 mmol/L (98-107) L 07/04/22 CO2 33 mmol/L (21-32) H 07/04/22 Anion Gap 4 (3-11) 07/04/22 BUN 15 mg/dl (6-23) 07/04/22 Creatinine 0.59 mg/dl (0.6-1.2) L 07/04/22 Estimated GFR ( Amer) 120.4 ml/min 07/04/22 Estimated GFR (Non-Af Amer) 103.9 ml/min 07/04/22 BUN/Creatinine Ratio 25.4 (10-20) H 07/04/22 Glu 102 mg/dl (70-99(Fasting)) H 07/04/22 Ca 8.0 mg/dl (8.5-10.1) L 07/04/22 Total Bilirubin 0.6 mg/dl (0.2-1.0) 07/04/22 Direct Bilirubin 0.2 mg/dl (0-0.2) 07/04/22 AST 13 U/L (13-39) 07/04/22 ALT 12 U/L (7-52) 07/04/22 Alkaline Phosphatase 75 U/L (34-104) 07/04/22 TP 6.2 gm/dl (6.0-8.3) 07/04/22 Albumin 3.5 gm/dl (3.4-5.0) 07/04/22 Mg 1.6 mg/dl (1.7-2.4) L 07/04/22 05:08 Calcium Level 8.0 mg/dl (8.5-10.1) L 07/04/22 05:08 Venous Blood pH 7.42 (7.36-7.41) H 07/04/22 05:08 Venous Blood Partial Pressure CO2 55 mmHg (38-50) H 07/04/22 05 :08 Venous Blood Partial Pressure O2 84 mmHg 07/04/22 05:08 Venous Blood HCO3 36 mmol/L 07/04/22 05:08 Venous Blood Base Excess 9.3 mEq/L 07/04/22 05:08 Venous Blood Oxygen Saturation 98.2 % 07/04/22 05:08 Diagnostic Findings (Past 24 Hours) Chest X-Ray 07/04/22 05:00 SINGLE VIEW CHEST CLINICAL HISTORY: Dyspnea. FINDINGS: An AP, portable, upright chest radiograph is compared to chest x-ray and chest CT dated 06/24/2022. The examination is degraded by portable technique and apical lordotic positioning. The heart is enlarged. The pulmonary vasculature is not congested. Emphysema and chronic interstitial thickening is similar to previous. Scarring/atelectasis is noted at the lung bases. No airspace consolidation or large pleural effusion is identified. No pneumothorax is seen. The skeletal structures are osteopenic. The bony thorax is grossly intact. IMPRESSION: Cardiomegaly and emphysema with no acute cardiopulmonary abnormality identified. ACT 112: Negative or not required by law. Electronically signed by: Griffin Velasquez M.D. 07/04/2022 7:03 AM Abdomen/Pelvis CT 07/04/22 06:47 CT ANGIOGRAM OF THE CHEST; CT SCAN OF THE ABDOMEN AND PELVIS WITH IV CONTRAST CLINICAL HISTORY: Atypical chest pain. Generalized abdominal pain. GI bleeding. COMPARISON STUDY: Chest CT dated 06/24/2022. Abdominal CT dated 05/22/2015. TECHNIQUE: Following the IV administration of 116 of Optiray 320, CT angiogram of the chest is performed from the upper abdomen to the thoracic inlet utilizing the pulmonary embolus protocol. Images are reviewed in the axial, sagittal, coronal planes. 3-D MIPS images are created and assessed. Subsequently, CT scan of the abdomen and pelvis was performed from the lung bases to the proximal femora. Images are reviewed in the axial, sagittal, and coronal planes. IV contrast was administered without complication. A dose lowering technique was utilized adhering to the principles of ALARA. The examinations are degraded by large body habitus, and by streak artifact from the body wall abutting the CT gantry. There is also significant motion artifact on the chest CT. CT DOSE: 2676.07 mGy.cm FINDINGS: CHEST: Thyroid: Imaged portions of the thyroid gland are normal in size and attenuation. Thoracic aorta: The thoracic aorta is normal in caliber and demonstrates standard 3-vessel arch anatomy. No dissection is seen. Pulmonary vasculature: The pulmonary trunk is normal in caliber. There are no filling defects identified in the main, lobar, or proximal segmental pulmonary arteries to indicate pulmonary embolus. Evaluation of the segmental and subsegmental branches is degraded by motion artifact. Heart: The heart is normal in size and without pericardial effusion. There are scattered coronary artery calcifications. Lungs and pleural spaces: Evaluation of the lung parenchyma is significantly degraded by motion artifact. Mild emphysematous change is noted. Mild patchy airspace consolidation is seen throughout both lungs. This is new from 06/24/2022 and typical for an infectious/inflammatory pneumonitis. No pleural effusion is identified. The trachea and central airways are clear. Diffuse peribronchial thickening is observed. Mediastinum: There is no mediastinal lymphadenopathy. Thelma: Mildly enlarged hilar nodes measure up to 11 mm in short axis. Axillae: There is no axillary lymphadenopathy. Bony thorax: The skeletal structures are osteopenic. Mild degenerative change is seen throughout the thoracic spine. No lytic or blastic lesions are identified. ABDOMEN AND PELVIS: Liver: The contrast-enhanced liver is top normal in size, measuring 18 cm in length. The liver demonstrates diffusely diminished attenuation indicating steatosis. There is no intrahepatic biliary ductal dilatation. The hepatic veins and portal veins are patent. Gallbladder: Unremarkable. Spleen: Normal in size and attenuation. Pancreas: The pancreas is moderately atrophic and grossly unremarkable. Adrenal glands: Unremarkable. Kidneys: The contrast enhanced kidneys demonstrate mild cortical atrophy and are without hydronephrosis. The kidneys enhance symmetrically. A 9 cm simple cyst arises from the lower pole of the left kidney. A retroaortic left renal vein is incidentally noted. Abdominal vasculature: The abdominal aorta is normal in course and caliber noting moderate atherosclerotic calcification. Bowel: There is [id number] colonic diverticulosis without CT evidence of acute diverticulitis. No bowel obstruction is seen. Moderate fecal retention is noted throughout the colon. The appendix is well-visualized and normal. Peritoneum: There is no intraperitoneal free air or abdominal ascites. There is a fat-containing umbilical hernia. Lymphadenopathy: None. Pelvic viscera: The bladder, uterus, and adnexa are normal as visualized. Skeletal structures: The skeletal structures are osteopenic. There is mild lumbosacral spondylosis. No lytic or blastic lesions are seen. Soft tissues: Induration is seen throughout the abdominal/pelvic pannus with mild interval thickening. No organized/drainable fluid collection is seen to suggest abscess. IMPRESSION: 1. Streak and motion degraded examination is. 2. There is no evidence of central pulmonary embolus in the main, lobar, or proximal segmental pulmonary arteries. The segmental and subsegmental branches are not well assessed due to motion artifact. 3. There is diffuse bronchial thickening with mild patchy airspace consolidation throughout both lungs. This is new from 06/24/2022 and is typical for an infectious/inflammatory pneumonitis. Clinical correlation will be required. 4. No pleural effusion is identified. 5. No acute infectious or inflammatory findings are seen in the abdomen or pelvis. 6. Hepatic steatosis. 7. Colonic diverticulosis without CT evidence of acute diverticulitis. 8. Induration is seen throughout the abdominal/pelvic pannus with mild dermal thickening. Correlate clinically for evidence of cellulitis. 9. Additional findings as above. ACT 112: Negative or not required by law. Electronically signed by: Griffin Velasquez M.D. 07/04/2022 9:19 AM Chest CTA 07/04/22 06:47 CT ANGIOGRAM OF THE CHEST; CT SCAN OF THE ABDOMEN AND PELVIS WITH IV CONTRAST CLINICAL HISTORY: Atypical chest pain. Generalized abdominal pain. GI bleeding. COMPARISON STUDY: Chest CT dated 06/24/2022. Abdominal CT dated 05/22/2015. TECHNIQUE: Following the IV administration of 116 of Optiray 320, CT angiogram of the chest is performed from the upper abdomen to the thoracic inlet utilizing the pulmonary embolus protocol. Images are reviewed in the axial, sagittal, coronal planes. 3-D MIPS images are created and assessed. Subsequently, CT scan of the abdomen and pelvis was performed from the lung bases to the proximal femora. Images are reviewed in the axial, sagittal, and coronal planes. IV contrast was administered without complication. A dose lowering technique was utilized adhering to the principles of ALARA. The examinations are degraded by large body habitus, and by streak artifact from the body wall abutting the CT gantry. There is also significant motion artifact on the chest CT. CT DOSE: 2676.07 mGy.cm FINDINGS: CHEST: Thyroid: Imaged portions of the thyroid gland are normal in size and attenuation. Thoracic aorta: The thoracic aorta is normal in caliber and demonstrates standard 3-vessel arch anatomy. No dissection is seen. Pulmonary vasculature: The pulmonary trunk is normal in caliber. There are no filling defects identified in the main, lobar, or proximal segmental pulmonary arteries to indicate pulmonary embolus. Evaluation of the segmental and subsegmental branches is degraded by motion artifact. Heart: The heart is normal in size and without pericardial effusion. There are scattered coronary artery calcifications. Lungs and pleural spaces: Evaluation of the lung parenchyma is significantly degraded by motion artifact. Mild emphysematous change is noted. Mild patchy airspace consolidation is seen throughout both lungs. This is new from 06/24/2022 and typical for an infectious/inflammatory pneumonitis. No pleural effusion is identified. The trachea and central airways are clear. Diffuse peribronchial thickening is observed. Mediastinum: There is no mediastinal lymphadenopathy. Thelma: Mildly enlarged hilar nodes measure up to 11 mm in short axis. Axillae: There is no axillary lymphadenopathy. Bony thorax: The skeletal structures are osteopenic. Mild degenerative change is seen throughout the thoracic spine. No lytic or blastic lesions are identified. ABDOMEN AND PELVIS: Liver: The contrast-enhanced liver is top normal in size, measuring 18 cm in length. The liver demonstrates diffusely diminished attenuation indicating steatosis. There is no intrahepatic biliary ductal dilatation. The hepatic veins and portal veins are patent. Gallbladder: Unremarkable. Spleen: Normal in size and attenuation. Pancreas: The pancreas is moderately atrophic and grossly unremarkable. Adrenal glands: Unremarkable. Kidneys: The contrast enhanced kidneys demonstrate mild cortical atrophy and are without hydronephrosis. The kidneys enhance symmetrically. A 9 cm simple cyst arises from the lower pole of the left kidney. A retroaortic left renal vein is incidentally noted. Abdominal vasculature: The abdominal aorta is normal in course and caliber noting moderate atherosclerotic calcification. Bowel: There is [id number] colonic diverticulosis without CT evidence of acute diverticulitis. No bowel obstruction is seen. Moderate fecal retention is noted throughout the colon. The appendix is well-visualized and normal. Peritoneum: There is no intraperitoneal free air or abdominal ascites. There is a fat-containing umbilical hernia. Lymphadenopathy: None. Pelvic viscera: The bladder, uterus, and adnexa are normal as visualized. Skeletal structures: The skeletal structures are osteopenic. There is mild lumbosacral spondylosis. No lytic or blastic lesions are seen. Soft tissues: Induration is seen throughout the abdominal/pelvic pannus with mild interval thickening. No organized/drainable fluid collection is seen to suggest abscess. IMPRESSION: 1. Streak and motion degraded examination is. 2. There is no evidence of central pulmonary embolus in the main, lobar, or proximal segmental pulmonary arteries. The segmental and subsegmental branches are not well assessed due to motion artifact. 3. There is diffuse bronchial thickening with mild patchy airspace consolidation throughout both lungs. This is new from 06/24/2022 and is typical for an infectious/inflammatory pneumonitis. Clinical correlation will be required. 4. No pleural effusion is identified. 5. No acute infectious or inflammatory findings are seen in the abdomen or pelvis. 6. Hepatic steatosis. 7. Colonic diverticulosis without CT evidence of acute diverticulitis. 8. Induration is seen throughout the abdominal/pelvic pannus with mild dermal thickening. Correlate clinically for evidence of cellulitis. 9. Additional findings as above. ACT 112: Negative or not required by law. Electronically signed by: Griffin Velasquez M.D. 07/04/2022 9:19 AM I & O Totals 24 Hours 07/03/22 07/04/22 07/05/22 06:59 06:59 06:59 Intake Total 600 / 600 260 / 260 Output Total 1100 / 1100 Balance 600 / 600 -840 / -840 Cumulative 07/04/22 04:35 thru 07/04/22 10:27 Intake Total 860 Output Total 1100 Balance -240 RT Ventilator Mngmt (Last Documented) Ventilator Ordered Settings Respiratory Rate 20 07/04/22 11:16 Fraction of Inspired Oxygen 40 07/04/22 05:55 Ventilator - PT Measurements Respiratory Rate 20 PG Care Time/CCT Total # of Minutes Spent Total Time Spent with Patient: Total time spent is greater than 50% in coordination of care (as documented) at patient's floor/unit and/or counseling patient: Coding Level of Care Code 76541 Inpt Consult Level 4 Diagnoses Bronchospasm J98.01 SOB (shortness of breath) R06.02 Tobacco use Z72.0 Obesity, morbid, BMI 40.0-49.9 E66.01
[2022-07-04] MEDS: UMECLIDINIUM BROMIDE 62.5MCG/BLISTER 7 PUFFS/INHALER INH SCH (12:49)
[2022-07-04] MEDS: predniSONE 20 MG TAB PO SCH (12:49)
--- NOTE | 2022-07-04 15:12 | Ultrasound Report ---
ULTRASOUND BILATERAL LOWER EXTREMITY VENOUS CLINICAL HISTORY: Lower extremity edema COMPARISON STUDY: Left lower extremity venous ultrasound dated 06/24/2022. TECHNIQUE: Real-time, grayscale, and color Doppler sonography of the deep veins of the right and left lower extremity was performed from the inguinal crease to the calf. Compression and augmentation wer e utilized. FINDINGS: Right lower extremity: There is no sonographic evidence of deep venous thrombosis in the right lower extremity. The common femoral, superficial femoral, and popliteal veins are patent and normally compr essible. The greater saphenous vein and the profunda femoris vein at the junction with the common fem oral vein are clear. The visualized calf veins are patent. Left lower extremity: Again seen is stranding within the left common femoral, superficial femoral, an d popliteal veins. This likely represents trace chronic thrombus. There is no sonographic evidence of acute deep venous thrombosis in the left lower extremity. The vessels are compressible. The greater saphenous vein and the profunda femoris vein at the junction with the common femoral vein are clear. The visualized calf veins are suboptimally assessed and grossly clear. IMPRESSION: 1. Stranding throughout the deep veins of the left lower extremity is similar to previous and likely represents trace chronic thrombus. 2. There is no sonographic evidence of acute deep venous thrombosis in the right or left lower extrem ity. ACT 112: Negative or not required by law. Electronically signed by: Griffin Velasquez M.D. 07/04/2022 3:10 PM
[2022-07-04] MEDS: CLINDAMYCIN/D5W 600 MG/50 ML BAG IV SCH (16:58)
[2022-07-04] MEDS ORDERED: LEVALBUTEROL 1.25MG/0.5ML NEB INH SCH (17:00)
[2022-07-04] MEDS ORDERED: IPRATROPIUM BROMIDE NEB SOLN 0.02% 2.5 ML VIAL INH SCH (17:00)
[2022-07-04] MEDS: FLUTICASONE PROPIONATE NA SPR 16 GM BTL SCH (21:00)
[2022-07-04] MEDS: ENOXAPARIN INJ 40 MG/0.4 ML SYR SQ SCH (21:00)
[2022-07-04] MEDS: OSELTAMIVIR PHOSPHATE 75 MG CAP PO SCH (21:01)
[2022-07-04] MEDS ORDERED: DICLOFENAC SOD 1% GEL 100 GM TUBE EXT PRN (22:17)
[2022-07-05 06:24] LABS: Basophils # (auto) 0.02 K/uL (0-0.2); Basophils % (auto) 0.2 %; Hematocrit (blood only) 42.7 % (34.1-44.9); Hemoglobin 13.7 g/dl (12.0-16.0); Immature Granulocytes # (auto) 0.05 K/uL (0.00-0.02); Immature Granulocytes % (auto) 0.5 %; Lymphocytes # (auto) 0.58 K/uL (1.2-3.4); Lymphocytes % (auto) 5.5 %; Mean Corpuscular Hemoglobin 32.2 pg (25.0-34.0); Mean Corpuscular Hgb Conc 32.1 g/dL (32.0-36.0); Mean Corpuscular Volume 100.5 fL (80.0-100.0); Mean Platelet Volume 12.2 fL (9.4-12.3); Monocytes # (auto) 0.71 K/uL (0.24-0.82); Monocytes % (auto) 6.7 %; Neutrophils # (auto) 9.22 K/uL (1.4-6.5); Neutrophils % (auto) 87.1 %; Platelet Count 131 K/uL (130-400); RDW Coefficient of Variation 13.3 % (11.5-14.5); RDW Standard Deviation 49.3 fL (36.4-46.3); Red Blood Count 4.25 M/uL (3.93-5.22); White Blood Count 10.58 K/ul (4.8-10.8)
[2022-07-05] MEDS: IPRATROPIUM BROMIDE NEB SOLN 0.02% 2.5 ML VIAL INH SCH ×4 (07:03→19:39)
[2022-07-05] MEDS: LEVALBUTEROL 1.25MG/0.5ML NEB INH SCH ×4 (07:03→19:39)
[2022-07-05 07:26] LABS: BUN Creatinine Ratio 44.8 (10-20); Calcium 8.3 mg/dl (8.5-10.1); Creatinine Clr Calc Pharmacy 121.4 ml/min; Est GFR (African American) 121.1 ml/min; Est GFR (Non-African American) 104.5 ml/min; Magnesium 2.3 mg/dl (1.7-2.4)
[2022-07-05] MEDS: PANTOprazole 40 MG TAB PO SCH (08:01)
[2022-07-05] MEDS: predniSONE 20 MG TAB PO SCH (08:01)
[2022-07-05] MEDS: FLUTICASONE/VILANTEROL 100/25MCG 14 PUFFS/INHALER INH SCH (08:01)
[2022-07-05] MEDS: UMECLIDINIUM BROMIDE 62.5MCG/BLISTER 7 PUFFS/INHALER INH SCH (08:01)
[2022-07-05] MEDS: OSELTAMIVIR PHOSPHATE 75 MG CAP PO SCH ×2 (08:01→19:57)
[2022-07-05] MEDS: ENOXAPARIN INJ 40 MG/0.4 ML SYR SQ SCH (08:02)
[2022-07-05] MEDS: NICOTINE 21 MG/24 HR TDSY TD SCH (08:03)
[2022-07-05] MEDS: BUPRENORPHINE/NALOXONE 8/2 MG TAB SL SCH ×3 (08:08→19:56)
[2022-07-05] MEDS ORDERED: methylPREDNISolone 40 MG in SYRINGE 0 ML IV SCH (09:00)
[2022-07-05] MEDS: CLINDAMYCIN/D5W 600 MG/50 ML BAG IV SCH ×3 (09:06→14:56)
--- NOTE | 2022-07-05 12:06 | Pulmonology Progress Note ---
Date of Service July 05, 2022 Assessment & Plan (1) Bronchospasm: (2) SOB (shortness of breath): (3) Tobacco use: (4) Obesity, morbid, BMI 40.0-49.9: Plan Impression: 56-year-old female with history of tobacco abuse and morbid obesity with hypoxemic hypercarbic respiratory failure admitted with exacerbation. She is positive for influenza and is on oseltamavir. She is not been compliant with recommendations previously Recommendations: 1. Acute exacerbation COPD/asthma: Prednisone 40 mg a day for 5 days. Breo and Incruse. Outpatient PFTs. 2. Nightly BiPAP 02/03. She has an appointment scheduled with [facility] sleep medicine and will need outpatient polysomnography. Weight loss is paramount. Patient was again instructed in the importance of adherence to noninvasive positive pressure ventilation at night. Unclear if she will be compliant 3. Smoking cessation recommended. Patient was advised that if she continues to smoke, she will have progressive respiratory issues including hospitalizations. She states she is motivated to stop smoking. Remains to be seen whether or not she will be ultimately successful 4. Wean oxygen to saturation of 88%. Given her hypercarbia would not try and target oxygen saturations higher than this. 5. Influenza: Currently on Tamiflu. Will continue to follow. Admission and Anticipated Discharge Date Admission Date: July 04, 2022 Subjective Patient seen and examined. She is sitting up in bed currently receiving a breathing treatment. She is awake and alert. She reports she did not use BiPAP last night as they did not hook her up but the nurse relates that respiratory therapy tried to hook her up on several occasions and the patient declined. She is not expectorating any phlegm. She is occasionally coughing. She denies fevers chills or night sweats. Review of Systems Review of Systems: All systems reviewed & are unremarkable except as noted in Subjective Physical Exam Physical Exam: Constitutional: Obese appearing female in no distress. Eyes: Pupils are equal round and reactive to light. Conjunctivae are normal. Anicteric sclera. Ears nose, mouth and throat: Mallampati class 4. Normal posterior oropharynx. Uvula is midline. Neck: Trachea is midline. Visual inspection is normal. Respiratory: Diffuse expiratory wheeze and rhonchi. Prolonged phase of exhalation. Cardiovascular: Regular rate and rhythm. No murmurs. No edema. Gastrointestinal: Normal bowel sounds, soft, nontender and nondistended. No hepatosplenomegaly noted. Musculoskeletal: No cyanosis. Patient is able to move all extremities. Strength is 5 out of 5 in the upper and lower extremities. Skin: No rashes, warm dry and intact. Neurologic: No obvious focal neurological deficits seen. Results & Data Results & Data ([facility]) Vital Signs (Past 12 Hours) Vital Signs Temp Pulse Pulse Pulse Resp BP Pulse Ox 07/05/22 11:20 72 20 97 07/05/22 07:51 07/05/22 08:18 37.2 C 102 H 19 120/77 94 07/05/22 07:03 65 16 96 07/05/22 06:56 54 L 07/05/22 03:15 37.0 C 74 22 116/61 96 07/05/22 00:50 69 O2 Del Method O2 Flow Rate 07/05/22 11:20 Nasal Cannula 3 07/05/22 07:51 Nasal Cannula 3 07/05/22 08:18 Nasal Cannula 3.0 07/05/22 07:03 Nasal Cannula 2 07/05/22 06:56 07/05/22 03:15 Nasal Cannula 2 07/05/22 00:50 Laboratory Results 07/05/22 06:05 07/05/22 06:05 Diagnostic Findings No new imaging PG Care Time/CCT Total # of Minutes Spent Total Time Spent with Patient: Total time spent is greater than 50% in coordination of care (as documented) at patient's floor/unit and/or counseling patient: Coding Level of Care Code 42075 Subseq Hosp Care Lvl 2 Diagnoses Bronchospasm J98.01 SOB (shortness of breath) R06.02 Tobacco use Z72.0 Obesity, morbid, BMI 40.0-49.9 E66.01
[2022-07-05] MEDS: HEPARIN SODIUM/DEXTROSE 25,000 UNITS/500 ML BAG IV SCH (12:36)
[2022-07-05] MEDS: Heparin IV Adult Wt-Based Standard *NO* Bolus Protocol IV SCH ×3 (12:43→12:45)
--- NOTE | 2022-07-05 13:11 | Hospitalist Progress Note ---
Date of Service July 05, 2022 Assessment & Plan (1) Acute respiratory failure: (2) COPD with acute exacerbation: Plan: She was tested positive for influenza A and was started on oseltamivir therapy. She is notably on chronic Suboxone therapy. Continue prednisone, fluticasone/vilanterol and umeclidinium bromide as scheduled per pulm. Nebulized bronchodilators as needed. Continue oxygen supplementation as needed. Notably she is not on home oxygen. Encourage ambulation and incentive spirometry as tolerated. (3) Influenza A: Plan: Tamiflu and supportive care as outlined above. (4) Pain in left lower leg: Plan: Rule out DVT in this leg given recent hospitalization and repeat acute illness. US LLE shows evidence of chronic thrombi. With symptoms and clinical appearance of the leg and given the compromised respiratory status, have opted to treat her with heparin, started this am. MELINDA hopson. (5) Thrombocytopenia: Plan: 2/2 consumption of platelets in acute illness. (6) Tobacco use: Plan: Contemplative phase. Last cigarette was two days ago. Praised for her intentions. (7) Obesity, morbid, BMI 40.0-49.9: Plan: Likely with underlying metabolic syndrome. Will discuss with her about seeing a real estate internship and considering GLP-1 agonist therapy given BMI 4.6. (8) Chronic back pain: Plan: On chronic suboxone therapy. Heparin drip-no further issue with blood in stool. Full Code Dispo-cont PCU monitoring. DO Rachelle Silva Hospitalist Admission and Anticipated Discharge Date Admission Date: July 04, 2022 Subjective 56-year-old obese female smoker with COPD and previous hospitalizations including 1 week ago presented to the ER for worsening shortness of breath. EMS reported oxygen saturation was in the 70s and she improved on CPAP in transit to the ER. She received a continuous DuoNeb and was noted to be febrile and tachycardic. She is less fatigued today and reportedly was noncompliant with BIPAP overnight as ordered She reports feeling better overall We discussed the left leg and chronic thrombi found on us in the leg. With leg still being warm to touch and dusky blue with swelling, she was started on heparin. She verbalized understanding. We discussed a plan to switch her to eliquis as long as not cost prohibitive and she was agreeable Still requiring 2LPM oxygen today Review of Systems Review of Systems: All systems reviewed negative except as indicated above. Physical Exam Physical Exam: CONSTITUTIONAL: obese, vitals as above, NAD EYES: pupils are round and equal bilaterally, normal conjunctivae, no scleral icterus ENT: external ear and nose normal, MMM NECK: trachea midline RESPIRATORY: wheezing all throughout lung carrasquillo, normal respiratory effort, improved since yesterday. CARDIOVASCULAR: regular rate and rhythm, S1 and 2 heard without murmurs, gallops or rubs, no JVD, no peripheral edema CHEST: inspection of chest was normal GASTROINTESTINAL: soft, nontender, protuberant, nondistended, no guarding MUSCULOSKELETAL: strength 5/5 throughout, head is normocephalic and atraumatic SKIN: warm and dry, dusky hue to left lower leg which is larger than the right and warmer to touch. NEUROLOGIC: CN 2-12 grossly intact, no sensory deficit, normal cognition, normal speech, no tremor PSYCHIATRIC: alert cooperative and oriented to person, place and time. Euthymic mood, makes good eye contact, language grossly intact, recent and remote memory grossly intact. Results & Data Results & Data ([facility]) Vital Signs (Past 12 Hours) Vital Signs Temp Pulse Pulse Pulse Resp BP Pulse Ox 07/05/22 12:41 37.0 C 78 19 111/72 95 07/05/22 11:20 72 20 97 07/05/22 07:51 07/05/22 08:18 37.2 C 102 H 19 120/77 94 07/05/22 07:03 65 16 96 07/05/22 06:56 54 L 07/05/22 03:15 37.0 C 74 22 116/61 96 O2 Del Method O2 Flow Rate 07/05/22 12:41 Nasal Cannula 3.0 07/05/22 11:20 Nasal Cannula 3 07/05/22 07:51 Nasal Cannula 3 07/05/22 08:18 Nasal Cannula 3.0 07/05/22 07:03 Nasal Cannula 2 07/05/22 06:56 07/05/22 03:15 Nasal Cannula 2 Laboratory Results Short CBC 07/05/22 Range/Units 06:05 WBC 10.58 (4.8-10.8) K/ul Hgb 13.7 (12.0-16.0) g/dl Hct 42.7 (34.1-44.9) % Plt Count 131 (130-400) K/uL BMP 07/05/22 06:05 Sodium 138 Potassium 5.0 D Chloride 99 Carbon Dioxide 38 H BUN 26 H Creatinine 0.58 L Glucose 125 H Calcium 8.3 L Medications Administered Current Inpatient Medications Acetaminophen (Acetaminophen 325 Mg Tab) 650 mg PO Q6H PRN PRN Reason: Fever/pain Stop: 08/03/22 09:51 Buprenorphine/Naloxone (Buprenorphine/Naloxone 8/2 Mg Tab) 1 tab SL TID BOB Stop: 08/03/22 08:59 Last Admin: 07/05/22 08:08 Dose: 1 tab Diclofenac Sodium (Diclofenac Sod 1% Gel 100 Gm Tube) 2 gm EXT QID PRN; Protocol PRN Reason: joint pain Stop: 08/03/22 22:16 Fluticasone Propionate (Fluticasone Propionate Na Spr 16 Gm Btl) 50 sprays NA HS [facility] Stop: 08/03/22 20:59 Last Admin: 07/04/22 21:00 Dose: 2 sprays Fluticasone/Vilanterol (Fluticasone/Vilanterol 100/25mcg 14 Puffs/Inhaler) 1 puffs INH DAILY [facility]OB Stop: 08/03/22 08:59 Last Admin: 07/05/22 08:01 Dose: 1 puffs Promethazine HCl 12.5 mg/ (Sodium Chloride) 50.5 mls @ 202 mls/hr IV Q6H PRN PRN Reason: Nausea And Vomiting Stop: 08/03/22 09:51 Clindamycin Phosphate (Cleocin/D5w) 600 mg in 50 mls @ 100 mls/hr IV Q8H [facility]OB Stop: 07/11/22 15:59 Last Infusion: 07/05/22 09:36 Dose: Infused Heparin Sodium/Dextrose (Heparin Sodium/Dextrose) 25,000 units in 500 mls @ 25 mls/hr IV .Q20H BOB; Protocol Stop: 08/04/22 10:44 Last Admin: 07/05/22 12:36 Dose: 1,250 units/hr, 25 mls/hr Ipratropium [place]arks (Ipratropium [place] Neb Soln 0.02% 2.5 Ml Vial) 0.5 mg INH QIDR BOB Stop: 08/03/22 18:59 Last Admin: 12/18/22 11:19 Dose: 0.5 mg Levalbuterol HCl (Levalbuterol 1.25mg/0.5ml Neb) 1.25 mg INH QIDR [facility] Stop: 08/03/22 18:59 Last Admin: 07/05/22 11:19 Dose: 1.25 mg Miscellaneous (Remove Nicoderm Patch) 1 each N/A DAILY@0859 [facility] Stop: 08/04/22 08:58 Last Admin: 07/05/22 08:02 Dose: 1 each Nicotine (Nicotine 21 Mg/24 Hr Tdsy) 21 mg TD QAM [facility] Stop: 08/04/22 08:59 Last Admin: 07/05/22 08:03 Dose: 21 mg Oseltamivir Phosphate (Oseltamivir Phosphate 75 Mg Cap) 75 mg PO BID [facility]; Protocol Stop: 07/08/22 21:01 Last Admin: 07/05/22 08:01 Dose: 75 mg Pantoprazole Sodium (Pantoprazole 40 Mg Tab) 40 mg PO DAILY [facility] Stop: 08/03/22 08:59 Last Admin: 07/05/22 08:01 Dose: 40 mg Prednisone (Prednisone 20 Mg Tab) 40 mg PO DAILY [facility] Stop: 08/03/22 11:59 Last Admin: 07/05/22 08:01 Dose: 40 mg Umeclidinium [place] (Umeclidinium [place] 62.5mcg/Blister 7 Puffs/Inhaler) 1 puffs INH DAILY [facility] Stop: 08/03/22 11:44 Last Admin: 07/05/22 08:01 Dose: 1 puffs
[2022-07-05 13:19] LABS: Partial Thromboplastin Time 27.2 Seconds (21.0-31.0)
[2022-07-05 19:28] LABS: Partial Thromboplastin Ratio 1.9
[2022-07-05 19:33] LABS: Partial Thromboplastin Time 52.4 Seconds (21.0-31.0)
[2022-07-05] MEDS: FLUTICASONE PROPIONATE NA SPR 16 GM BTL SCH (19:56)
--- NOTE | 2022-07-05 21:55 | Electrocardiogram Report ---
Test Reason : Blood Pressure : / mmHG Vent. Rate : 102 BPM Atrial Rate : 102 BPM P-R Int : 126 ms QRS Dur : 114 ms QT Int : 366 ms P-R-T Axes : 045 092 024 degrees QTc Int : 477 ms Sinus tachycardia Right bundle branch block Abnormal ECG When compared with ECG of 24-JUN-2022 11:02, Vent. rate has increased BY 35 BPM Inverted T waves have replaced nonspecific T wave abnormality in Anterior leads Confirmed by Venkatesh Potts ([id number]) on 07/05/2022 9:54:45 PM Referred By: REFERRED SELF Confirmed By:Venkatesh Potts
[2022-07-06] MEDS: CLINDAMYCIN/D5W 600 MG/50 ML BAG IV SCH ×2 (00:09→07:46)
[2022-07-06] MEDS: IPRATROPIUM BROMIDE NEB SOLN 0.02% 2.5 ML VIAL INH SCH (06:57)
[2022-07-06] MEDS: LEVALBUTEROL 1.25MG/0.5ML NEB INH SCH (06:57)
[2022-07-06 07:33] LABS: Partial Thromboplastin Ratio 3.6
[2022-07-06 07:37] LABS: Partial Thromboplastin Time 100.2 Seconds (21.0-31.0)
[2022-07-06] MEDS ORDERED: LEVALBUTEROL 1.25MG/0.5ML NEB INH PRN (07:41)
[2022-07-06] MEDS ORDERED: IPRATROPIUM BROMIDE NEB SOLN 0.02% 2.5 ML VIAL INH PRN (07:41)
[2022-07-06] MEDS: predniSONE 20 MG TAB PO SCH (07:44)
[2022-07-06] MEDS: OSELTAMIVIR PHOSPHATE 75 MG CAP PO SCH ×2 (07:45→20:35)
[2022-07-06] MEDS: FLUTICASONE/VILANTEROL 100/25MCG 14 PUFFS/INHALER INH SCH (07:45)
[2022-07-06] MEDS: UMECLIDINIUM BROMIDE 62.5MCG/BLISTER 7 PUFFS/INHALER INH SCH (07:45)
[2022-07-06] MEDS: NICOTINE 21 MG/24 HR TDSY TD SCH (07:48)
[2022-07-06] MEDS: PANTOprazole 40 MG TAB PO SCH (07:48)
--- NOTE | 2022-07-06 08:02 | Pulmonology Progress Note ---
Date of Service July 06, 2022 Assessment & Plan (1) Bronchospasm: (2) SOB (shortness of breath): (3) Tobacco use: (4) Obesity, morbid, BMI 40.0-49.9: Plan Impression: 56-year-old female with history of tobacco abuse and morbid obesity with hypoxemic hypercarbic respiratory failure admitted with exacerbation. She is positive for influenza and is on oseltamavir. She is not been compliant with recommendations previously CTA chest 07/04/2022 personally reviewed: Patchy groundglass opacities appreciated bilaterally especially in the bilateral lower lobes Minimal mediastinal lymphadenopathy Recommendations: -- Acute hypoxic respiratory failure Likely secondary to asthma-COPD exacerbation with influenza positive Continue with bronchodilators With O2 supplementation to keep oxygen saturation between 88-92% -- Influenza Complete the course of oseltamivir for 5 days -- Active smoker Importance of quitting explained the patient in depth --Probable ERMA/OHS Continue with BiPAP/CPAP nightly and as needed shortness of breath --Obesity Advised to lose with diet and exercise Plan: Continue with Incruse and Breo on a daily basis Add flutter valve and Mucinex Pleuritic chest pain is most likely from significant coughing. Decrease prednisone to 20 mg for 3 more days as of tomorrow DC oxygen while at rest. Check for oxygen on exertion Patient will benefit from loaner CPAP/BiPAP when going home. Case was discussed with RN at bedside Please note the above document was generated using voice recognition software. It may contain grammatical, syntax or spelling errors.Any formal questions or concerns about the content, text or information contained within the body of this dictation should be directly addressed to the provider for clarification. Admission and Anticipated Discharge Date Admission Date: July 04, 2022 Subjective Patient seen and examined at bedside. No acute distress, no adverse events overnight Case was discussed with outgoing vp communications Patient says she is feeling better after coming to the hospital Still complains of pleuritic pain which is reproducible on palpation. Coughing up clear phlegm. No hemoptysis. Was saturating 97% on 2 L nasal cannula at rest. Fair appetite, no nausea or vomiting Review of Systems Review of Systems: All systems reviewed & are unremarkable except as noted in Subjective Physical Exam Physical Exam: Constitutional: No acute distress HEENT: EOMI, PERRLA Respiratory system: Decreased air entry bilaterally, no rhonchi, no crackles, positive expiratory wheeze bilaterally CVS: S1-S2 positive, no murmurs or gallops Abdomen: Soft, nontender, nondistended, positive bowel sounds x4, obese Extremities: +2 pulses bilaterally radialis/ dorsalis pedis, no cyanosis, no edema Neuro: Awake alert oriented x3 Psych: Normal mood and affect G/U: No Rdz Skin: no rashes, warm and dry Lymphatic: no cervical or axillary lymphadenopathy Results & Data Results & Data ([facility]) Vital Signs (Past 12 Hours) Vital Signs Temp Pulse Pulse Pulse Resp BP Pulse Ox 07/06/22 06:57 71 20 96 07/06/22 05:36 35 C L 66 18 110/73 96 07/06/22 04:00 56 L 14 95 07/06/22 00:00 79 07/06/22 00:00 07/06/22 01:59 73 21 96 07/05/22 23:10 36.8 C 88 22 136/98 98 07/05/22 21:19 07/05/22 20:02 37.1 C 109 H 20 109/58 L 96 O2 Del Method O2 Flow Rate 07/06/22 06:57 Nasal Cannula 3 07/06/22 05:36 BiPAP 3 07/06/22 04:00 BiPAP 3 07/06/22 00:00 07/06/22 00:00 BiPAP 3 07/06/22 01:59 2 07/05/22 23:10 Nasal Cannula 3 07/05/22 21:19 Nasal Cannula 4 07/05/22 20:02 Nasal Cannula 2 Laboratory Results 07/05/22 06:05 07/05/22 06:05 PG Care Time/CCT Total # of Minutes Spent Total Time Spent with Patient: Total time spent is greater than 50% in coordination of care (as documented) at patient's floor/unit and/or counseling patient: Coding Level of Care Code 49125 Subseq Hosp Care Lvl 3 Diagnoses Bronchospasm J98.01 SOB (shortness of breath) R06.02 Tobacco use Z72.0 Obesity, morbid, BMI 40.0-49.9 E66.01
[2022-07-06] MEDS: HEPARIN SODIUM/DEXTROSE 25,000 UNITS/500 ML BAG IV SCH (08:39)
[2022-07-06] MEDS: BUPRENORPHINE/NALOXONE 8/2 MG TAB SL SCH ×3 (08:41→20:41)
--- NOTE | 2022-07-06 10:55 | Hospitalist Progress Note ---
Date of Service July 06, 2022 Assessment & Plan (1) Acute respiratory failure: (2) COPD with acute exacerbation: Plan: She was tested positive for influenza A and was started on oseltamivir therapy. She is notably on chronic Suboxone therapy. Continue prednisone, fluticasone/vilanterol and umeclidinium bromide as scheduled per pulm. Nebulized bronchodilators as needed. Continue oxygen supplementation as needed. Notably she is not on home oxygen. Encourage ambulation and incentive spirometry as tolerated. She was doing well on room air but felt she needed oxygen supplementation. She began having a described panic attack and oxygen saturation dropped to 85%, so oxygen was replaced. Even though she recovered fine she feels she needs to supplemental oxygen to go home with. (3) Influenza A: Plan: Tamiflu and supportive care as outlined above. (4) Pain in left lower leg: Plan: Rule out DVT in this leg given recent hospitalization and repeat acute illness. US LLE shows evidence of chronic thrombi. With symptoms and clinical appearance of the leg and given the compromised respiratory status, have opted to treat her with heparin, which has improved her leg tremendously. Transitioning to apixaban overnight and cost checked and is $3 (5) Thrombocytopenia: Plan: 2/2 consumption of platelets in acute illness improved. (6) Tobacco use: Plan: Contemplative phase. Last cigarette [employer]. Praised for her intentions. (7) Obesity, morbid, BMI 40.0-49.9: Plan: Likely with underlying metabolic syndrome. Will discuss with her about seeing a hand gluer and slicer and considering GLP-1 agonist therapy given BMI 4.6. (8) Chronic back pain: Plan: On chronic suboxone therapy. Heparin drip Full Code Dispo-cont PCU monitoring. To home likely in am. DO Rachelle Silva Hospitalist Admission and Anticipated Discharge Date Admission Date: July 04, 2022 Subjective 56-year-old obese female smoker with COPD and previous hospitalizations including 1 week ago presented to the ER for worsening shortness of breath. EMS reported oxygen saturation was in the 70s and she improved on CPAP in transit to the ER. She received a continuous DuoNeb and was noted to be febrile and tachycardic. chest and abdominal pain reported today in response to coughing overnight although cough syrup reported, she declines this lle pain is improved on the heparin color and warmth of leg has improved afebrile overnight she reports not having gotten out of bed yesterday or today and was encouraged to do this. no oxygen needs at rest Review of Systems Review of Systems: All systems reviewed negative except as indicated above. Physical Exam Physical Exam: CONSTITUTIONAL: obese, vitals as above, NAD EYES: pupils are round and equal bilaterally, normal conjunctivae, no scleral icterus ENT: external ear and nose normal, MMM NECK: trachea midline RESPIRATORY: wheezing all throughout lung carrasquillo, normal respiratory effort, improved since yesterday. CARDIOVASCULAR: regular rate and rhythm, S1 and 2 heard without murmurs, gallops or rubs, no JVD, no peripheral edema CHEST: inspection of chest was normal GASTROINTESTINAL: soft, nontender, protuberant, nondistended, no guarding MUSCULOSKELETAL: strength 5/5 throughout, head is normocephalic and atraumatic SKIN: warm and dry, dusky hue to left lower leg has now become more normal and symmetric in color to other leg and temperature has equalized NEUROLOGIC: CN 2-12 grossly intact, no sensory deficit, normal cognition, normal speech, no tremor PSYCHIATRIC: alert cooperative and oriented to person, place and time. Euthymic mood, makes good eye contact, language grossly intact, recent and remote memory grossly intact. Results & Data Results & Data ([facility]) Vital Signs (Past 12 Hours) Vital Signs Temp Pulse Pulse Pulse Resp BP Pulse Ox 07/06/22 10:24 36.8 C 69 17 126/85 91 07/06/22 08:00 109 H 07/06/22 08:00 07/06/22 08:16 36.9 C 80 20 118/67 95 07/06/22 06:57 71 20 96 07/06/22 05:36 35 C L 66 18 110/73 96 07/06/22 04:00 56 L 14 95 07/06/22 00:00 79 07/06/22 00:00 07/06/22 01:59 73 21 96 07/05/22 23:10 36.8 C 88 22 136/98 98 O2 Del Method O2 Flow Rate 07/06/22 10:24 Room Air 07/06/22 08:00 07/06/22 08:00 Nasal Cannula, BiPAP 3 07/06/22 08:16 Nasal Cannula 2 07/06/22 06:57 Nasal Cannula 3 07/06/22 05:36 BiPAP 3 07/06/22 04:00 BiPAP 3 07/06/22 00:00 07/06/22 00:00 BiPAP 3 07/06/22 01:59 2 07/05/22 23:10 Nasal Cannula 3 Medications Administered Current Inpatient Medications Acetaminophen (Acetaminophen 325 Mg Tab) 650 mg PO Q6H PRN PRN Reason: Fever/pain Stop: 08/03/22 09:51 Apixaban (Apixaban 5 Mg Tablet) 10 mg PO BID [facility] Stop: 07/13/22 09:01 Last Admin: 07/06/22 20:34 Dose: 10 mg Buprenorphine/Naloxone (Buprenorphine/Naloxone 8/2 Mg Tab) 1 tab SL TID [facility] Stop: 08/03/22 08:59 Last Admin: 07/06/22 20:41 Dose: 1 tab Diclofenac Sodium (Diclofenac Sod 1% Gel 100 Gm Tube) 2 gm EXT QID PRN; Protocol PRN Reason: joint pain Stop: 08/03/22 22:16 Fluticasone Propionate (Fluticasone Propionate Na Spr 16 Gm Btl) 50 sprays NA HS [facility] Stop: 08/03/22 20:59 Last Admin: 07/06/22 20:36 Dose: 50 sprays Fluticasone/Vilanterol (Fluticasone/Vilanterol 100/25mcg 14 Puffs/Inhaler) 1 puffs INH DAILY [facility] Stop: 08/03/22 08:59 Last Admin: 07/06/22 07:45 Dose: 1 puffs Guaifenesin/Dextromethorphan (Guaifenesin/Dextrom Syrup 200mg/20mg 10ml Udc) 10 ml PO Q8 [facility] Stop: 08/05/22 13:59 Last Admin: 07/06/22 22:56 Dose: 10 ml Ipratropium [place] (Ipratropium [place] Neb Soln 0.02% 2.5 Ml Vial) 0.5 mg INH QIDR PRN PRN Reason: SOB/wheezing Stop: 08/03/22 18:59 Last Admin: 07/06/22 12:55 Dose: 0.5 mg Levalbuterol HCl (Levalbuterol 1.25mg/0.5ml Neb) 1.25 mg INH QIDR PRN PRN Reason: SOB/wheezing Stop: 08/03/22 18:59 Last Admin: 07/06/22 12:55 Dose: 1.25 mg Miscellaneous (Remove Nicoderm Patch) 1 each N/A DAILY@0859 [facility] Stop: 08/04/22 08:58 Last Admin: 07/06/22 07:46 Dose: 1 each Nicotine (Nicotine 21 Mg/24 Hr Tdsy) 21 mg TD QAM [facility] Stop: 08/04/22 08:59 Last Admin: 07/06/22 07:48 Dose: 21 mg Oseltamivir Phosphate (Oseltamivir Phosphate 75 Mg Cap) 75 mg PO BID [facility]; Protocol Stop: 07/08/22 21:01 Last Admin: 07/06/22 20:35 Dose: 75 mg Pantoprazole Sodium (Pantoprazole 40 Mg Tab) 40 mg PO DAILY [facility] Stop: 08/03/22 08:59 Last Admin: 07/06/22 07:48 Dose: 40 mg Prednisone (Prednisone 20 Mg Tab) 40 mg PO DAILY [facility] Stop: 08/03/22 11:59 Last Admin: 07/06/22 07:44 Dose: 40 mg Umeclidinium [place] (Umeclidinium [place] 62.5mcg/Blister 7 Puffs/Inhaler) 1 puffs INH DAILY [facility] Stop: 08/03/22 11:44 Last Admin: 07/06/22 07:45 Dose: 1 puffs
[2022-07-06] MEDS: guaiFENesin/DEXTROM SYRUP 200MG/20MG 10ML UDC PO SCH ×2 (13:53→22:56)
[2022-07-06 15:51] LABS: Partial Thromboplastin Ratio 2.3
[2022-07-06 15:58] LABS: Partial Thromboplastin Time 63.9 Seconds (21.0-31.0)
[2022-07-06] MEDS: APIXABAN 5 MG TABLET PO SCH (20:34)
[2022-07-06] MEDS: FLUTICASONE PROPIONATE NA SPR 16 GM BTL SCH (20:36)
[2022-07-06 21:59] LABS: Partial Thromboplastin Ratio 1.4; Partial Thromboplastin Time 37.8 Seconds (21.0-31.0)
[2022-07-07] MEDS: guaiFENesin/DEXTROM SYRUP 200MG/20MG 10ML UDC PO SCH ×2 (06:26→13:33)
--- NOTE | 2022-07-07 09:24 | Pulmonology Progress Note ---
Date of Service July 07, 2022 Assessment & Plan (1) Bronchospasm: (2) SOB (shortness of breath): (3) Tobacco use: (4) Obesity, morbid, BMI 40.0-49.9: Plan Impression: 56-year-old female with history of tobacco abuse and morbid obesity with hypoxemic hypercarbic respiratory failure admitted with exacerbation. She is positive for influenza and is on oseltamavir. She is not been compliant with recommendations previously CTA chest 07/04/2022 personally reviewed: Patchy groundglass opacities appreciated bilaterally especially in the bilateral lower lobes Minimal mediastinal lymphadenopathy Recommendations: -- Acute hypoxic respiratory failure Likely secondary to asthma-COPD exacerbation with influenza positive Continue with bronchodilators With O2 supplementation to keep oxygen saturation between 88-92% -- Influenza Complete the course of oseltamivir for 5 days -- Active smoker Importance of quitting explained the patient in depth --Probable ERMA/OHS Continue with BiPAP/CPAP nightly and as needed shortness of breath --Obesity Advised to lose with diet and exercise Plan: Decrease prednisone to 20 mg, give for 2 more days and then stop. Patient did use CPAP/BiPAP overnight and found benefit from it. I would recommend if possible to send the patient on loaner BiPAP/CPAP while she gets sleep study done. I do not think patient needs oxygen while at rest. Check for oxygen on exertion. Consider adding Incruse/Spiriva inhaler to her home inhaler regimen. No further recommendation for pulmonary perspective. We will sign off. Please call directly with any questions Outpatient pulmonary follow-up Case was discussed with RN at bedside and Dr Avila Please note the above document was generated using voice recognition software. It may contain grammatical, syntax or spelling errors.Any formal questions or concerns about the content, text or information contained within the body of this dictation should be directly addressed to the provider for clarification. Admission and Anticipated Discharge Date Admission Date: July 04, 2022 Subjective Patient seen and examined at bedside. No acute distress, no adverse events overnight. She was saturating 97% on 3 L. I went down to 1 L. Overall she is feeling better. Shortness of breath is improved Still coughing and bringing up clear phlegm. Denies any hemoptysis No nausea vomiting, fair appetite No headache She did use BiPAP at night Review of Systems Review of Systems: All systems reviewed & are unremarkable except as noted in Subjective Physical Exam Physical Exam: Constitutional: No acute distress HEENT: EOMI, PERRLA Respiratory system: Decreased air entry bilaterally, no rhonchi, no crackles, positive expiratory wheeze bilaterally CVS: S1-S2 positive, no murmurs or gallops Abdomen: Soft, nontender, nondistended, positive bowel sounds x4, obese Extremities: +2 pulses bilaterally radialis/ dorsalis pedis, no cyanosis, no edema Neuro: Awake alert oriented x3 Psych: Normal mood and affect G/U: No Rdz Skin: no rashes, warm and dry Lymphatic: no cervical or axillary lymphadenopathy Results & Data Results & Data ([facility]) Vital Signs (Past 12 Hours) Vital Signs Temp Pulse Pulse Resp BP Pulse Ox O2 Del Method 07/07/22 07:29 68 16 124/82 96 CPAP 07/07/22 02:15 60 22 98 07/06/22 21:54 36.6 C 85 20 158/87 H 97 Nasal Cannula O2 Flow Rate 07/07/22 07:29 07/07/22 02:15 2 07/06/22 21:54 2 Laboratory Results 07/05/22 06:05 07/05/22 06:05 PG Care Time/CCT Total # of Minutes Spent Total Time Spent with Patient: Total time spent is greater than 50% in coordination of care (as documented) at patient's floor/unit and/or counseling patient: Coding Level of Care Code 91724 Subseq Hosp Care Lvl 2 Diagnoses Bronchospasm J98.01 SOB (shortness of breath) R06.02 Tobacco use Z72.0 Obesity, morbid, BMI 40.0-49.9 E66.01
[2022-07-07] MEDS: predniSONE 20 MG TAB PO SCH (09:35)
[2022-07-07] MEDS: OSELTAMIVIR PHOSPHATE 75 MG CAP PO SCH (09:35)
[2022-07-07] MEDS: UMECLIDINIUM BROMIDE 62.5MCG/BLISTER 7 PUFFS/INHALER INH SCH (09:36)
[2022-07-07] MEDS: FLUTICASONE/VILANTEROL 100/25MCG 14 PUFFS/INHALER INH SCH (09:36)
[2022-07-07] MEDS: PANTOprazole 40 MG TAB PO SCH (09:36)
[2022-07-07] MEDS: APIXABAN 5 MG TABLET PO SCH (09:36)
[2022-07-07] MEDS: NICOTINE 21 MG/24 HR TDSY TD SCH (09:37)
[2022-07-07] MEDS: BUPRENORPHINE/NALOXONE 8/2 MG TAB SL SCH ×2 (09:39→13:34)
--- NOTE | 2022-07-07 15:13 | Discharge Summary ---
Discharge Summary Date of Service July 07, 2022 Notes For Next Care Provider Please ensure there are no bleeding issues on apixaban This was started for chronic thrombus in left leg but with redness and swelling and pain present, improved on heparin drip in the hospital She was started on home oxygen to use with ambulation Smoking cessation was strongly advised Outpatient sleep study and experience design director consultation were recommended Medication Changes From Visit Tamiflu-complete the course Prednisone-20mg daily x 5 days after course in the hospital for bronchospasm home oxygen 2 LPM with ambulation Apixaban starter pack for DVT leg leg Incruse Ellipta inhaler started once daily Admission HPI Per Admitting Provider History obtained from patien and records. Medical history significant for COPD, morbid obesity possible ERMA, HCV status post Rx, chronic pain on Suboxone, past history DVT status post thrombectomy status post Coumadin, diverticulosis, ongoing tobacco abuse. Recent confinement last week for respiratory failure secondary to COPD exacerbation. Patient discharged on redness on taper and started on inhaled corticosteroids/LABA as per Pulmonology recommendations. Patient still was not feeling well at time of discharge but she wanted to go home. Patient Pulmonology and Sleep medicine referrals given possible symptoms of ERMA, daytime sleepiness contemplated following PCP visit 3 days ago. Worsening shortness of breath symptoms the last few days. Pleuritic chest pain associated with junky cough productive of yellow sputum. Patient admits to occasional choking and gagging symptoms with food/water intake. Patient not sure about COVID-19 contacts given recent confinement and PCP visit. Patient has not received COVID-19 vaccination. Fluid retention with abdominal distention, possible weight gain, leg swelling left greater than the right. Achy lower abdominal pain with bloody stools nondiarrheal yesterday morning as per patient. EMS called to patient's home. O2 sats noted to be 70s upon EMS arrival. BiPAP initiated upon arrival at the ER. Cefepime, doxycycline, Decadron and neb treatment administered at the ER. Medical History as above 2020 colonoscopy showed diverticulosis Surgical History : section, dental surgery, thrombectomy, hernia repair, BTL, breast reduction Family History : Breast cancer Personal/Social history : 1 pack daily, no EtOH intake, disabled Admission Exam Per Admitting Provider Physical Exam: GENERAL: Comfortable, morbidly obese, respiratory distress SKIN: Normal color, warm HEENT: [place] palpebral conjunctivae, no ptosis, dry buccal mucosa, BiPAP in place NECK : Supple, short neck, no tenderness CHEST : Decreased breath sounds, expiratory wheezes, no tenderness HEART : RRR, no obvious murmurs ABDOMEN: Some distention, minimal hypogastric tenderness EXTREMITIES : Bilateral LE swelling, left greater than the right, no overt tenderness, no other conspicuous deformities noted NEUROLOGIC : Coherent, no facial asymmetry, no other gross focality Principal Dx & Hospital Course #1 = Principal Diagnosis (1) Acute respiratory failure: (2) COPD with acute exacerbation: (3) Influenza A: (4) Pain in left lower leg: (5) Thrombocytopenia: (6) Tobacco use: (7) Obesity, morbid, BMI 40.0-49.9: (8) Chronic back pain: Plan The patient is a 56 yo smoker with morbid obesity who presents with shortness of breath from bronchospasm in the setting of influenza A infection. She is also on chronic Suboxone therapy and reports a sedentary lifestyle at home. She was started on steroids, Tamiflu and nebulized bronchodilators. She was seen by pulmonology and monitored for a couple of days in the hospital. Oxygen saturation was good at rest, however, she was noted to be hypoxic with ambulation and was sent home with 2LPM oxygen supplementation and a continued prednisone taper. An outpatient sleep study was also recommended as was a nutrition consult to help with weight loss in the setting of presumed insulin resistance, metabolic syndrome. Smoking cessation was strongly advised. She verbalized understanding of the instructions with intent to comply. Notably her left lower extremity was more swollen with a dusky hue to the skin and was painful per patient for the last couple of months. An ultrasound with doppler of the leg revealed stranding throughout the deep veins of the lower extremity similar to previous likely representing trace chronic thrombus. She was placed on a heparin drip without any changes to her H/H, and there was no evidence of bleeding. She was successfully transitioned to apixaban and the cost of this was determined to be $3 per month. This was discussed with her on discharge and she left in stable condition with close primary care follow-up recommended. Discharge Exam CONSTITUTIONAL: obese, vitals as above, NAD EYES: pupils are round and equal bilaterally, normal conjunctivae, no scleral icterus ENT: external ear and nose normal, MMM NECK: trachea midline RESPIRATORY: wheezing all throughout lung [place], normal respiratory effort, improved since yesterday. CARDIOVASCULAR: regular rate and rhythm, S1 and 2 heard without murmurs, gallops or rubs, no JVD, no peripheral edema CHEST: inspection of chest was normal GASTROINTESTINAL: soft, nontender, protuberant, nondistended, no guarding MUSCULOSKELETAL: strength 5/5 throughout, head is normocephalic and atraumatic SKIN: warm and dry, dusky hue to left lower leg has now become more normal and symmetric in color to other leg and temperature has equalized NEUROLOGIC: CN 2-12 grossly intact, no sensory deficit, normal cognition, normal speech, no tremor PSYCHIATRIC: alert cooperative and oriented to person, place and time. Euthymic mood, makes good eye contact, language grossly intact, recent and remote memory grossly intact. Updated Medication List Medication Instructions Recorded Confirmed Type albuterol sulfate 90 mcg/actuation 2 puff inhalation Q4H PRN 06/24/22 06/24/22 History aerosol inhaler Shortness Of Breath Or Wheezing buprenorphine 8 mg-naloxone 2 mg 1 tab sublingual TID 06/24/22 06/24/22 History sublingual tablet ipratropium 0.5 mg-albuterol 3 mg 3 ml inhalation Q4H PRN Shortness 06/24/22 06/24/22 History (2.5 mg base)/3 mL nebulization Of Breath Or Wheezing soln pantoprazole 20 mg tablet,delayed 20 mg PO DAILY 06/24/22 06/24/22 History release Flonase 50 mcg NA HS 07/04/22 07/04/22 History Mucinex 600 mg PO BID 07/04/22 07/04/22 History fluticasone 250 mcg-salmeterol 50 2 inh inhalation BID 07/04/22 07/04/22 History mcg/dose blistr powdr for inhalation nicotine 14 mg/24 hr daily 14 mg transdermal DAILY 07/04/22 07/04/22 History transdermal patch apixaban 5 mg (74 tabs) tablets in 5 mg PO BID #74 ea 07/06/22 Rx a dose pack Oxygen Home #1 ea 07/07/22 Rx oseltamivir 75 mg capsule (Tamiflu) 75 mg PO BID #4 caps 07/07/22 Rx prednisone 20 mg tablet 20 mg PO DAILY #5 tabs 07/07/22 Rx tiotropium bromide 2.5 2 inh inhalation DAILY #4 grams 07/09/22 Rx mcg/actuation mist for inhalation (Spiriva Respimat) Hospital Stay Data Consultations 07/04/22 06:09 ED Decision to Admit Stat 07/04/22 06:54 Consult Pulmonology Routine Diagnostic Imagining Performed 07/04/22 06:47 CT Abd and Pelvis [CT abd pelvis IV con only] Stat CT angio chest PE protocol Stat US venous doppler LE BI Urgent Pending Results Patient Have Any Pending Studies at Discharge: No Discharge Instructions Given to Patient (Per Discharging Provider) Please take all medications as instructed on discharge list below. You are being provided with additional prednisone to take as well as a few pills of tamiflu to complete the course. You are being placed on apixaban to treat remaining blood clots in your left leg, which may be contributing to the abnormal color and swelling in this area. You will need to take this for at least 3 months. Please don't take other blood thinners while on this. Please avoid heights or power tools as you have a significant risk of bleeding if hurt. If you fall and hit your head, please seek immediate medical attention. Please discuss these new treatments on follow-up. Please take 10mg apixaban during the first week, then switch to 5mg twice daily from that point on. Please obtain all refills from your primary care physician. It is recommended that you follow up with your primary care physician at the date and time above. You have been provided oxygen to use with movement. Please do not smoke or allow the oxygen near any open flame. Staying quit with smoking is strongly recommended for improvement of your lung function and overall health. Taking steps to decrease your overall percent body fat and increase your amount of lean muscle is recommended for overall better health. Please consider a referral to a experience design director physician who may put you in touch with medications that may assist you in this endeavor. It was a pleasure taking care of you! Please call if you have any questions or problems. You can reach a [facility] hospitalist on duty at [facility] 24 hours a day by calling [phone]. Take care of yourself. Christy Avila, DO [facility] Hospitalist Total Time Total Time Spent Total Time Spent (In Minutes): 60
[2022-07-08] MEDS ORDERED: predniSONE 20 MG TAB PO SCH (09:00)
--- NOTE | 2022-07-09 11:31 | Communication Note ---
Date of Service: July 09, 2022 Received a prior authorization requirement for Bella Bauer. Switched her to covered Spiriva respimat as an alternative therapy option-2 puffs once daily. RN will base with patient by phone to update her. sms
== END 2022-07-07 17:18 | disposition home or self-care (01) | DRG 189 ==
LOC: ED 04:50 → 2E 06:50 → 3E 07-06 19:55